=== PATIENT | male | born 1970 | race Caucasian/White ===

== ENCOUNTER 2016-06-21 03:34 | Outpatient (CLI) ==
[2012-11-07 13:18] VITALS: TEMP 97.6
[2016-05-26 11:58] VITALS: BMI 21.2
== END 2016-06-21 03:35 | disposition home or self-care (01) ==
LOC: AMBL 03:34
PROVIDERS: ATTEND Family Medicine
DX: R10.9 Unspecified abdominal pain (principal); K85.20 Alcohol induced acute pancreatitis without necrosis or infection

== ENCOUNTER 2016-09-15 05:13 | Inpatient (IN) ==
[2016-09-15 05:26] VITALS: BMI 19.6
[2016-09-15] MEDS ORDERED: DILAUDID 1 MG/ML SYRINGE IVP STA ×2 (05:36→06:50)
[2016-09-15] MEDS ORDERED: SODIUM CHLORIDE 1,000 ML IV STA (05:36)
[2016-09-15] MEDS ORDERED: ATIVAN IVP STA ×2 (05:36→06:50)
[2016-09-15] MEDS ORDERED: ZOFRAN 4 MG/2 ML IVP STA (05:36)
[2016-09-15 05:56] LABS: BASOPHILS # (AUTO) 0.1 K/uL (0-0.2); BASOPHILS % (AUTO) 0.6 % (0.0-3.0); EOSINOPHILS # (AUTO) 0.2 K/ul (0.0-0.7); EOSINOPHILS % (AUTO) 2.3 % (0.0-7.0); HEMATOCRIT 50.9 % (42.0-52.0); HEMOGLOBIN 18.2 g/dl (14.0-18.0); IMMATURE GRANULOCYTE % (AUTO) 0.3 % (0.0-5.0); LYMPHOCYTES # (AUTO) 2.8 K/uL (0.60-3.4); LYMPHOCYTES % (AUTO) 27.4 (10.0-50.0); MEAN CORPUSCULAR HEMOGLOBIN 34.2 pg (27.0-31.0); MEAN CORPUSCULAR HGB CONC 35.8 (31.8-35.4); MEAN CORPUSCULAR VOLUME 95.7 fl (80.0-94.0); MONOCYTES # (AUTO) 0.8 K/uL (0.4-2.0); MONOCYTES % (AUTO) 7.7 (0-10); NEUTROPHILS # (AUTO) 6.2 K/ul (2.0-6.9); NEUTROPHILS % (AUTO) 61.7; PLATELET COUNT 295 10^3/uL (140-440); RED BLOOD COUNT 5.32 10^6/ul (4.70-6.10); WHITE BLOOD COUNT 10.04 K/ul (4.2-10.2)
--- NOTE | 2016-09-15 06:03 | ED.PDOC ---
General <WESLY BRASHER - Last Filed: 09/15/16 09:19> Stated Complaint: i started drinking again last night--now im hurting Time Seen by Physician: 05:20 Mode of Arrival: Walk-In Information Source: Patient Exam Limitations: No limitations Nursing and Triage Documentation Reviewed and Agree: Yes <ALECSADIALICHA - Last Filed: 09/17/16 06:21> ED Provider: Dr. LICHA MIRANDA Chief Complaint: Abdominal Pain GI Complaint Exam - Abdominal Pain Complaint/Exam Onset: Gradual Duration: several hours Symptoms Are: Still present Timing: Constant Initial Severity: Mild Current Severity: Mild Location of Pain: Diffuse Radiates To: Reports: Back Character: Reports: Dull, Aching, Cramping Aggravating: Reports: None Alleviating: Reports: None Associated Signs and Symptoms: Reports: Back pain, Nausea. Denies: Diaphoresis , Fever, Cough, Chest pain, Dizziness, Constipation, Blood in stool, Dysuria, Urinary frequency, Decreased urine output, Decreased appetite, Discharge, Vomiting, Diarrhea, Decreased activity Related History: Reports: Similar episode (previous hx of pancreatitis) AAA Risk Factors: Reports: None Cardiac Risk Factors: Reports: None Testicular Torsion Risk Factors: Reports: None Surgical Obstruction Risk Factors: Reports: Colicky abdominal pain Abdominal Findings: Present: None Differential Diagnoses: Bowel Obstruction, Constipation, Pancreatitis Quality Indicator For Non-Traumatic Chest Pain/Syncope: EKG Performed <ALECAngelitoLICHA CASTRO - Last Filed: 09/17/16 06:21> Review of Systems - Review Of Systems Constitutional: Reports: No symptoms Eyes: Reports: No symptoms Ears, Nose, Mouth, Throat: Reports: No symptoms Respiratory: Reports: No symptoms Cardiac: Reports: No symptoms GI: Reports: Abdominal pain, Nausea : Reports: No symptoms Musculoskeletal: Reports: No symptoms Skin: Reports: No symptoms Neurological: Reports: No symptoms Endocrine: Reports: No symptoms Hematologic/Lymphatic: Reports: No symptoms All Other Systems: Reviewed and Negative <ALECAngelitoLICHA CASTRO - Last Filed: 09/17/16 06:21> Past Medical History - Past Medical History Previously Healthy: Yes Endocrine: Reports: None Cardiovascular: Reports: AR, Hypertension Respiratory: Reports: None Hematological: Reports: None Gastrointestinal: Reports: Pancreatitis Genitourinary: Reports: None Neuro/Psych: Reports: Anxiety, Other (ALCOHOLIC) Musculoskeletal: Reports: Unknown Cancer: Reports: None Other Pertinent Past Medical History: etoh - Surgical History General Surgical History: Reports: Cholecystectomy, Orthopedic (CARPAL TUNNEL LEFT, hand sx) - Family History Family History: Reports: Unknown - Social History Smoking Status: Current every day smoker, Heavy tobacco smoker Hx Substance Use: Yes Alcohol Screening: Occasionally Lives: With family - Immunizations Tetanus Shot up to Date: Yes (08/24/13) <LICHA MIRANDA - Last Filed: 09/17/16 06:21> Physical Exam - Physical Exam Appearance: Well-appearing, No pain distress, Well-nourished Pain Distress: Moderate Eyes: JOLANTA ENT: Ears normal Neck: Supple Respiratory: Airway patent, Breath sounds clear, Breath sounds equal, Respirations nonlabored Cardiovascular: RRR GI/: Soft, Nontender, No masses, Bowel sounds normal, No Organomegaly Musculoskeletal: Normal strength, ROM intact, No edema, No calf tenderness Skin: Warm, Dry, Normal color Neurological: Sensation intact Psychiatric: Affect appropriate, Mood appropriate <LICHA MIRANDA Last Filed: 09/17/16 06:21> Interpretation - Radiology Interpretation Radiology Interpretation By: Radiologist Radiology Results: Positive Exam Interpreted: CT Scan (Pancraetitis, Pseudocyst ) <WESLY BRASHER - Last Filed: 09/15/16 09:19> Physician Notification - Case Discussed Physician Notified: Dr Pardo Time of Notification: 09:00 <WESLY BRASHER Last Filed: 09/15/16 09:19> - Case Discussed Physician Notified: dr brasher Time of Notification: 07:00 <LICHA MIRANDA - Last Filed: 09/17/16 06:21> Critical Care Note - Critical Care Note Total Time (mins): 0 <LICHA MIRANDA - Last Filed: 09/17/16 06:21> Course - Course Hematology/Chemistry: 09/15/16 05:45 09/15/16 05:45 <WESLY BRASHER - Last Filed: 09/15/16 09:19> - Course Hematology/Chemistry: 09/17/16 05:14 09/17/16 05:14 <LICHA MIRANDA - Last Filed: 09/17/16 06:21> - Course Orders, Labs, Meds: Lab Review 09/15/16 09/15/16 05:45 07:25 WBC 10.04 RBC 5.32 Hgb 18.2 H Hct 50.9 MCV 95.7 H MCH 34.2 H MCHC 35.8 H RDW Coeff of Reginaldo 12.7 Plt Count 295 Immature Gran % (Auto) 0.3 Neut % (Auto) 61.7 Lymph % (Auto) 27.4 Calloway % (Auto) 7.7 Eos % (Auto) 2.3 Baso % (Auto) 0.6 Immature Gran # (Auto) 0.0 Neut # 6.2 Lymph # 2.8 Calloway # 0.8 Eos # 0.2 Baso # 0.1 Sodium 140 Potassium 4.3 Chloride 97 L Carbon Dioxide 28 Anion Gap 19.3 BUN 5 L Creatinine 0.69 Estimated GFR (MDRD) 123.00 BUN/Creatinine Ratio 7.24 Glucose 113 H Calcium 10.6 H Total Bilirubin 0.98 AST 22 ALT 15 Alkaline Phosphatase 96 Total Creatine Kinase 69 Troponin I 0.0100 Total Protein 8.7 H Albumin 4.7 Globulin 4.0 Albumin/Globulin Ratio 1.18 Amylase 186 H Lipase 185 H Urine Color Yellow Urine Clarity Clear Urine pH 6.0 Ur Specific [place] 1.010 Urine Protein 1+ Urine Glucose (UA) Negative Urine Ketones Negative Urine Blood Trace-intact Urine Nitrite Negative Urine Bilirubin Negative Urine Urobilinogen 0.2 Ur Leukocyte Esterase Trace Urine Microscopic RBC 2-5 Urine Microscopic WBC 2-5 Ur Squamous Epith Cells Not present Ur Renal Epithelial Cell 0-2 Urine Bacteria Trace Urine Mucus Trace Urine Opiates Screen Positive Ur Oxycodone Screen Negative Urine Methadone Screen Negative Ur Propoxyphene Screen Negative Ur Barbiturates Screen Negative U Tricyclic Antidepress Negative Ur Phencyclidine Scrn Negative Ur Amphetamine Screen Negative U Methamphetamines Scrn Negative U Benzodiazepines Scrn Negative Urine Cocaine Screen Negative U Cannabinoids Screen Positive Plasma/Serum Alcohol < 10.0 Orders Category Date Time Status EKG-(ED ONLY) Stat CARDIO 09/15/16 05:35 Completed ED IV/MEDIPORT/POWERPORT .ONCE EMERGENCY 09/15/16 05:36 Active AMYLASE Stat LAB 09/15/16 05:45 Completed CBC W/ AUTO DIFF Stat LAB 09/15/16 05:45 Completed COMPREHENSIVE METABOLIC PANEL Stat LAB 09/15/16 05:45 Completed CREATINE KINASE Stat LAB 09/15/16 05:45 Completed DRUG SCREEN, URINE, RAPID Stat LAB 09/15/16 07:25 Completed ETOH LEVEL [BLOOD ALCOHOL] Stat LAB 09/15/16 05:45 Completed LIPASE Stat LAB 09/15/16 05:45 Completed TROPONIN I Stat LAB 09/15/16 05:45 Completed URINALYSIS C & S IF INDICATED Stat LAB 09/15/16 07:25 Completed 0.9 % Sodium Chloride [Saline Flush] MEDS 09/15/16 05:36 Active 1 syr IVF PRN PRN Hydromorphone HCl [Dilaudid 1 mg/ml Syringe] MEDS 09/15/16 05:36 Discontinued 1 mg IVP ONCE STA Hydromorphone HCl [Dilaudid 1 mg/ml Syringe] MEDS 09/15/16 06:50 Discontinued 1 mg IVP ONCE STA Lorazepam Inj [Ativan] MEDS 09/15/16 05:36 Discontinued 1 mg IVP ONCE STA Lorazepam Inj [Ativan] MEDS 09/15/16 06:50 Discontinued 1 mg IVP ONCE STA Ondansetron HCl/Pf [Zofran 4 mg/2 ml] MEDS 09/15/16 05:36 Discontinued 4 mg IVP ONCE STA Sodium Chloride 0.9% [Sodium Chloride] 1,000 ml MEDS 09/15/16 05:36 Discontinued IV 100 mls/hr CT ABDOMEN/PELVIS WO CONTRAST Stat RADS 09/15/16 05:35 Completed Medications Generic Name Dose Route Start Last Admin Trade Name Freq PRN Reason Stop Dose Admin Enoxaparin Sodium 40 mg 09/16/16 09:00 09/16/16 08:19 Lovenox SUBCUT 40 mg DAILY MARA Administration Hydromorphone HCl 1 mg 09/15/16 09:08 09/17/16 03:01 Dilaudid 1 Mg/Ml Syringe IVP 1 mg Q4HR PRN Administration Severe Pain Sodium Chloride 1,000 mls @ 150 mls/hr 09/15/16 09:30 09/17/16 00:59 Sodium Chloride IV 150 mls/hr .Q6H40M MARA Administration Lorazepam 1 mg 09/15/16 13:30 09/17/16 01:41 Ativan IVP 1 mg Q6H MARA Administration Non-Formulary Medication 1 cap 09/15/16 09:15 Lipase/Protease/Amylase [Sun Joshi 16,800 Unit Cap] PO DIRECTED MARA Ondansetron HCl 4 mg 09/15/16 09:08 09/15/16 18:33 Zofran 4 Mg/2 Ml IVP 4 mg Q6H PRN Administration Nausea / Vomiting Sodium Chloride 1 syr 09/15/16 05:36 09/17/16 03:01 Saline Flush IVF 1 syr PRN PRN Administration To flush IV Discontinued Medications Generic Name Dose Route Start Last Admin Trade Name Freq PRN Reason Stop Dose Admin Hydromorphone HCl 1 mg 09/15/16 05:36 09/15/16 06:13 Dilaudid 1 Mg/Ml Syringe IVP 09/15/16 05:37 1 mg ONCE STA Administration Hydromorphone HCl 1 mg 09/15/16 06:50 09/15/16 07:22 Dilaudid 1 Mg/Ml Syringe IVP 09/15/16 06:51 1 mg ONCE STA Administration Sodium Chloride 1,000 mls @ 100 mls/hr 09/15/16 05:36 09/15/16 06:50 Sodium Chloride IV 09/15/16 15:35 100 mls/hr .Q10H STA Administration Lorazepam 1 mg 09/15/16 05:36 09/15/16 06:13 Ativan IVP 09/15/16 05:37 1 mg ONCE STA Administration Lorazepam 1 mg 09/15/16 06:50 09/15/16 07:22 Ativan IVP 09/15/16 06:51 1 mg ONCE STA Administration Ondansetron HCl 4 mg 09/15/16 05:36 09/15/16 06:14 Zofran 4 Mg/2 Ml IVP 09/15/16 05:37 4 mg ONCE STA Administration Vital Signs: Temp Pulse Resp BP Pulse Ox 09/15/16 05:16 97.6 F 102 H 24 150/96 H 98 Departure - Departure Time of Disposition: 09:20 <WESLY BRASHER - Last Filed: 09/15/16 09:19> - Departure Pt referred to PMD for follow-up: No Disposition Discussed With: Patient <LICHA MIRANDA - Last Filed: 09/17/16 06:21> - Departure Disposition: ADMITTED INPATIENT Discharge Problem: Abdominal pain Acute pancreatitis Qualifiers: Pancreatitis type: alcohol induced Acute pancreatitis complication: no infection or necrosis Qualifier Code: (K85.20) Alcohol induced acute pancreatitis without necrosis or infection Condition: Stable Allergies/Adverse Reactions: Allergies No Known Allergies Allergy (Verified 09/15/16 05:14) Home Medications: Ambulatory Orders Lipase/Protease/Amylase [Pancreazgracy Joshi 16,800 Unit Cap] 1 cap PO DIRECTED Oxycodone-Acetaminophen 10-325 [Percocet 10-325] 1 tab PO Q8H 09/15/16
[2016-09-15 06:27] LABS: ALBUMIN 4.7 g/dL (3.4-5.0); ALBUMIN/GLOBULIN RATIO 1.18; ANION GAP 19.3; BILIRUBIN,TOTAL 0.98 mg/dL (0.00-1.20); BUN/CREATININE RATIO 7.24; CALCIUM 10.6 mg/dL (8.2-10.2); CREATININE 0.69 mg/dL (0.60-1.10); POTASSIUM 4.3 mmol/L (3.5-5.1); TOTAL PROTEIN 8.7 g/dL (6.4-8.2); TROPONIN I 0.01 ng/ml (0.0000-0.4000)
--- NOTE | 2016-09-15 06:39 | CT ---
EXAM: CT scan abdomen pelvis without contrast HISTORY: Abdominal pain COMPARISON: CT scan abdomen pelvis 04/04/2016 FINDINGS: Contiguous axial images obtained through the abdomen pelvis without contrast utilizing 3- mm collimation. Sagittal and coronal reconstructions were imaged and reviewed.. The visualized bernadette g bases are clear. There has been prior cholecystectomy. Fatty infiltration is seen within the leah er.. There has been interval enlargement previously noted pancreatic pseudocyst in the body/tail re gion measuring 8.1 x 10.55 cm. Prior measurement was 8.7 x 7.2 cm. Redemonstrated is extensive calc ification within the pancreatic head uncinate process compatible with chronic pancreatitis. Minimal peripancreatic inflammatory changes are seen in the head region suggestive of superimposed acute prado creatitis. There is minimal fluid is seen in the retro mesenteric plane. There is normal appendix.. The kidneys morphologically normal. There is a tiny fat containing umbilical hernia.. There is div erticulosis without diverticulitis.. Degenerative changes are seen within the lower lumbar spine. IMPRESSION: Interval increase in size of previously noted pancreatic pseudocyst. Chronic calcific pancreatitis with superimposed acute pancreatitis in the head and uncinate region.. ASVD without aneurysm. Fatty liver. Diverticulosis without diverticulitis.
[2016-09-15 07:37] LABS: BILIRUBIN,URINE Negative (NEGATIVE); KETONES,URINE Negative (NEGATIVE); LEUKOCYTE ESTERASE ,URINE Trace (NEGATIVE); NITRITE,URINE Negative (NEGATIVE); PROTEIN,URINE 1+ (NEGATIVE); URINE, BLOOD Trace-intact (NEGATIVE)
[2016-09-15 07:52] LABS: ADD URINE MICROSCOPIC YES; COCAIN SCREEN,URINE NEGATIVE (NEGATIVE)
[2016-09-15 07:53] LABS: BACTERIA,URINE TRACE (NOT PRESENT)
[2016-09-15] MEDS ORDERED: ZOFRAN 4 MG/2 ML IVP PRN (09:08)
[2016-09-15] MEDS ORDERED: LIPASE PO SCH (09:15)
[2016-09-15] MEDS ORDERED: AMYLASE PO SCH (09:15)
[2016-09-15] MEDS ORDERED: PROTEASE PO SCH (09:15)
[2016-09-15] MEDS: SODIUM CHLORIDE 1,000 ML IV SCH ×3 (09:41→22:31)
[2016-09-15] MEDS: DILAUDID 1 MG/ML SYRINGE IVP PRN ×4 (09:43→22:23)
[2016-09-15] MEDS: ATIVAN IVP SCH ×2 (13:29→20:14)
[2016-09-16] MEDS: ATIVAN IVP SCH ×4 (01:21→20:34)
[2016-09-16] MEDS: DILAUDID 1 MG/ML SYRINGE IVP PRN ×6 (02:34→23:05)
[2016-09-16] MEDS: SODIUM CHLORIDE 1,000 ML IV SCH ×3 (05:13→19:05)
[2016-09-16 06:51] LABS: BASOPHILS % (AUTO) 0.6 % (0.0-3.0); EOSINOPHILS # (AUTO) 0.2 K/ul (0.0-0.7); EOSINOPHILS % (AUTO) 3.7 % (0.0-7.0); HEMOGLOBIN 15.6 g/dl (14.0-18.0); IMMATURE GRANULOCYTE % (AUTO) 0.2 % (0.0-5.0); LYMPHOCYTES # (AUTO) 1.9 K/uL (0.60-3.4); LYMPHOCYTES % (AUTO) 29.7 (10.0-50.0); MEAN CORPUSCULAR HGB CONC 34.7 (31.8-35.4); MONOCYTES # (AUTO) 0.8 K/uL (0.4-2.0); MONOCYTES % (AUTO) 11.7 (0-10); NEUTROPHILS # (AUTO) 3.5 K/ul (2.0-6.9); NEUTROPHILS % (AUTO) 54.1; PLATELET COUNT 196 10^3/uL (140-440); RED BLOOD COUNT 4.59 10^6/ul (4.70-6.10); WHITE BLOOD COUNT 6.43 K/ul (4.2-10.2)
[2016-09-16 07:08] LABS: ALBUMIN 3.6 g/dL (3.4-5.0); ALBUMIN/GLOBULIN RATIO 1.16; BILIRUBIN,TOTAL 1.18 mg/dL (0.00-1.20); BUN/CREATININE RATIO 8.69; CALCIUM 9.3 mg/dL (8.2-10.2); CREATININE 0.69 mg/dL (0.60-1.10); TOTAL PROTEIN 6.7 g/dL (6.4-8.2)
[2016-09-16] MEDS: LOVENOX SUBCUT SCH (08:19)
[2016-09-16 16:37] LABS: AMYLASE 193 U/L (25-115); LIPASE 240 U/L (8-78)
[2016-09-17] MEDS: SODIUM CHLORIDE 1,000 ML IV SCH ×2 (00:59→07:54)
[2016-09-17] MEDS: ATIVAN IVP SCH ×3 (01:41→13:41)
[2016-09-17] MEDS: DILAUDID 1 MG/ML SYRINGE IVP PRN ×4 (03:01→15:40)
[2016-09-17 05:16] LABS: BASOPHILS % (AUTO) 0.7 % (0.0-3.0); EOSINOPHILS # (AUTO) 0.3 K/ul (0.0-0.7); EOSINOPHILS % (AUTO) 4.9 % (0.0-7.0); HEMATOCRIT 44.3 % (42.0-52.0); HEMOGLOBIN 15.3 g/dl (14.0-18.0); IMMATURE GRANULOCYTE % (AUTO) 0.2 % (0.0-5.0); LYMPHOCYTES # (AUTO) 2.3 K/uL (0.60-3.4); MEAN CORPUSCULAR HEMOGLOBIN 33.7 pg (27.0-31.0); MEAN CORPUSCULAR HGB CONC 34.5 (31.8-35.4); MEAN CORPUSCULAR VOLUME 97.6 fl (80.0-94.0); MONOCYTES # (AUTO) 0.6 K/uL (0.4-2.0); MONOCYTES % (AUTO) 9.8 (0-10); NEUTROPHILS # (AUTO) 2.9 K/ul (2.0-6.9); NEUTROPHILS % (AUTO) 47.4; PLATELET COUNT 178 10^3/uL (140-440); RED BLOOD COUNT 4.54 10^6/ul (4.70-6.10); WHITE BLOOD COUNT 6.14 K/ul (4.2-10.2)
[2016-09-17 05:37] LABS: ALBUMIN 3.6 g/dL (3.4-5.0); ALBUMIN/GLOBULIN RATIO 1.13; ANION GAP 15.8; BILIRUBIN,TOTAL 1.19 mg/dL (0.00-1.20); BUN/CREATININE RATIO 9.37; CALCIUM 9.2 mg/dL (8.2-10.2); CREATININE 0.64 mg/dL (0.60-1.10); POTASSIUM 3.8 mmol/L (3.5-5.1); TOTAL PROTEIN 6.8 g/dL (6.4-8.2)
[2016-09-17] MEDS: LOVENOX SUBCUT SCH (08:01)
--- NOTE | 2016-09-17 13:23 | HP ---
CHIEF COMPLAINT: Abdominal pain, elevated serum amylase and lipase. SOURCE OF HISTORY: Patient, as well as nursing notes. HISTORY OF PRESENT ILLNESS: The patient claimed to have not had any alcohol for 2 months. He came out of alcohol rehab. Yesterday was his daughter's birthday and they did have some celebration in the evening and he did drink four to five cans of beer with the food that appears to be greasy. The patient claims to have not had any alcohol at all except yesterday evening. The patient , early this morning, did experience abdominal pain and the pain is quite severe so he presented to the emergency room in the visiting housekeeper hours. The patient's work up showed a normal WBC at 10,040, elevated hemoglobin and hematocrit with elevated MCV and MCH and MCHC. Chemistries showed slight abnormality, but not clinically significant. Total protein 8.7, serum amylase 186 and lipase 185. Urinalysis with 1+ protein, trace of urine blood, RBC 2 to 5, WBC 2 to 5, trace of bacteria. Urine drug screen was positive for opiates and cannabinoids. The patient admitted to smoking marijuana two days ago. CT scan of the abdomen showed findings of chronic pancreatitis with maybe a slight suggestion of mild pancreatitis. Emergency room physician did contact with regards to admission because of the abdominal pain and the findings of elevated serum amylase and lipase. The patient was then subsequently admitted after my discussion with ER physician. PAST PERSONAL HISTORY: The patient had been admitted to this facility 2015 because of pancreatitis secondary to alcohol. He had been to detox for about two months according to him and never had any alcohol for the last two months until last night. He also an episode of pancreatitis prior to that admission in March 2016. He has a large pancreatic pseudocyst and has been referred to [place] and another hospital and they would not operate on him since it was not big enough according to the patient. The patient had laparoscopic cholecystectomy 2014 at [facility]. The patient back in 2011 had an episode of suicidal attempt. He had multiple visits to the emergency room because of abdominal pain. The patient had previous cellulitis of the left hand secondary to a puncture wound. FAMILY HISTORY: Father of myocardial infarction at home. Mother was a heavy alcohol user. Mother also at home, probably from drinking or myocardial infarction. His father at age 53 and worked all of his life. Two siblings of problems secondary to alcohol complications. He is the last of the five members of the family, father, mother and two siblings. SOCIAL HISTORY: The patient is and resides with his . He smokes cigarettes heavily. He had been dry for two months until last night according to him. The patient is unemployed. MEDICATIONS: Prior to this admission; Pancreaze 16,800 unit capsule, one capsule as directed Oxycodone/Tylenol 10/325 mg one every 8 hours prn for abdominal pain. He claims that he takes it sparingly. ALLERGIES: No known drug allergies. REVIEW OF SYSTEMS: CONSTITUTIONAL: No fever or chills and no significant fatigue. ER MEDICAL TECHNICIAN: No seizures. VISUAL: No blurring, double or transient loss of vision. AUDITORY: Hearing is adequate. RESPIRATORY: The patient has no significant cough. CARDIOVASCULAR: Denies any chest pain or tightness. GASTROINTESTINAL: The patient has upper quadrant abdominal pain. GENITOURINARY: Denies any pain, frequency or urgency of urination. MUSCULOSKELETAL: The patient has chronic lumbar pain. ENDOCRINE: Negative. INTEGUMENT: No rash or pruritus. HEMATOLOGIC: Negative. PSYCHIATRIC: Affect appears to be normal. PHYSICAL EXAMINATION: GENERAL: We have a 45 year old male admitted to the floor at 09:20 a.m. with the following vital signs. VITAL SIGNS: Temperature 97.7, pulse 86, blood pressure 130/68, respiratory rate 20, oxygen saturation 94 at room air. It was 98 at the emergency room. He weighed 157 pounds on the floor. HEAD: Unremarkable. FACE: Symmetrical and equal with no facial weakness and no significant tenderness in the frontal or maxillary sinus areas to palpation under pressure. EYES: Pupils equal/reactive to light. Conjunctivae not pale. Sclerae not icteric. MOUTH: Unremarkable. THROAT: No inflammation, tumors or exudate. NECK: No masses. No bruit. No tenderness. No rigidity. CHEST: Essentially symmetrical and equal with good expansion. LUNGS: Brath sounds are heard in both sides. No rales or wheezing. HEART: Audible and regular with good tones. No murmurs. ABDOMEN: Flat with marked tenderness, more so in the upper quadrant. Bowel sounds are present and normoactive. EXTERNAL GENITALIA: Not examined. RECTAL: Not performed. LOWER EXTREMITIES: Essentially symmetrical and equal with no significant edema. Pedal pulses are present. UPPER EXTREMITIES: Symmetrical and equal. ASSESSMENT: 1. ABDOMINAL PAIN WITH ACUTE EXACERBATION SECONDARY TO ALCOHOL INTAKE. 2. HISTORY OF CHRONIC PANCREATITIS 3. HISTORY OF PANCREATIC PSEUDOCYST 4. HISTORY OF CHRONIC TOBACCO USE AND ABUSE, PERSISTENT 5. HISTORY OF CHRONIC ALCOHOL USE AND ABUSE, DRY FOR TWO MONTHS UNTIL YESTERDAY 6. PREVIOUS CHOLECYSTECTOMY AT [facility] 7. CHRONIC LUMBAR PAIN 8. HISTORY OF FRACTURE OF 11TH RIB POSTERIOR 9. HISTORY OF T9 COMPRESSION FRACTURE MTDD
[2016-09-17 17:18] VITALS: BP 149/88; TEMP 97.7
[2016-09-17] MEDS ORDERED: DILAUDID 1 MG/ML SYRINGE IVP STA (18:38)
--- NOTE | 2016-09-18 08:38 | PN ---
DATE OF VISIT: 09/16/16 SUBJECTIVE: The patient is a 45 year old male who has chronic pancreatitis with exacerbation because of alcohol intake. He is feeling better, the pain is somewhat less and the tenderness in the abdomen is slightly less. The bowel sounds are active. CBC showed normal WBC, normal hgb and hct, elevated MCV and MCH, normal plt count, electrolytes normal, CO2 normal 29, BUN 6, creatinine 0.69, EGFR 123, fasting blood sugar 101 and calcium 9.3. Liver is normal, total protein was elevated on admission however subsequent determination showed a total protein of 6.7 and 6.8. The rise maybe partly due to dehydration. The serum amylase went up slightly from 186-193 and lipase 185-240. His levels were markedly elevated on the previous admission. Vital signs at 2:00 in the afternoon 09/16/16 showed a temperature of 98, pulse 68, blood pressure 112/62, respiratory rate 16, oxygen saturation undetermined. He had one done at 9:59pm and was recorded at 98%. This patient will be given a clear liquid diet and see how he does. He is again advised not to go out and smoke but he insists on going out. NICKI
--- NOTE | 2016-09-28 13:03 | DS ---
PATIENT IDENTIFICATION: 45 year old male presented to the emergency room because of abdominal pain, mostly upper. He had been to Rehab for alcohol dependency and had not had any alcohol in the last two months. The patient, the day before presented to the emergency room, had drank four or five cans of beer during his daughters birthday. The patient did experience pain and was increasing in intensity requiring presentation to the emergency room. The CBC showed normal WBC, serum amylase and lipase slightly elevated at 186 and 185 respectively. His drug screen was positive for opiates and cannabinoids. The patient did admit to smoking marijuana. CT scan of the abdomen showed findings of chronic pancreatitis and maybe with slight suggestion of mild acute pancreatitis. This patient had previous episodes of pancreatitis requiring admission for control of pain. He was also known to have a pseudocyst of the pancreas and had been to [facility] and another hospital and was told they are not going to operate of on the pseudocyst at that time. HOSPITAL COURSE: The patient on examination was alert, oriented times four, not dyspneic, nor tachypneic. VITAL SIGNS: Blood pressure 130/68, temperature 97.7, pulse 86, oxygen saturation 98 at room air in the emergency room. ABDOMEN: The abdomen is tender and generalized, but more in the upper abdomen. Bowel sounds are present and active. LUNGS: Clear. HEART: Normal sinus rhythm. The patient was admitted for control of pain and fluid replacement. His medications prior to admission consisted of Pancreaze 16,800 units one cap as directed. I would say that it would be one capsule before meals. He also had Oxycodone/Tylenol 10/325 mg one tablet every 8 hours prn. He had no know drug allergies. The patient while in the hospital was kept NPO and placed on normal saline at 150 cc per hour. He also was given Ativan 1 mg IV every 6 hours for DT prevention and Lovenox for DVT precautions. He was given Dilaudid 1 mg IV ever 4 hours prn for pain. Zofran 4 mg IV every 6 hours for nausea. The patient's vital signs showed a normal temperature throughout his hospital stay. Blood pressure has fluctuated maybe related to pain and the lowest was 112/62 and a high of 172/96. Serum amylase had risen on 09/16/2016 193 and 240 respectively. His serum amylase on 09/17/2016 was down to 119 and 104. This patient was advised that the numbers with regards to the pancreatitis is down, but not back to normal. He was eager to go home and he told me that his pain is now tolerable. He has a prescription at home of Oxycodone/Tylenol 10/325 mg to be taken one every 8 hours. Drug screen was positive for opiates, but negative for Oxycodone. It was also positive for cannabinoids. His serum alcohol is less than 10 mg %. The patient at the time of discharge was alert, ambulatory with tolerable pain. VITAL SIGNS: Temperature 97.7, pulse rate 98, blood pressure 149/88, respiratory rate 220, oxygen saturation 98 at room air. ABDOMEN: Softer with some tenderness, but muscular guarding. Bowel sounds are active. LUNGS: Clear. HEART: Normal sinus rhythm. LOWER EXTREMITIES: No tenderness in the calf muscles. The patient is then discharged today and instructed never to resume drinking. I told him that he can drink only a half a bottle of alcohol and that the pain maybe exacerbated. FINAL DIAGNOSES: 1. CHRONIC PANCREATITIS WITH ACUTE EXACERBATION SECONDARY TO ALCOHOL INTAKE. 2. HISTORY OF PANCREATIC PSEUDOCYST 3. HISTORY OF CHRONIC TOBACCO USE AND ABUSE, PERSISTENT 4. HISTORY OF PREVIOUS CHOLECYSTECTOMY 5. HISTORY OF CHRONIC LUMBAR PAIN 6. HISTORY OF FRACTURE OF 11TH RIB POSTERIOR 7. HISTORY OF T9 COMPRESSION FRACTURE PROGNOSIS: Guarded. MTDD
== END 2016-09-17 19:13 | disposition home or self-care (01) | DRG 439 ==
LOC: ED 05:13 → MEDSURG B 08:45
PROVIDERS: ADMIT General Practice; ATTEND General Practice
DX: K86.0 Alcohol-induced chronic pancreatitis (principal); K86.3 Pseudocyst of pancreas; K85.20 Alcohol induced acute pancreatitis without necrosis or infection; F10.20 Alcohol dependence, uncomplicated; F11.90 Opioid use, unspecified, uncomplicated; F12.90 Cannabis use, unspecified, uncomplicated; I10 Essential (primary) hypertension; F17.200 Nicotine dependence, unspecified, uncomplicated; I25.2 Old myocardial infarction; Z79.899 Other long term (current) drug therapy
CPT/HCPCS: 36415; 80053; 80306; 80307; 81001; 82150; 82550; 83690; 84484; 85025; 93005; 93010; 96361; 96374; 96375; 96376; 99223; 99231; 99239; 99284

== ENCOUNTER 2016-10-10 08:58 | Emergency (ER) ==
[2016-10-10 09:25] VITALS: BP 150/118; TEMP 97.3; BMI 19.3
--- NOTE | 2016-10-10 09:30 | ED.PDOC ---
General ED Provider: Dr. DELAI MONDRAGON JR Chief Complaint: Abdominal Pain Stated Complaint: Left abd/flank pain. Onset 050. States no consumption of ETOH x 3 days. Hx alcoholism et pancreatitis. Nauseated[End]SINCE 499 97.3 102 22 98% 150/118 03/05 Time Seen by Physician: 09:28 Mode of Arrival: Walk-In Information Source: Patient Exam Limitations: No limitations [facility] Nursing and Triage Documentation Reviewed and Agree: No Review of Systems - Review Of Systems Constitutional: Reports: Malaise, Weakness Eyes: Reports: No symptoms Ears, Nose, Mouth, Throat: Reports: No symptoms Respiratory: Reports: No symptoms Cardiac: Reports: No symptoms GI: Reports: Abdominal pain, Nausea : Reports: No symptoms Musculoskeletal: Reports: No symptoms Skin: Reports: No symptoms Neurological: Reports: No symptoms Endocrine: Reports: No symptoms Hematologic/Lymphatic: Reports: No symptoms All Other Systems: Other Past Medical History - Past Medical History Previously Healthy: Yes Endocrine: Reports: None Cardiovascular: Reports: [place], Hypertension Respiratory: Reports: None Hematological: Reports: None Gastrointestinal: Reports: Pancreatitis Genitourinary: Reports: None Neuro/Psych: Reports: Anxiety, Other (ALCOHOLIC) Musculoskeletal: Reports: Unknown Cancer: Reports: None Other Pertinent Past Medical History: etoh - Surgical History General Surgical History: Reports: Cholecystectomy, Orthopedic (CARPAL TUNNEL LEFT, hand surgery on left) - Family History Family History: Reports: Unknown - Social History Smoking Status: Current every day smoker, Heavy tobacco smoker Hx Substance Use: Yes Alcohol Screening: Occasionally Physical Exam - Physical Exam Appearance: Well-appearing, Thin Pain Distress: Moderate Eyes: JOLANTA, EOMI, Conjunctiva clear ENT: Ears normal, Nose normal, Oropharynx normal Neck: Supple Respiratory: Airway patent, Breath sounds clear, Breath sounds equal, Respirations nonlabored Cardiovascular: RRR, Pulses normal, No rub, No murmur GI/: No masses, Tender, Bowel sounds hypoactive Musculoskeletal: Normal strength, ROM intact, No edema, No calf tenderness Skin: Warm, Dry, Normal color Neurological: Sensation intact, Motor intact, Reflexes intact, Cranial nerves intact, Alert, Oriented Psychiatric: Anxious Physician Notification - Case Discussed Physician Notified: Dr Pardo called Time of Notification: 10:42 (will call back) Critical Care Note - Critical Care Note Total Time (mins): 0 Course - Course Hematology/Chemistry: 10/10/16 09:50 10/10/16 09:50 Orders, Labs, Meds: Lab Review 10/10/16 09:50 WBC 7.74 RBC 4.99 Hgb 17.2 Hct 47.4 MCV 95.0 H MCH 34.5 H MCHC 36.3 H RDW Coeff of Reginaldo 12.6 Plt Count 223 Immature Gran % (Auto) 0.4 Neut % (Auto) 68.1 Lymph % (Auto) 20.4 Karnes % (Auto) 9.4 Eos % (Auto) 1.3 Baso % (Auto) 0.4 Immature Gran # (Auto) 0.0 Neut # 5.3 Lymph # 1.6 Karnes # 0.7 Eos # 0.1 Baso # 0.0 Sodium 139 Potassium 4.7 Chloride 101 Carbon Dioxide 20 L Anion Gap 22.7 BUN 6 L Creatinine 0.76 Estimated GFR (MDRD) 110.00 BUN/Creatinine Ratio 7.89 Glucose 95 Calcium 10.4 H Total Bilirubin 0.84 AST 18 ALT 10 L Alkaline Phosphatase 115 Total Protein 8.4 H Albumin 4.4 Globulin 4.0 Albumin/Globulin Ratio 1.10 Amylase 125 H Lipase 107 H H. pylori IgG Antibody Negative Orders Category Date Time Status IV [ED IV/MEDIPORT/POWERPORT] .ONCE EMERGENCY 10/10/16 09:43 Active AMYLASE Stat LAB 10/10/16 09:50 Completed CBC W/ AUTO DIFF Stat LAB 10/10/16 09:50 Completed COMPREHENSIVE METABOLIC PANEL Stat LAB 10/10/16 09:50 Completed H. PYLORI SCREEN Stat LAB 10/10/16 09:50 Completed LIPASE Stat LAB 10/10/16 09:50 Completed UA [URINALYSIS C & S IF INDICATED] Stat LAB 10/10/16 09:26 Uncollected 0.9 % Sodium Chloride [Saline Flush] MEDS 10/10/16 09:43 Active 1 syr IVF PRN PRN Ketorolac Tromethamine [Toradol] MEDS 10/10/16 09:43 Discontinued 30 mg IVP ONCE STA Meperidine HCl/Pf [Demerol 50 mg/ml Syringe] MEDS 10/10/16 11:29 Stat 50 mg IVP ONCE STA Ondansetron HCl/Pf [Zofran 4 mg/2 ml] MEDS 10/10/16 09:36 Discontinued 4 mg IVP ONCE STA Sodium Chloride 0.9% [Sodium Chloride] 1,000 ml MEDS 10/10/16 10:[address] ABDOMEN/PELVIS WO CONTRAST Stat RADS 10/10/16 09:28 Completed Medications Generic Name Dose Route Start Last Admin Trade Name Freq PRN Reason Stop Dose Admin Sodium Chloride 1 syr 10/10/16 09:43 10/10/16 10:10 Saline Flush IVF 1 syr PRN PRN Administration To flush IV Discontinued Medications Generic Name Dose Route Start Last Admin Trade Name Freq PRN Reason Stop Dose Admin Sodium Chloride 1,000 mls @ 1,000 mls/hr 10/10/16 10:09 10/10/16 10:21 Sodium Chloride IV 10/10/16 11:08 1,000 mls/hr BOLUS STA Administration Ketorolac Tromethamine 30 mg 10/10/16 09:43 10/10/16 10:13 Toradol IVP 10/10/16 09:44 30 mg ONCE STA Administration Meperidine HCl 50 mg 10/10/16 11:29 Demerol 50 Mg/Ml Syringe IVP 10/10/16 11:30 ONCE STA Ondansetron HCl 4 mg 10/10/16 09:36 10/10/16 10:08 Zofran 4 Mg/2 Ml IVP 10/10/16 09:37 4 mg ONCE STA Administration Vital Signs: Temp Pulse Resp BP Pulse Ox 10/10/16 09:02 97.3 F L 102 H 22 150/118 H 98 Departure - Departure Time of Disposition: 11:37 Disposition: HOME SELF-CARE Discharge Problem: Abdominal pain, Pancreatitis, recurrent Instructions: Abdominal Pain (ED), Pancreatitis (ED) Condition: Stable Pt referred to PMD for follow-up: Yes Additional Instructions: follow up Saturday with Clinic return if fever over 101.0 if unable to keep clear liquids down if voiding less than three times in 24 hours increase fluids clear liquids 8-10 cups daily Prescriptions: Oxycodone HCl 5 mg PO QID PRN #20 capsule PRN Reason: Severe Pain Allergies/Adverse Reactions: Allergies No Known Allergies Allergy (Verified 10/10/16 09:09) Home Medications: Ambulatory Orders Lipase/Protease/Amylase [Sun Joshi 16,800 Unit Cap] 1 cap PO DIRECTED 04/ 22/17 Oxycodone HCl 5 mg PO QID PRN #20 capsule 10/10/16
[2016-10-10] MEDS ORDERED: TORADOL IM STA (09:35)
[2016-10-10] MEDS ORDERED: ZOFRAN 4 MG/2 ML IVP STA (09:36)
[2016-10-10] MEDS ORDERED: TORADOL IVP STA (09:43)
[2016-10-10 09:58] LABS: BASOPHILS % (AUTO) 0.4 % (0.0-3.0); EOSINOPHILS # (AUTO) 0.1 K/ul (0.0-0.7); EOSINOPHILS % (AUTO) 1.3 % (0.0-7.0); HEMATOCRIT 47.4 % (42.0-52.0); HEMOGLOBIN 17.2 g/dl (14.0-18.0); IMMATURE GRANULOCYTE % (AUTO) 0.4 % (0.0-5.0); LYMPHOCYTES # (AUTO) 1.6 K/uL (0.60-3.4); LYMPHOCYTES % (AUTO) 20.4 (10.0-50.0); MEAN CORPUSCULAR HEMOGLOBIN 34.5 pg (27.0-31.0); MEAN CORPUSCULAR HGB CONC 36.3 (31.8-35.4); MONOCYTES # (AUTO) 0.7 K/uL (0.4-2.0); MONOCYTES % (AUTO) 9.4 (0-10); NEUTROPHILS # (AUTO) 5.3 K/ul (2.0-6.9); NEUTROPHILS % (AUTO) 68.1; PLATELET COUNT 223 10^3/uL (140-440); RED BLOOD COUNT 4.99 10^6/ul (4.70-6.10); WHITE BLOOD COUNT 7.74 K/ul (4.2-10.2)
--- NOTE | 2016-10-10 10:08 | CT ---
EXAM: CT Abdomen without contrast. CT Pelvis without contrast. HISTORY: Lower abdominal pain. COMPARISON: 09/15/2016. TECHNIQUE: Multiple axial images of the abdomen and pelvis were obtained without intravenous contra st. Images were reformatted in the coronal plane. FINDINGS: Please note that evaluation of the abdominal and pelvic structures is limited due to lack of intravenous contrast. Right lower lobe calcified granuloma noted. Degenerative changes present in the spine. Gallbladder is absent. The liver, spleen, and adrenal glands demonstrate normal contour. Coarse ca lcifications noted throughout the pancreatic head and body. Possible mild edema surrounding the prado creatic head although degree of inflammation has significantly decreased since the prior study. Wit hin the pancreatic tail is a circumscribed fluid collection measuring approximately 11.4 x 9.5 cm of . No adjacent inflammation or internal air identified. No calcified renal stones or hydronephrosis detected. The bowel is normal in course and caliber without evidence for obstruction or inflammatory process. Colonic diverticulosis noted. The appendix is normal. Urinary bladder is unremarkable. No free f luid or free air identified. Atherosclerotic calcifications are present. IMPRESSION: 1. Significant decrease in amount of edema surrounding the pancreatic head. Mild edema surrounding the pancreatic head currently could be due to recurrent acute pancreatitis or residual edema from p revious episode. 2. Stable large pancreatic tail pseudocyst and evidence of chronic pancreatitis.
[2016-10-10] MEDS ORDERED: SODIUM CHLORIDE 1,000 ML IV STA (10:09)
[2016-10-10 10:11] LABS: H. PYLORI ANTIBODY NEGATIVE (NEGATIVE); H.PYLORI INTERNAL QC INTERNAL QC VALID
[2016-10-10 10:19] LABS: ALBUMIN 4.4 g/dL (3.4-5.0); ALBUMIN/GLOBULIN RATIO 1.1; ANION GAP 22.7; BILIRUBIN,TOTAL 0.84 mg/dL (0.00-1.20); CALCIUM 10.4 mg/dL (8.2-10.2); POTASSIUM 4.7 mmol/L (3.5-5.1); TOTAL PROTEIN 8.4 g/dL (6.4-8.2)
[2016-10-10 10:20] LABS: BUN/CREATININE RATIO 7.89; CREATININE 0.76 mg/dL (0.60-1.10)
[2016-10-10] MEDS ORDERED: DEMEROL 50 MG/ML SYRINGE IVP STA (11:29)
== END 2016-10-10 12:00 | disposition home or self-care (01) ==
LOC: ED 08:58
DX: K86.1 Other chronic pancreatitis (principal); R10.9 Unspecified abdominal pain; F10.20 Alcohol dependence, uncomplicated; I10 Essential (primary) hypertension; I25.2 Old myocardial infarction; F17.210 Nicotine dependence, cigarettes, uncomplicated
CPT/HCPCS: 36415; 80053; 82150; 83690; 85025; 86677; 96361; 96374; 96375; 99283

== ENCOUNTER 2016-11-11 16:41 | Inpatient (IN) ==
[2016-11-11] MEDS ORDERED: MORPHINE 4 MG/ML SYRINGE IVP STA (16:47)
[2016-11-11] MEDS ORDERED: ZOFRAN 4 MG/2 ML IVP STA (16:47)
[2016-11-11] MEDS ORDERED: SODIUM CHLORIDE 1,000 ML IV STA (16:48)
[2016-11-11 17:08] LABS: BASOPHILS # (AUTO) 0.1 K/uL (0-0.2); BASOPHILS % (AUTO) 0.7 % (0.0-3.0); EOSINOPHILS # (AUTO) 0.1 K/ul (0.0-0.7); EOSINOPHILS % (AUTO) 1.6 % (0.0-7.0); HEMATOCRIT 47.9 % (42.0-52.0); HEMOGLOBIN 17.1 g/dl (14.0-18.0); IMMATURE GRANULOCYTE % (AUTO) 0.3 % (0.0-5.0); LYMPHOCYTES # (AUTO) 2.6 K/uL (0.60-3.4); LYMPHOCYTES % (AUTO) 30.4 (10.0-50.0); MEAN CORPUSCULAR HEMOGLOBIN 34.2 pg (27.0-31.0); MEAN CORPUSCULAR HGB CONC 35.7 (31.8-35.4); MEAN CORPUSCULAR VOLUME 95.8 fl (80.0-94.0); MONOCYTES # (AUTO) 0.8 K/uL (0.4-2.0); MONOCYTES % (AUTO) 9.3 (0-10); NEUTROPHILS % (AUTO) 57.7; PLATELET COUNT 267 10^3/uL (140-440); WHITE BLOOD COUNT 8.61 K/ul (4.2-10.2)
--- NOTE | 2016-11-11 17:08 | ED.PDOC ---
General ED Provider: Dr. DELIA MONDRAGON JR Chief Complaint: Abdominal Pain Stated Complaint: patient states fathers day none of his children called implies he drank to day a lot states his abdomen is as hard as a rock pain left flank and abdomen whining cries loud and continuous, drooling is alert follows commands, standing up tearful Time Seen by Physician: 17:11 Mode of Arrival: Wheelchair Information Source: Patient Exam Limitations: No limitations Primary Care Provider: [facility] Nursing and Triage Documentation Reviewed and Agree: No Review of Systems - Review Of Systems Constitutional: Reports: Other Eyes: Reports: No symptoms Ears, Nose, Mouth, Throat: Reports: No symptoms Respiratory: Reports: No symptoms Cardiac: Reports: No symptoms GI: Reports: Abdominal pain : Reports: Flank pain, Pain Musculoskeletal: Reports: Back pain Skin: Reports: No symptoms Neurological: Reports: No symptoms Endocrine: Reports: No symptoms Hematologic/Lymphatic: Reports: No symptoms All Other Systems: Other Past Medical History - Past Medical History Previously Healthy: Yes Endocrine: Reports: None Cardiovascular: Reports: [place], Hypertension Respiratory: Reports: None Hematological: Reports: None Gastrointestinal: Reports: Pancreatitis Genitourinary: Reports: None Neuro/Psych: Reports: Anxiety, Other (ALCOHOLIC) Musculoskeletal: Reports: Unknown Cancer: Reports: None Other Pertinent Past Medical History: etoh - Surgical History General Surgical History: Reports: Cholecystectomy, Orthopedic (CARPAL TUNNEL LEFT, hand surgery on left) - Family History Family History: Reports: Unknown - Social History Smoking Status: Current every day smoker, Heavy tobacco smoker Hx Substance Use: Yes Alcohol Screening: Occasionally Physical Exam - Physical Exam Appearance: Ill-appearing Ill-appearing: Mild Pain Distress: Severe Eyes: JOLANTA, EOMI, Conjunctiva clear ENT: Oropharynx normal (drooling) Neck: Supple Respiratory: Airway patent, Breath sounds clear, Breath sounds equal, Respirations nonlabored Cardiovascular: RRR, Pulses normal, No rub, No murmur GI/: Tender (firm), Bowel sounds hypoactive Musculoskeletal: Normal strength, ROM intact, No edema, No calf tenderness Skin: Warm, Dry, Normal color Neurological: Cranial nerves intact, Alert, Oriented Psychiatric: Anxious, Depressed Physician Notification - Case Discussed Physician Notified: Edvin Time of Notification: 18:53 (admit if OK with Dr Peralta) Critical Care Note - Critical Care Note Total Time (mins): 5 Course - Course Hematology/Chemistry: 11/11/16 17:05 11/11/16 17:05 Orders, Labs, Meds: Lab Review 11/11/16 11/11/16 17:05 17:50 WBC 8.61 RBC 5.00 Hgb 17.1 Hct 47.9 MCV 95.8 H MCH 34.2 H MCHC 35.7 H RDW Coeff of Reginaldo 12.7 Plt Count 267 Immature Gran % (Auto) 0.3 Neut % (Auto) 57.7 Lymph % (Auto) 30.4 [place] % (Auto) 9.3 Eos % (Auto) 1.6 Baso % (Auto) 0.7 Immature Gran # (Auto) 0.0 Neut # 5.0 Lymph # 2.6 [place] # 0.8 Eos # 0.1 Baso # 0.1 Sodium 135 L Potassium 4.4 Chloride 102 Carbon Dioxide 18 L Anion Gap 19.4 BUN 5 L Creatinine 0.73 Estimated GFR (MDRD) 115.00 BUN/Creatinine Ratio 6.84 Glucose 105 H Calcium 9.5 Total Bilirubin 0.56 AST 77 H ALT 68 Alkaline Phosphatase 130 Total Protein 8.1 Albumin 4.3 Globulin 3.8 Albumin/Globulin Ratio 1.13 Amylase 140 H Lipase 131 H Procalcitonin 0.05 Urine Color Yellow Urine Clarity Clear Urine pH 5.5 Ur Specific Lewis <=1.005 Urine Protein Negative Urine Glucose (UA) Negative Urine Ketones Negative Urine Blood Trace-intact Urine Nitrite Negative Urine Bilirubin Negative Urine Urobilinogen 0.2 Ur Leukocyte Esterase Negative Urine Microscopic RBC 0-2 Urine Microscopic WBC 0-2 Ur Squamous Epith Cells Not present Plasma/Serum Alcohol 181.1 H H. pylori IgG Antibody Negative Orders Category Date Time Status ED IV/MEDIPORT/POWERPORT .ONCE EMERGENCY 11/11/16 16:46 Active ALCOHOL LEVEL [BLOOD ALCOHOL] Stat LAB 11/11/16 17:05 Received AMYLASE Stat LAB 11/11/16 17:05 Completed CBC W/ AUTO DIFF Stat LAB 11/11/16 17:05 Completed COMPREHENSIVE METABOLIC PANEL Stat LAB 11/11/16 17:05 Completed DRUG SCREEN-INPATIENT [DRUG SCREEN, URINE, RAPID] Stat LAB 11/11/16 18:25 Uncollected H. PYLORI SCREEN Stat LAB 11/11/16 17:05 Completed LIPASE Stat LAB 11/11/16 17:05 Completed PROCALCITONIN Stat LAB 11/11/16 17:05 Completed URINALYSIS C & S IF INDICATED Stat LAB 11/11/16 17:50 Completed 0.9 % Sodium Chloride [Saline Flush] MEDS 11/11/16 16:46 Ordered 1 syr IVF PRN PRN Hydromorphone HCl [Dilaudid 1 mg/ml Syringe] MEDS 11/11/16 17:40 Discontinued 1 mg IVP ONCE STA Hydromorphone HCl [Dilaudid 1 mg/ml Syringe] MEDS 11/11/16 17:41 Discontinued 1 mg IVP ONCE STA Morphine Sulfate [Morphine 4 mg/ml Syringe] MEDS 11/11/16 16:47 Discontinued 4 mg IVP ONCE STA Ondansetron HCl/Pf [Zofran 4 mg/2 ml] MEDS 11/11/16 16:47 Discontinued 4 mg IVP ONCE STA Sodium Chloride 0.9% [Sodium Chloride] 1,000 ml MEDS 11/11/16 16:[address] ABDOMEN/PELVIS WO CONTRAST Stat RADS 11/11/16 16:46 Completed Medications Generic Name Dose Route Start Last Admin Trade Name Freq PRN Reason Stop Dose Admin Sodium Chloride 1 syr 11/11/16 16:46 11/11/16 17:00 Saline Flush IVF 1 syr PRN PRN Administration To flush IV Discontinued Medications Generic Name Dose Route Start Last Admin Trade Name Freq PRN Reason Stop Dose Admin Hydromorphone HCl 1 mg 11/11/16 17:40 Dilaudid 1 Mg/Ml Syringe IVP 11/11/16 17:41 ONCE STA Hydromorphone HCl 1 mg 11/11/16 17:41 11/11/16 17:45 Dilaudid 1 Mg/Ml Syringe IVP 11/11/16 17:42 1 mg ONCE STA Administration Sodium Chloride 1,000 mls @ 1,000 mls/hr 11/11/16 16:48 11/11/16 17:00 Sodium Chloride IV 11/11/16 17:47 1,000 mls/hr BOLUS STA Administration Morphine Sulfate 4 mg 11/11/16 16:47 11/11/16 17:04 Morphine 4 Mg/Ml Syringe IVP 11/11/16 16:48 4 mg ONCE STA Administration Ondansetron HCl 4 mg 11/11/16 16:47 11/11/16 17:02 Zofran 4 Mg/2 Ml IVP 11/11/16 16:48 4 mg ONCE STA Administration Vital Signs: Temp Pulse Resp BP Pulse Ox 11/11/16 16:41 96.9 F L 112 H 24 150/134 H 98 Departure - Departure Time of Disposition: 18:52 Disposition: ADMITTED INPATIENT Discharge Problem: Acute pancreatitis, Chronic alcoholic pancreatitis Condition: Stable Pt referred to PMD for follow-up: No (hospitalist) Allergies/Adverse Reactions: Allergies No Known Allergies Allergy (Verified 10/10/16 09:09) Home Medications: Ambulatory Orders 1 [No Reported Medications] 11/11/16
[2016-11-11 17:18] LABS: H. PYLORI ANTIBODY NEGATIVE (NEGATIVE); H.PYLORI INTERNAL QC INTERNAL QC VALID
[2016-11-11 17:29] LABS: ALBUMIN 4.3 g/dL (3.4-5.0); ALBUMIN/GLOBULIN RATIO 1.13; ANION GAP 19.4; BILIRUBIN,TOTAL 0.56 mg/dL (0.00-1.20); BUN/CREATININE RATIO 6.84; CALCIUM 9.5 mg/dL (8.2-10.2); CREATININE 0.73 mg/dL (0.60-1.10); POTASSIUM 4.4 mmol/L (3.5-5.1); TOTAL PROTEIN 8.1 g/dL (6.4-8.2)
--- NOTE | 2016-11-11 17:33 | CT ---
EXAM: CT of the abdomen pelvis without contrast History: Abdominal pain. Comparison: CT abdomen pelvis 10/10/2016 Technique: Multiplanar CT images through the abdomen pelvis were obtained without the administratio n of IV contrast Findings: Lung bases are free of consolidation. No acute osseous abnormalities. Status post cholecystectomy. Calcified granulomas within the spleen. The liver may be fatty. No ch randy in the large pancreatic pseudocyst and pancreatic calcification. There is inflammation seen ad jacent to the pancreatic head and descending duodenum. Appendix is normal. Atherosclerotic vascular calcifications. No renal stones and no hydronephrosis. No bladder wall thickening. Colonic diver ticulosis. No free air. Mildly dilated fluid-filled loops of small bowel. Bladder is low lying wi thin the pelvis. Prostate is enlarged. The upper abdominal collateral vessels again seen probably r elated to chronic splenic vein thrombosis. Impression: 1. Acute on chronic pancreatitis. 2. No change in the large pancreatic pseudocyst. 3. Mildly dilated fluid-filled loops of small bowel probably related to ileus or mild small bowel e nteritis. Partial small bowel obstruction is not excluded. Follow-up recommended. 4. Colonic diverticulosis. 5. 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 6. Enlarged prostate.
[2016-11-11] MEDS ORDERED: DILAUDID 1 MG/ML SYRINGE IVP STA ×2 (17:40→17:41)
[2016-11-11 17:58] LABS: BILIRUBIN,URINE Negative (NEGATIVE); KETONES,URINE Negative (NEGATIVE); LEUKOCYTE ESTERASE ,URINE Negative (NEGATIVE); NITRITE,URINE Negative (NEGATIVE); PH,URINE 5.5 (5-9); PROTEIN,URINE Negative (NEGATIVE); URINE, BLOOD Trace-intact (NEGATIVE)
[2016-11-11 18:00] LABS: ADD URINE MICROSCOPIC YES
[2016-11-11 18:58] LABS: COCAIN SCREEN,URINE NEGATIVE (NEGATIVE)
[2016-11-11] MEDS ORDERED: ZOFRAN 4 MG/2 ML IVP PRN (18:58)
[2016-11-11] MEDS ORDERED: DILAUDID 1 MG/ML SYRINGE IVP PRN (18:58)
[2016-11-11] MEDS ORDERED: SODIUM CHLORIDE 0.9%-KCL 20 MEQ 1,000 ML IV SCH (19:00)
[2016-11-11 20:08] VITALS: BMI 21.2
[2016-11-11] MEDS ORDERED: DILAUDID 2 MG/ML SYRINGE ONE (21:36)
[2016-11-11] MEDS: DILAUDID 2 MG/ML SYRINGE IVP STA (21:41)
[2016-11-11] MEDS: SODIUM CHLORIDE 1,000 ML IV SCH (23:29)
[2016-11-12] MEDS: DILAUDID 2 MG/ML SYRINGE IVP STA (00:02)
[2016-11-12] MEDS: DILAUDID 1 MG/ML SYRINGE IVP PRN ×10 (02:26→23:42)
[2016-11-12] MEDS: SODIUM CHLORIDE 1,000 ML IV SCH ×5 (03:59→23:23)
[2016-11-12 05:09] LABS: BASOPHILS # (AUTO) 0.1 K/uL (0-0.2); BASOPHILS % (AUTO) 0.7 % (0.0-3.0); EOSINOPHILS # (AUTO) 0.2 K/ul (0.0-0.7); EOSINOPHILS % (AUTO) 2.4 % (0.0-7.0); HEMATOCRIT 43.8 % (42.0-52.0); HEMOGLOBIN 15.1 g/dl (14.0-18.0); IMMATURE GRANULOCYTE % (AUTO) 0.3 % (0.0-5.0); LYMPHOCYTES # (AUTO) 2.8 K/uL (0.60-3.4); LYMPHOCYTES % (AUTO) 39.4 (10.0-50.0); MEAN CORPUSCULAR HEMOGLOBIN 34.2 pg (27.0-31.0); MEAN CORPUSCULAR HGB CONC 34.5 (31.8-35.4); MEAN CORPUSCULAR VOLUME 99.1 fl (80.0-94.0); MONOCYTES # (AUTO) 0.8 K/uL (0.4-2.0); MONOCYTES % (AUTO) 10.6 (0-10); NEUTROPHILS # (AUTO) 3.3 K/ul (2.0-6.9); NEUTROPHILS % (AUTO) 46.6; PLATELET COUNT 197 10^3/uL (140-440); RED BLOOD COUNT 4.42 10^6/ul (4.70-6.10); WHITE BLOOD COUNT 7.16 K/ul (4.2-10.2)
[2016-11-12 05:37] LABS: ALBUMIN 3.5 g/dL (3.4-5.0); ALBUMIN/GLOBULIN RATIO 1.21; ANION GAP 14.2; BILIRUBIN,TOTAL 1.03 mg/dL (0.00-1.20); BUN/CREATININE RATIO 9.09; CALCIUM 8.8 mg/dL (8.2-10.2); CREATININE 0.66 mg/dL (0.60-1.10); POTASSIUM 4.2 mmol/L (3.5-5.1); TOTAL PROTEIN 6.4 g/dL (6.4-8.2)
[2016-11-12] MEDS ORDERED: ATIVAN PO STA (09:25)
[2016-11-12] MEDS ORDERED: ATIVAN PO SCH (12:00)
[2016-11-12] MEDS ORDERED: ATIVAN IVP PRN (13:01)
[2016-11-12] MEDS ORDERED: ATIVAN IVP STA (13:49)
--- NOTE | 2016-11-12 14:47 | PN ---
DATE OF VISIT: 11/11/16 SUBJECTIVE: 46 year old male presented to the emergency room because of abdominal pain. This patient had experiencing abdominal pain yesterday after drinking beer. He did drink more today about 11:00 when his children didn't call him on Father's Day. The patient seemed to be restless because of the pain. The patient was evaluated in the emergency room and the patient's serum amylase and lipase slightly elevated and CT scan of the abdomen and pelvis showed acute pancreatitis over chronic pancreatitis. There are no other abnormalities except for small bowel distention probably ileus. VITAL SIGNS: On presentation to the emergency room Temperature 96.9, pulse 112, respiratory rate 24, oxygen saturation 98 at room air and blood pressure 151/34. Pain described at 10 on a scale of 0 to 10. The weight in the emergency room was 150 pounds and the weight on the floor was 170. I am not certain as to what is the reason for the discrepancy. Blood pressure upon arriving at the floor was 137/84. This patient is known to have recurrent pancreatitis secondary to alcohol. He also has a pseudocyst. His PCP is Dr. Henry. I was contacted with regards to this admission since it was after 5:00pm. He is alert and oriented with alcohol smell. The patient seems to be drinking almost everyday, smaller amounts according to him. He still smokes and he is a heavy user of cigarettes. His serum Calcium is normal 9.5, AST slightly elevated at 77.MEDICATION: The patient was given 1mg of Dilaudid which is not helping the pain and it will be increased to 2mg now and then 1mg Q 1 hour PRN. LUNGS: Breath sounds are heard in both sides, slightly diminished but no rales HEARTS: Audible and regular with good tones ABDOMEN: Tender with muscular guarding in the upper abdomen more than the lower. Bowel sounds are present. LOWER EXTREMITIES: No significant edema ASSESSMENT: 1. Acute pancreatitis superimposed then the chronic 2. Hypertension 3. History of myocardial infarction 4. History of carpal tunnel, left 5. History of Cholecystectomy 6. Surgery to left hand probably from carpal tunnel PROGNOSIS: Guarded MTDD
[2016-11-12] MEDS: ATIVAN IVP SCH (18:17)
[2016-11-13] MEDS: ATIVAN IVP SCH ×5 (00:44→23:50)
[2016-11-13] MEDS: DILAUDID 1 MG/ML SYRINGE IVP PRN ×10 (02:53→23:51)
[2016-11-13] MEDS: SODIUM CHLORIDE 1,000 ML IV SCH ×6 (03:58→23:53)
[2016-11-13 04:42] LABS: ALBUMIN 3.4 g/dL (3.4-5.0); BILIRUBIN,DIRECT 0.58 mg/dL (0.00-0.30); BILIRUBIN,TOTAL 1.37 mg/dL (0.00-1.20); TOTAL PROTEIN 6.5 g/dL (6.4-8.2)
--- NOTE | 2016-11-13 10:09 | HP ---
CHIEF COMPLAINT: Abdominal pain. SOURCE OF HISTORY: Patient, plus the emergency room triage notes and ER. HISTORY OF PRESENT ILLNESS: 46 year old male is known to have recurrent pancreatitis alcohol induced and he presented to the emergency room because of abdominal pain, which is severe. The patient had been drinking, although not as much and did experience pain since the day before. The patient drank more at about 11 o'clock 11/11/16, since his children did not call him on Father's Day. He presented to the emergency room and showed marked tenderness in the upper abdomen with severe pain and elevated serum Amylase and Lipase. CT scan showed acute pancreatitis superimposed and a chronic one. The patient was given Morphine at the emergency room and Zofran. The patient was then admitted with a diagnosis of chronic pancreatitis with acute exacerbation, alcohol induced. The patient was admitted 09/15/2016 at [facility] because of abdominal pain and again pancreatitis secondary to alcohol. He claimed then at that time that he was dry for two months. He drank the day before because of his daughter's birthday. This patient had several admissions to this facility because of pancreatitis, again alcohol induced. PAST PERSONAL HISTORY: Chronic pancreatitis, alcohol induced Cellulitis of the left hand secondary to puncture wound. He had attempted suicide in 2011. FAMILY HISTORY: Father of myocardial infarction at home. Mother was a heavy alcoholic user, as well as father and brothers. Mother also at home and probably from myocardial infarction. His father 53 when he . Two siblings did from alcohol complications. He is the last of the five members of the family. SOCIAL HISTORY: The patient is and resides with his . He smokes cigarettes heavily and continued to drink alcoholic beverages although a lessened amount according to him. MEDICATIONS: Prior to this admission. Oxycodone/Tylenol 10/325 mg one tablet three times a day. ALLERGIES: No known drug allergies. REVIEW OF SYSTEMS: CONSTITUTIONAL: The patient had no fever, no chills. He is somewhat fatigued from the pain. BACK GRINDER: No headaches, no seizure activities or seizure disorders in the past or recent. VISUAL: Denies any double vision, blurred vision or transient loss of vision. AUDITORY: Hearing is adequate. He denies any tinnitus, pain or drainage. RESPIRATORY: The patient does have cough, but nonproductive. The patient is a heavy smoker. CARDIOVASCULAR: The patient denies any chest pain or chest tightness. GASTROINTESTINAL: The patient is complaining of severe pain, mostly in the upper abdomen with marked tenderness. The patient is restless because of the severity of the pain. He has some nausea, but no vomiting. GENITOURINARY: Denies any pain or frequency of urination. MUSCULOSKELETAL: Negative, except for the guarding in the abdomen. INTEGUMENT: No rash, pruritus or petechia. ENDOCRINE: Negative. HEMATOLOGIC: Negative. PSYCHIATRIC: Affect is okay. PHYSICAL EXAMINATION: GENERAL: We have a 46 year old male admitted to the hospital via the emergency room because of abdominal pain secondary to acute pancreatitis superimposed and a chronic one. VITAL SIGNS: On admission at the emergency room, temperature 96.9, pulse 112, blood pressure 151/34, the blood pressure at the floor is now 137/84. Respiratory rate 24, probably because of the pain and oxygen saturation 98 at room air. HEAD: Unremarkable. FACE: Symmetrical and equal with no facial weakness and no cyanosis. No remarkable tenderness in the frontal or maxillary sinus areas to palpation under pressure. EYES: Pupils equal/reactive to light. Conjunctivae not pale. Sclerae not icteric. MOUTH: Unremarkable. THROAT: No inflammation, tumors or exudate. NECK: No masses. No bruit. No tenderness. No rigidity. CHEST: Symmetrical and equal with good expansion. LUNGS: Breath sounds are heard in both sides, diminished. No rales or wheezing. HEART: Audible and regular with good tones. Slightly tachycardic. No murmurs. ABDOMEN: Markedly tender with voluntary muscular guarding. The bowel sounds are present. EXTERNAL GENITALIA: Not examined. RECTAL: Not performed. LOWER EXTREMITIES: Essentially symmetrical and equal with no significant edema. Pedal pulses are present. UPPER EXTREMITIES: Symmetrical and equal. ASSESSMENT: 1. ABDOMINAL PAIN, SECONDARY TO ACUTE PANCREATITIS SUPERIMPOSED ON CHRONIC 2. PSEUDOCYST OF THE PANCREASE 3. CHRONIC ALCOHOL USE AND ABUSE, PERSISTENT 4. CHRONIC TOBACCO USE AND ABUSE, PERSISTENT 5. HISTORY OF PREVIOUS CHOLECYSTECTOMY 6. HISTORY OF CHRONIC LUMBAR PAIN 7. HISTORY OF FRACTURE OF THE 11TH RIB, POSTERIOR 8. HISTORY OF T9 COMPRESSION FRACTURE PROGNOSIS: Guarded. If this patient does not stop his habit that it eventually would probably cause his demise. He told me that he had signed for an application for [facility] in [place], [place]. I do believe it is a rehabilitation facility. [facility]
[2016-11-14] MEDS: DILAUDID 1 MG/ML SYRINGE IVP PRN ×7 (02:28→22:03)
[2016-11-14] MEDS: SODIUM CHLORIDE 1,000 ML IV SCH ×4 (04:46→20:56)
[2016-11-14] MEDS: ATIVAN IVP SCH (05:03)
[2016-11-14 05:10] LABS: AMYLASE 100 U/L (25-115); LIPASE 35 U/L (8-78)
[2016-11-14] MEDS ORDERED: ATIVAN PO PRN (09:57)
[2016-11-14 10:11] LABS: BASOPHILS % (AUTO) 0.6 % (0.0-3.0); EOSINOPHILS # (AUTO) 0.4 K/ul (0.0-0.7); EOSINOPHILS % (AUTO) 5.9 % (0.0-7.0); HEMATOCRIT 41.5 % (42.0-52.0); HEMOGLOBIN 14.5 g/dl (14.0-18.0); IMMATURE GRANULOCYTE % (AUTO) 0.2 % (0.0-5.0); LYMPHOCYTES # (AUTO) 1.7 K/uL (0.60-3.4); LYMPHOCYTES % (AUTO) 26.5 (10.0-50.0); MEAN CORPUSCULAR HEMOGLOBIN 34.2 pg (27.0-31.0); MEAN CORPUSCULAR HGB CONC 34.9 (31.8-35.4); MEAN CORPUSCULAR VOLUME 97.9 fl (80.0-94.0); MONOCYTES # (AUTO) 0.7 K/uL (0.4-2.0); MONOCYTES % (AUTO) 11.8 (0-10); NEUTROPHILS # (AUTO) 3.5 K/ul (2.0-6.9); PLATELET COUNT 185 10^3/uL (140-440); RED BLOOD COUNT 4.24 10^6/ul (4.70-6.10); WHITE BLOOD COUNT 6.27 K/ul (4.2-10.2)
[2016-11-14 10:29] LABS: ALBUMIN 3.7 g/dL (3.4-5.0); ALBUMIN/GLOBULIN RATIO 1.12; ANION GAP 17.9; BILIRUBIN,TOTAL 1.2 mg/dL (0.00-1.20); BUN/CREATININE RATIO 8.19; CREATININE 0.61 mg/dL (0.60-1.10); POTASSIUM 3.9 mmol/L (3.5-5.1)
--- NOTE | 2016-11-14 10:29 | CT ---
Exam: CT brain without contrast Clinical indication: Confusion and hallucinations. Comparison: 11/01/2015. TECHNIQUE: Axial unenhanced CT images from the skull base through the brain were obtained. Coronal and sagital reformats were performed. Findings: There is no evidence of intra or extra-axial hemorrhage. There is no evidence of mass, infarct or midline shift. The ventricles and basilar cisterns are within normal limits. Within the visualized portion of the left maxillary sinus there is some soft tissue mucosal thickeni ng suggesting chronic sinusitis. Otherwise, the visualized paranasal sinuses and mastoid air cells are clear. The visualized bony structures are unremarkable. Impression: 1. No interval change, with no acute intracranial abnormality. 2. Findings suggest chronic left maxillary sinusitis.
[2016-11-14 10:41] LABS: PROTHROMBIN TIME 11.3 SEC (9.3-11.0)
[2016-11-14] MEDS: ATIVAN PO SCH ×2 (15:37→20:14)
[2016-11-14] MEDS: COZAAR PO SCH (20:18)
[2016-11-15] MEDS: DILAUDID 1 MG/ML SYRINGE IVP PRN ×3 (02:06→10:59)
[2016-11-15] MEDS: ATIVAN PO SCH (08:14)
[2016-11-15] MEDS: COZAAR PO SCH (08:15)
--- NOTE | 2016-11-15 09:24 | PN ---
DATE OF VISIT: 11/14/16 The patient, this afternoon at 8 o'clock, is feeling better. He did have some hallucination early this morning. We had CT scan of the head showing no remarkable abnormalities and no difference from the previous one. The patient was given a full liquid and the patient today this evening told me that as soon as he had eaten that the problem had resolved. This patient had been NPO for the last three days. His IV also did not have any Dextrose. His blood sugar was 87. He again mentioned that after he had eaten that the problem had resolved. The patient does not have as much tremors now as he had yesterday. His pain medication is decreased since he does not have as much pain as he did and also the Ativan was decreased since he had been without any alcohol for the last several days now. The tenderness in the abdomen is less. The serum Amylase and Lipase has now returned to normal. This patient will be given a regular diet tomorrow. I told him that he most likely will be discharged tomorrow and I again advised him and admonished about alcohol ingestion. I told him that from my standpoint he should never drink a drop of alcohol. NICKI
[2016-11-15 10:25] VITALS: BP 116/71; TEMP 98
--- NOTE | 2016-11-19 14:05 | DS ---
PATIENT IDENTIFICATION: 46 year old male is known to have had pancreatitis in the past secondary to alcohol was admitted to the hospital because of pain that was severe. This patient had returned to drinking. He had drank more at 11 0'clock on the day of admission because he felt ignored during Father's Day since his children did not call him and wish him a Happy Father's Day. HOSPITAL COURSE: The patient had a marked tenderness in the upper abdomen mostly on the epigastric area. Bowel sounds were active. LUNGS: Breath sounds were diminished on both sides, but no rales or wheezing. HEART: Audible and regular with good tones and slightly tachycardic initially, but no murmurs. LOWER EXTREMITIES: He had no tenderness in the calf muscles. The patient was given IV fluids consisting of sodium chloride 0.9%. The serum amylase and lipase were slightly elevated. A CT scan of the abdomen does indicate acute pancreatitis superimposed on a chronic. The patient was given Morphine initially and this was changed to Dilaudid. The Dilaudid was given at 2 mg initially and then 1 mg every two hours prn. Ativan 1 mg IV was given scheduled every six hours. The patient's temperature remained normal throughout his hospital stay and his blood pressure was fluctuating, but not significant. Most of the blood pressures were normal. The pulse initially was slightly elevated at 112, but had returned towards normal. The patient's pain had gradually reduced and the serum amylase has returned to normal and lipase. I had discussion and repeated discussion with the patient with regards to his pancreatitis and drinking. I did tell him that anytime you drink that you would have a recurrence of the problem and the patient does know that, since it had happened several times in the past. He promised that he will not drink. I did tell him that the alcohol does not only give him pancreatitis, but it could have other effects, such as to the brain, killing brain cells and maybe early psychosis or dementia. Alcohol sometimes can give you neuropathy of the nerves because of the B complex vitamins, as well as heart problems. The patient at the time of discharge was alert, responsive oriented times four, not dyspneic, nor tachypneic. When I walk into the room, the patient was looking at his computer and had no tremors at all. After talking to him and he now has some tremors in his hands. LUNGS: Clear. HEART: Normal sinus rhythm. PLAN: This patient is then discharged and instructed to see Dr. Henry either Saturday or Saturday of next week and before if there are any concerns. He is to resume his medications and should go to Pain Management to get the Lortab. He had consumed the medication sooner than it was prescribed. I told him that I would give him five days of medication for Lorazepam, but this needs to be either filled by Dr. Henry or by the Pain Management. FINAL DIAGNOSES: 1. ACUTE PANCREATITIS SUPERIMPOSED ON CHRONIC 2. CHRONIC ALCOHOL USE AND ABUSE PERSISTENT 3. CHRONIC TOBACCO USE AND ABUSE PERSISTENT 4. HISTORY OF PREVIOUS CHOLECYSTECTOMY 5. HISTORY OF CHRONIC LUMBAR PAIN 6. HISTORY OF FRACTURED 11TH RIB, POSTERIOR 7. HISTORY OF T9 COMPRESSION 8. HISTORY OF PSEUDOCYST OF THE PANCREAS, PERSISTENT PROGNOSIS: Guarded. MTDD
== END 2016-11-15 12:45 | disposition home or self-care (01) | DRG 439 ==
LOC: ED 16:41 → MEDSURG B 19:04
PROVIDERS: ADMIT General Practice; ATTEND General Practice
DX: K85.20 Alcohol induced acute pancreatitis without necrosis or infection (principal); K86.3 Pseudocyst of pancreas; R44.3 Hallucinations, unspecified; K86.0 Alcohol-induced chronic pancreatitis; K11.7 Disturbances of salivary secretion; F10.20 Alcohol dependence, uncomplicated; G89.29 Other chronic pain; M54.5 Low back pain; K63.89 Other specified diseases of intestine; I10 Essential (primary) hypertension; R25.1 Tremor, unspecified; I25.2 Old myocardial infarction; F17.200 Nicotine dependence, unspecified, uncomplicated; Z81.1 Family history of alcohol abuse and dependence; Z87.311 Personal history of (healed) other pathological fracture
CPT/HCPCS: 36415; 80053; 80076; 80306; 80307; 81001; 82140; 82150; 82962; 83690; 84145; 85025; 85610; 86677; 93005; 93010; 96361; 96374; 96375; 99284

== ENCOUNTER 2016-11-21 12:28 | Outpatient (CLI) ==
[2012-11-07 13:18] VITALS: TEMP 97.6
== END 2016-11-21 12:29 | disposition home or self-care (01) ==
LOC: AMBL 12:28
PROVIDERS: ATTEND Emergency Medicine
DX: R56.9 Unspecified convulsions (principal)

== ENCOUNTER 2016-12-08 04:17 | Emergency (ER) ==
[2016-12-08 04:46] VITALS: BP 151/100; TEMP 97.5; BMI 19.6
[2016-12-08] MEDS ORDERED: SODIUM CHLORIDE 1,000 ML IV STA (04:50)
[2016-12-08] MEDS ORDERED: DILAUDID 1 MG/ML SYRINGE IVP PRN (04:51)
[2016-12-08] MEDS ORDERED: ZOFRAN 4 MG/2 ML IVP STA (04:52)
[2016-12-08 05:24] LABS: BASOPHILS # (AUTO) 0.1 K/uL (0-0.2); BASOPHILS % (AUTO) 0.5 % (0.0-3.0); EOSINOPHILS # (AUTO) 0.2 K/ul (0.0-0.7); EOSINOPHILS % (AUTO) 2.1 % (0.0-7.0); HEMATOCRIT 49.8 % (42.0-52.0); HEMOGLOBIN 17.5 g/dl (14.0-18.0); IMMATURE GRANULOCYTE % (AUTO) 0.4 % (0.0-5.0); LYMPHOCYTES # (AUTO) 2.2 K/uL (0.60-3.4); LYMPHOCYTES % (AUTO) 19.6 (10.0-50.0); MEAN CORPUSCULAR HEMOGLOBIN 33.5 pg (27.0-31.0); MEAN CORPUSCULAR HGB CONC 35.1 (31.8-35.4); MEAN CORPUSCULAR VOLUME 95.2 fl (80.0-94.0); MONOCYTES # (AUTO) 0.9 K/uL (0.4-2.0); MONOCYTES % (AUTO) 7.8 (0-10); NEUTROPHILS # (AUTO) 7.7 K/ul (2.0-6.9); NEUTROPHILS % (AUTO) 69.6; PLATELET COUNT 283 10^3/uL (140-440); RED BLOOD COUNT 5.23 10^6/ul (4.70-6.10); WHITE BLOOD COUNT 11.08 K/ul (4.2-10.2)
--- NOTE | 2016-12-08 05:37 | CT ---
EXAM: CT of the abdomen and pelvis without contrast. HISTORY: Abdominal pain. History of pancreatitis. PROCEDURE: Contiguous axial CT images of the abdomen and pelvis without contrast with coronal and s agittal reformats. FINDINGS: Comparison made with CT abdomen/pelvis of 11/11/2016. The liver is normal in appearance. The gallbladder is surgically absent. There are calcifications in the head and body of the pancreas consistent with chronic pancreatitis. There is minimal inflammatory stranding of the peripancreatic fat around the head and body of the pancreas consistent with acute pancreatitis. Redemonstrated is a pancreatic pseudocyst which is increased in size measuring 9.1 x 12.4 cm. There are calcified gr anulomas in the spleen. Redemonstrated are upper abdominal collateral vessels. The adrenal glands an d kidneys are normal in appearance. The abdominal aorta is within normal limits in diameter. The ap pendix is normal in appearance. There is diverticulosis of the colon with no evidence of diverticul itis. No free fluid or free air in the abdomen or pelvis. The bladder is minimally filled which gould its the evaluation. There are degenerative changes in the spine. Impression: Acute on chronic pancreatitis as described. Interval increase in size of pancreatic pseudocyst as described. Diverticulosis of the colon with no evidence of diverticulitis. 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 Cholecystectomy.
[2016-12-08 05:44] LABS: ALBUMIN 4.5 g/dL (3.4-5.0); ALBUMIN/GLOBULIN RATIO 1.1; ANION GAP 20.4; BILIRUBIN,TOTAL 0.6 mg/dL (0.00-1.20); BUN/CREATININE RATIO 6.32; CALCIUM 9.6 mg/dL (8.2-10.2); CREATININE 0.79 mg/dL (0.60-1.10); POTASSIUM 4.4 mmol/L (3.5-5.1); TOTAL PROTEIN 8.6 g/dL (6.4-8.2)
[2016-12-08 05:50] LABS: CREATINE KINASE 56 U/L
[2016-12-08 05:57] LABS: ERYTHROCYTE SEDIMENTATION RATE 8 mm/hr (0-15); ESR INTERNAL QC INTERNAL QC VALID
--- NOTE | 2016-12-08 06:26 | ED.PDOC ---
General ED Provider: Dr. LICHA MICHAEL-ER Chief Complaint: Abdominal Pain Stated Complaint: im hurting Time Seen by Physician: 04:45 Mode of Arrival: Walk-In Information Source: Patient Exam Limitations: No limitations Primary Care Provider: [facility] Nursing and Triage Documentation Reviewed and Agree: Yes GI Complaint Exam - Abdominal Pain Complaint/Exam Onset: Gradual Duration: several hours Symptoms Are: Still present Timing: Constant Initial Severity: Mild Current Severity: Moderate Location of Pain: Diffuse Character: Reports: Dull, Aching, Cramping Aggravating: Reports: None Alleviating: Reports: None Associated Signs and Symptoms: Denies: Diaphoresis, Fever, Cough, Chest pain, Dizziness, Back pain, Constipation, Blood in stool, Dysuria, Urinary frequency, Decreased urine output, Decreased appetite, Discharge, Nausea, Vomiting, Diarrhea, Decreased activity Related History: Reports: Similar episode Differential Diagnoses: Pancreatitis Quality Indicator For Non-Traumatic Chest Pain/Syncope: EKG Performed Review of Systems - Review Of Systems Constitutional: Reports: No symptoms Eyes: Reports: No symptoms Ears, Nose, Mouth, Throat: Reports: No symptoms Respiratory: Reports: No symptoms Cardiac: Reports: No symptoms GI: Reports: Abdominal pain, Nausea : Reports: No symptoms Musculoskeletal: Reports: No symptoms Skin: Reports: No symptoms Neurological: Reports: No symptoms Endocrine: Reports: No symptoms Hematologic/Lymphatic: Reports: No symptoms All Other Systems: Reviewed and Negative Past Medical History - Past Medical History Previously Healthy: Yes Endocrine: Reports: None Cardiovascular: Reports: [place], Hypertension Respiratory: Reports: None Hematological: Reports: None Gastrointestinal: Reports: Pancreatitis Genitourinary: Reports: None Neuro/Psych: Reports: Anxiety, Other (ALCOHOLIC) Musculoskeletal: Reports: Unknown Cancer: Reports: None Other Pertinent Past Medical History: etoh - Surgical History General Surgical History: Reports: Cholecystectomy, Orthopedic (CARPAL TUNNEL LEFT, hand surgery on left) - Family History Family History: Reports: Unknown - Social History Smoking Status: Current every day smoker, Heavy tobacco smoker Hx Substance Use: Yes Alcohol Screening: Occasionally Lives: With family - Immunizations Tetanus Shot up to Date: No (unsure) Physical Exam - Physical Exam Appearance: Well-appearing, No pain distress, Well-nourished Pain Distress: Moderate Eyes: JOLANTA, EOMI, Conjunctiva clear ENT: Ears normal, Nose normal, Oropharynx normal Neck: Supple Respiratory: Airway patent Cardiovascular: RRR GI/: Soft, Bowel sounds normal, Tender, Mass Musculoskeletal: Normal strength Skin: Warm Neurological: Sensation intact, Motor intact, Reflexes intact, Cranial nerves intact, Alert, Oriented Psychiatric: Affect appropriate Interpretation - Radiology Interpretation Radiology Interpretation By: Radiologist Radiology Results: Positive Exam Interpreted: CT Scan ("pancreatitic pseudocyst--increasing in size") Re-Evaluation - Re-Evaluation Time of Re-Evaluation: 06:27 Status: Improved Vital Signs Stable: Yes Pain Level: 2 Appearance: NAD Lungs: Clear Skin: Warm and Dry Neuro: Alert and Oriented X3 CV: RRR Critical Care Note - Critical Care Note Total Time (mins): 0 Course - Course Hematology/Chemistry: 12/08/16 05:20 12/08/16 05:20 Orders, Labs, Meds: Lab Review 12/08/16 05:20 WBC 11.08 H RBC 5.23 Hgb 17.5 Hct 49.8 MCV 95.2 H MCH 33.5 H MCHC 35.1 RDW Coeff of Reginaldo 12.5 Plt Count 283 Immature Gran % (Auto) 0.4 Neut % (Auto) 69.6 Lymph % (Auto) 19.6 [place] % (Auto) 7.8 Eos % (Auto) 2.1 Baso % (Auto) 0.5 Immature Gran # (Auto) 0.0 Neut # 7.7 H Lymph # 2.2 [place] # 0.9 Eos # 0.2 Baso # 0.1 ESR 8 Sodium 141 Potassium 4.4 Chloride 104 Carbon Dioxide 21 Anion Gap 20.4 BUN 5 L Creatinine 0.79 Estimated GFR (MDRD) 105.00 BUN/Creatinine Ratio 6.32 Glucose 125 H Calcium 9.6 Total Bilirubin 0.60 AST 22 ALT 14 Alkaline Phosphatase 111 Total Creatine Kinase 56 Troponin I < 0.0100 Total Protein 8.6 H Albumin 4.5 Globulin 4.1 Albumin/Globulin Ratio 1.10 Amylase 215 H Lipase 236 H Plasma/Serum Alcohol 23.2 Orders Category Date Time Status EKG-(ED ONLY) Stat CARDIO 12/08/16 04:50 Completed ED IV/MEDIPORT/POWERPORT .ONCE EMERGENCY 12/08/16 04:50 Active AMYLASE Stat LAB 12/08/16 05:20 Completed CBC W/ AUTO DIFF Stat LAB 12/08/16 05:20 Completed CK [CREATINE KINASE] Stat LAB 12/08/16 05:20 Completed COMPREHENSIVE METABOLIC PANEL Stat LAB 12/08/16 05:20 Completed ESR Stat LAB 12/08/16 05:20 Completed ETOH LEVEL [BLOOD ALCOHOL] Stat LAB 12/08/16 05:20 Completed LIPASE Stat LAB 12/08/16 05:20 Completed TROPONIN I Stat LAB 12/08/16 05:20 Completed URINALYSIS C & S IF INDICATED Stat LAB 12/08/16 04:49 Uncollected 0.9 % Sodium Chloride [Saline Flush] MEDS 12/08/16 04:50 Ordered 1 syr IVF PRN PRN Hydromorphone HCl [Dilaudid 1 mg/ml Syringe] MEDS 12/08/16 04:51 Ordered 1 mg IVP Q1HR PRN Ondansetron HCl/Pf [Zofran 4 mg/2 ml] MEDS 12/08/16 04:52 Discontinued 4 mg IVP ONCE STA Sodium Chloride 0.9% [Sodium Chloride] 1,000 ml MEDS 12/08/16 04:50 Active IV 100 mls/hr CT ABDOMEN/PELVIS WO CONTRAST Stat RADS 12/08/16 04:52 Completed Medications Generic Name Dose Route Start Last Admin Trade Name Freq PRN Reason Stop Dose Admin Hydromorphone HCl 1 mg 12/08/16 04:51 12/08/16 05:27 Dilaudid 1 Mg/Ml Syringe IVP 1 mg Q1HR PRN Administration Abdominal Pain Sodium Chloride 1,000 mls @ 100 mls/hr 12/08/16 04:50 12/08/16 05:27 Sodium Chloride IV 12/08/16 14:49 100 mls/hr .Q10H STA Administration Sodium Chloride 1 syr 12/08/16 04:50 12/08/16 05:27 Saline Flush IVF 1 syr PRN PRN Administration To flush IV Discontinued Medications Generic Name Dose Route Start Last Admin Trade Name Freq PRN Reason Stop Dose Admin Ondansetron HCl 4 mg 12/08/16 04:52 12/08/16 05:27 Zofran 4 Mg/2 Ml IVP 12/08/16 04:53 4 mg ONCE STA Administration Vital Signs: Temp Pulse Resp BP Pulse Ox 12/08/16 04:39 97.5 F L 96 H 24 151/100 H 99 Departure - Departure Time of Disposition: 06:27 Disposition: TSF SHORT-TRM HOSP Discharge Problem: Pancreatic pseudocyst Acute pancreatitis Qualifiers: Pancreatitis type: alcohol induced Acute pancreatitis complication: unspecified Qualifier Code: (K85.20) Alcohol induced acute pancreatitis without necrosis or infection Instructions: Pancreatitis (ED) Condition: Stable Pt referred to PMD for follow-up: No Allergies/Adverse Reactions: Allergies No Known Allergies Allergy (Verified 12/08/16 04:45) Home Medications: Ambulatory Orders Oxycodone HCl/Acetaminophen [Percocet 10-325 mg Tablet] 1 tab PO TID PRN Lorazepam 0.5 mg PO TID #15 tablet 11/15/16 Transfer Form Completed: Yes Disposition Discussed With: Patient
== END 2016-12-08 07:20 | disposition left against medical advice (07) ==
LOC: ED 04:17
DX: K85.20 Alcohol induced acute pancreatitis without necrosis or infection (principal); K86.3 Pseudocyst of pancreas; F17.210 Nicotine dependence, cigarettes, uncomplicated
CPT/HCPCS: 36415; 80053; 80307; 82150; 82550; 83690; 84484; 85025; 85651; 93005; 93010; 96361; 96374; 96375; 99284

== ENCOUNTER 2017-05-23 23:53 | Emergency (ER) ==
[2017-05-24 00:07] VITALS: BMI 18.3
[2017-05-24] MEDS ORDERED: SODIUM CHLORIDE 1,000 ML IV STA (00:14)
[2017-05-24] MEDS ORDERED: DILAUDID 1 MG/ML SYRINGE ONE ×4 (00:33→03:52)
[2017-05-24] MEDS ORDERED: ATIVAN ONE ×2 (00:34→04:06)
[2017-05-24] MEDS ORDERED: ZOFRAN 4 MG/2 ML IVP STA (00:42)
[2017-05-24] MEDS ORDERED: ZOFRAN 4 MG/2 ML ONE (00:43)
[2017-05-24] MEDS: ATIVAN IVP PRN ×2 (00:43→04:10)
[2017-05-24] MEDS: DILAUDID 1 MG/ML SYRINGE IVP PRN ×4 (00:43→04:01)
--- NOTE | 2017-05-24 01:30 | CT ---
EXAM: CT scan abdomen pelvis without contrast HISTORY: Abdominal pain, pseudocyst COMPARISON: CT scan abdomen pelvis 12/08/2016 FINDINGS: Contiguous axial images obtained from lung bases to the symphysis pubis without contrast u tilizing 3-mm collimation. Sagittal and coronal reconstructions were imaged and reviewed. Benign gr anulomatous changes of the right lung base. There has been prior cholecystectomy. They are benign gr anulomatous changes in the spleen.. The liver and adrenal glands are unremarkable.. There is a sign ificant interval increase and pseudocyst previously noted both in the pancreatic body which currently measures 4.0 x 5.0 cm.. Redemonstrated extensive pancreatic calcification within the body and neck region compatible with chronic calcific by with hours. There is minimal inflammatory change adjacent to the pancreatic head compatible with acute on chronic pancreatitis.. Minimal fluid is seen in the right retro mesenteric space Minimal developing hypodensity is seen in the pancreatic head region w hich may be related to developing pseudocyst The kidneys are morphologically normal. Prostate gland and bladder are unremarkable. There is no CT evidence of appendicitis. There is diverticulosis without diverticulitis. IMPRESSION: Chronic calcific pancreatitis with likely mild acute pancreatitis. Significant interval decrease in pseudocyst seen within the body of the pancreas.. Developing density in the pancreatic head which may be related to pseudocyst formation. Status post cholecystectomy.
[2017-05-24 04:11] VITALS: BP 145/95; TEMP 98.3
--- NOTE | 2017-05-24 05:10 | ED.PDOC ---
General ED Provider: Dr. LICHA MICHAEL-ER Chief Complaint: Abdominal Pain Stated Complaint: i drank some wine with dinner tonight--i think my pancreatitis is flaring up Time Seen by Physician: 05:08 Mode of Arrival: Walk-In Information Source: Patient Exam Limitations: No limitations Primary Care Provider: JINA [facility] Nursing and Triage Documentation Reviewed and Agree: Yes Reviewed sepsis parameters & appropriate labs ordered?: Yes System Inflammatory Response Syndrome: Not Applicable Sepsis Protocol: For patient's 13 years and over: Temp is 96.8 and below OR 101 and greater Pulse >90 BPM Resp >20/minute Acutely Altered Mental Status Are patient's symptoms suggestive of a new infection, such as: -Pneumonia -Skin, Soft Tissue -Endocarditis -UTI -Bone, Joint Infection -Implantable Device -Acute Abdominal Infection -Wound Infection -Meningitis -Blood Stream Catheter Infection -Unknown GI Complaint Exam - Abdominal Pain Complaint/Exam Onset: Sudden Duration: 3 hours Symptoms Are: Still present Timing: Constant Initial Severity: Mild Current Severity: Moderate Location of Pain: Discrete Radiates To: Reports: Back Character: Reports: Dull, Cramping, Colicky Aggravating: Reports: Eating Alleviating: Reports: None Associated Signs and Symptoms: Reports: Nausea Related History: Reports: Similar episode Abdominal Findings: Present: None Differential Diagnoses: Pancreatitis Quality Indicator For Non-Traumatic Chest Pain/Syncope: EKG Performed Review of Systems - Review Of Systems Constitutional: Reports: No symptoms Eyes: Reports: No symptoms Ears, Nose, Mouth, Throat: Reports: No symptoms Respiratory: Reports: No symptoms Cardiac: Reports: No symptoms GI: Reports: Abdominal pain, Nausea : Reports: No symptoms Musculoskeletal: Reports: No symptoms Skin: Reports: No symptoms Neurological: Reports: No symptoms Endocrine: Reports: No symptoms Hematologic/Lymphatic: Reports: No symptoms All Other Systems: Reviewed and Negative Past Medical History - Past Medical History Previously Healthy: Yes Endocrine: Reports: None Cardiovascular: Reports: [place], Hypertension Respiratory: Reports: None Hematological: Reports: None Gastrointestinal: Reports: Pancreatitis Genitourinary: Reports: None Neuro/Psych: Reports: Anxiety, Other (ALCOHOLIC) Musculoskeletal: Reports: Unknown Cancer: Reports: None Other Pertinent Past Medical History: etoh - Surgical History General Surgical History: Reports: Cholecystectomy, Orthopedic (CARPAL TUNNEL LEFT, hand surgery on left) - Family History Family History: Reports: Unknown - Social History Smoking Status: Current every day smoker, Heavy tobacco smoker Hx Substance Use: Yes (alcohol) Alcohol Screening: Heavy Lives: With family - Immunizations Tetanus Shot up to Date: Yes Physical Exam - Physical Exam Appearance: Well-appearing, No pain distress, Well-nourished Pain Distress: Moderate Eyes: JOLANTA, EOMI, Conjunctiva clear ENT: Ears normal, Nose normal, Oropharynx normal Respiratory: Airway patent, Breath sounds clear, Breath sounds equal, Respirations nonlabored Cardiovascular: RRR, Pulses normal, No rub, No murmur GI/: Soft, Nontender, No masses, Bowel sounds normal, No Organomegaly Musculoskeletal: Normal strength, ROM intact, No edema, No calf tenderness Skin: Warm, Dry, Normal color Neurological: Sensation intact, Motor intact, Reflexes intact, Cranial nerves intact, Alert, Oriented Psychiatric: Affect appropriate, Mood appropriate Interpretation - Radiology Interpretation Radiology Interpretation By: Radiologist Radiology Results: Positive Exam Interpreted: CT Scan Re-Evaluation - Re-Evaluation Time of Re-Evaluation: 05:10 Status: Improved Vital Signs Stable: Yes Pain Level: 2 Appearance: NAD Lungs: Clear Skin: Warm and Dry Neuro: Alert and Oriented X3 CV: RRR Critical Care Note - Critical Care Note Total Time (mins): 0 Course - Course Hematology/Chemistry: 05/24/17 00:22 05/24/17 00:22 Orders, Labs, Meds: Lab Review 05/24/17 05/24/17 05/24/17 00:22 00:22 02:25 WBC 11.66 H RBC 4.97 Hgb 16.8 Hct 47.2 MCV 95.0 H MCH 33.8 H MCHC 35.6 H RDW Coeff of Reginaldo 12.1 Plt Count 328 Immature Gran % (Auto) 0.3 Neut % (Auto) 59.2 Lymph % (Auto) 28.1 [place] % (Auto) 10.6 H Eos % (Auto) 1.5 Baso % (Auto) 0.3 Immature Gran # (Auto) 0.0 Neut # 6.9 Lymph # 3.3 [place] # 1.2 Eos # 0.2 Baso # 0.0 Sodium 138 Potassium 3.9 Chloride 103 Carbon Dioxide 28 Anion Gap 10.9 BUN 5 L Creatinine 0.57 L Estimated GFR (MDRD) 153.00 BUN/Creatinine Ratio 8.77 Glucose 136 H Calcium 9.7 Total Bilirubin 0.8 AST 19 ALT 16 Alkaline Phosphatase 91 Total Creatine Kinase 36 Troponin I < 0.0100 Total Protein 7.0 Albumin 3.4 Globulin 3.6 Albumin/Globulin Ratio 0.94 Amylase 94 Lipase 88 H Urine Color Dark Urine Clarity Clear Urine pH 6.0 Ur Specific [place] 1.015 Urine Protein Negative Urine Glucose (UA) Negative Urine Ketones Negative Urine Blood Trace-intact Urine Nitrite Negative Urine Bilirubin Negative Urine Urobilinogen 0.2 Ur Leukocyte Esterase Negative Urine Microscopic RBC 0-2 Urine Microscopic WBC 2-5 Ur Squamous Epith Cells 2-5 Urine Mucus 2+ Plasma/Serum Alcohol < 10.0 Orders Category Date Time Status EKG-(ED ONLY) Stat CARDIO 05/24/17 00:13 Completed Country Sales Manager [ED POWER SCREWDRIVER OPERATOR APPLIED] .ONCE EMERGENCY 05/24/17 00:16 Active ED IV/MEDIPORT/POWERPORT .ONCE EMERGENCY 05/24/17 00:14 Active AMYLASE Stat LAB 05/24/17 00:22 Completed BLOOD ALCOHOL Stat LAB 05/24/17 00:22 Completed CBC W/ AUTO DIFF Stat LAB 05/24/17 00:22 Completed COMPREHENSIVE METABOLIC PANEL Stat LAB 05/24/17 00:22 Completed CREATINE KINASE Stat LAB 05/24/17 00:22 Completed LIPASE Stat LAB 05/24/17 00:22 Completed TROPONIN I Stat LAB 05/24/17 00:22 Completed URINALYSIS C & S IF INDICATED Stat LAB 05/24/17 02:25 Completed 0.9 % Sodium Chloride [Saline Flush] MEDS 05/24/17 00:14 Ordered 1 syr IVF PRN PRN Hydromorphone HCl [Dilaudid 1 mg/ml Syringe] MEDS 05/24/17 00:14 Ordered 1 mg IVP Q1HR PRN Lorazepam Inj [Ativan] MEDS 05/24/17 00:15 Ordered 1 mg IVP Q2HR PRN Ondansetron HCl/Pf [Zofran 4 mg/2 ml] MEDS 05/24/17 00:43 Discontinued 4 mg .ROUTE .STK-MED ONE Ondansetron HCl/Pf [Zofran 4 mg/2 ml] MEDS 05/24/17 00:42 Discontinued 4 mg IVP ONCE STA Sodium Chloride 0.9% [Sodium Chloride] 1,000 ml MEDS 05/24/17 00:[address] ABDOMEN/PELVIS WO CONTRAST Stat RADS 05/24/17 00:16 Completed Medications Generic Name Dose Route Start Last Admin Trade Name Freq PRN Reason Stop Dose Admin Hydromorphone HCl 1 mg 05/24/17 00:14 05/24/17 04:01 Dilaudid 1 Mg/Ml Syringe IVP 1 mg Q1HR PRN Administration Abdominal Pain Lorazepam 1 mg 05/24/17 00:15 05/24/17 04:10 Ativan IVP 1 mg Q2HR PRN Administration Spasms Sodium Chloride 1 syr 05/24/17 00:14 05/24/17 04:05 Saline Flush IVF 1 syr PRN PRN Administration To flush IV Discontinued Medications Generic Name Dose Route Start Last Admin Trade Name Freq PRN Reason Stop Dose Admin Sodium Chloride 1,000 mls @ 250 mls/hr 05/24/17 00:14 05/24/17 00:43 Sodium Chloride IV 05/24/17 04:13 250 mls/hr BOLUS STA Administration Ondansetron HCl 4 mg 05/24/17 00:42 05/24/17 00:43 Zofran 4 Mg/2 Ml IVP 05/24/17 00:43 4 mg ONCE STA Administration Vital Signs: Temp Pulse Resp BP Pulse Ox 05/24/17 04:10 98.3 F 85 20 145/95 H 96 05/24/17 02:47 84 20 124/83 97 05/24/17 02:20 98.7 F 94 H 23 153/93 H 96 05/24/17 01:05 87 26 H 160/94 H 96 05/23/17 23:59 98.5 F 105 H 20 146/76 H 96 Departure - Departure Time of Disposition: 05:10 Disposition: HOME SELF-CARE Discharge Problem: Chronic pancreatitis Qualifiers: Pancreatitis type: unspecified pancreatitis type Qualified Code(s): K86.1 - Other chronic pancreatitis Instructions: Pancreatitis (ED) Condition: Good Pt referred to PMD for follow-up: Yes Additional Instructions: percocet 10mg q 4hrs prn pancreatitis#10==clear liquids for 24hrs and advance--f /u with pcp about the ct scan findings--ie pancreas Allergies/Adverse Reactions: Allergies No Known Allergies Allergy (Verified 05/24/17 02:06) Home Medications: Ambulatory Orders Oxycodone HCl/Acetaminophen [Percocet 10-325 mg Tablet] 1 tab PO TID PRN Disposition Discussed With: Patient
== END 2017-05-24 05:20 | disposition home or self-care (01) ==
LOC: ED 23:53
DX: K86.1 Other chronic pancreatitis (principal); F17.210 Nicotine dependence, cigarettes, uncomplicated
CPT/HCPCS: 36415; 80053; 80307; 81001; 82150; 82550; 83690; 84484; 85025; 93005; 93010; 96361; 96374; 96375; 96376; 99284

== ENCOUNTER 2017-06-06 09:56 | Emergency (ER) ==
[2017-06-06 10:06] VITALS: BP 118/86; TEMP 96.4; BMI 18.0
--- NOTE | 2017-06-06 10:17 | ED.PDOC ---
General ED Provider: Dr. TAMMI TIRADO Chief Complaint: Abdominal Pain Stated Complaint: Abdominal pain "the usual" per patient. Out of pain medications Time Seen by Physician: 10:16 Mode of Arrival: Walk-In Information Source: Patient Exam Limitations: No limitations Primary Care Provider: JINA PERALTA-[facility] Nursing and Triage Documentation Reviewed and Agree: Yes Reviewed sepsis parameters & appropriate labs ordered?: Yes System Inflammatory Response Syndrome: Not Applicable Sepsis Protocol: For patient's 13 years and over: Temp is 96.8 and below OR 101 and greater Pulse >90 BPM Resp >20/minute Acutely Altered Mental Status Are patient's symptoms suggestive of a new infection, such as: -Pneumonia -Skin, Soft Tissue -Endocarditis -UTI -Bone, Joint Infection -Implantable Device -Acute Abdominal Infection -Wound Infection -Meningitis -Blood Stream Catheter Infection -Unknown Review of Systems - Review Of Systems Constitutional: Reports: No symptoms GI: Reports: Abdominal pain Skin: Reports: No symptoms All Other Systems: Reviewed and Negative Past Medical History - Past Medical History Previously Healthy: Yes Endocrine: Reports: None Cardiovascular: Reports: [place], Hypertension Respiratory: Reports: None Hematological: Reports: None Gastrointestinal: Reports: Pancreatitis Genitourinary: Reports: None Neuro/Psych: Reports: Anxiety, Other (ALCOHOLIC) Musculoskeletal: Reports: Unknown Cancer: Reports: None Other Pertinent Past Medical History: etoh - Surgical History General Surgical History: Reports: Cholecystectomy, Orthopedic (CARPAL TUNNEL LEFT, hand surgery on left) - Family History Family History: Reports: Unknown - Social History Smoking Status: Current every day smoker, Heavy tobacco smoker Hx Substance Use: Yes (alcohol) Alcohol Screening: Heavy Physical Exam - Physical Exam Appearance: Well-appearing (Noted 2 X walking comfortably to bathroom) Pain Distress: Severe (per patient on intake) ENT: Oropharynx normal Neck: Supple Respiratory: Airway patent, Breath sounds clear, Breath sounds equal Cardiovascular: RRR, Pulses normal GI/: Soft (recoils from touch; however with distraction allows palpation - no rebound) Musculoskeletal: Normal strength, ROM intact Skin: Warm, Dry, Normal color Neurological: Sensation intact, Motor intact, Alert, Oriented Psychiatric: Affect appropriate (Dramatic presentation; no apparent discomfort when told CT ordered - says wants to sign out ) Critical Care Note - Critical Care Note Total Time (mins): 10 Course - Course Hematology/Chemistry: 06/06/17 10:25 06/06/17 10:25 Orders, Labs, Meds: Lab Review 06/06/17 06/06/17 10:25 10:25 WBC 8.83 RBC 4.98 Hgb 16.9 Hct 48.5 MCV 97.4 H MCH 33.9 H MCHC 34.8 RDW Coeff of Reginaldo 12.9 Plt Count 392 Immature Gran % (Auto) 0.3 Neut % (Auto) 69.5 Lymph % (Auto) 19.7 [place] % (Auto) 8.4 Eos % (Auto) 1.4 Baso % (Auto) 0.7 Immature Gran # (Auto) 0.0 Neut # 6.1 Lymph # 1.7 [place] # 0.7 Eos # 0.1 Baso # 0.1 Sodium 140 Potassium 4.4 Chloride 99 Carbon Dioxide 30 Anion Gap 15.4 BUN 4 L Creatinine 0.67 Estimated GFR (MDRD) 127.00 BUN/Creatinine Ratio 5.97 Glucose 119 H Calcium 10.5 H Total Bilirubin 0.8 AST 26 ALT 10 L Alkaline Phosphatase 101 Total Protein 8.4 H Albumin 3.7 Globulin 4.7 Albumin/Globulin Ratio 0.79 Lipase 59 Orders Category Date Time Status CBC W/ AUTO DIFF Stat LAB 06/06/17 10:25 Completed COMPREHENSIVE METABOLIC PANEL Stat LAB 06/06/17 10:25 Completed LIPASE Stat LAB 06/06/17 10:25 Completed Vital Signs: Temp Pulse Resp BP Pulse Ox 06/06/17 09:57 96.4 F L 92 H 20 118/86 98 Departure - Departure Time of Disposition: 11:17 Disposition: AMA Discharge Problem: Abdominal pain Qualifiers: Abdominal location: generalized Qualified Code(s): R10.84 - Generalized abdominal pain Instructions: Acute Abdominal Pain (ED) Condition: Stable Pt referred to PMD for follow-up: Yes (Call for appointment) IPMP verified?: No (No narcotic prescribed) Allergies/Adverse Reactions: Allergies No Known Allergies Allergy (Verified 06/06/17 10:07) Home Medications: Ambulatory Orders Oxycodone HCl/Acetaminophen [Percocet 10-325 mg Tablet] 1 tab PO TID PRN Disposition Discussed With: Patient (Advised patient all blood work normal; CT scan planned - pt advised he is always admitted - usually for 5 days)
== END 2017-06-06 11:15 | disposition left against medical advice (07) ==
LOC: ED 09:56
DX: R10.84 Generalized abdominal pain (principal); I10 Essential (primary) hypertension; F17.210 Nicotine dependence, cigarettes, uncomplicated; I25.2 Old myocardial infarction; Z87.19 Personal history of other diseases of the digestive system
CPT/HCPCS: 36415; 80053; 83690; 85025; 99284

== ENCOUNTER 2017-07-26 20:03 | Outpatient (CLI) ==
[2012-11-07 13:18] VITALS: TEMP 97.6
== END 2017-07-26 20:04 | disposition short-term general hospital (02) ==
LOC: AMBL 20:03
PROVIDERS: ATTEND Family Medicine
DX: R10.9 Unspecified abdominal pain (principal); K85.90 Acute pancreatitis without necrosis or infection, unspecified; R11.2 Nausea with vomiting, unspecified; R00.0 Tachycardia, unspecified

== ENCOUNTER 2017-07-26 20:16 | Emergency (ER) ==
[2017-07-26] MEDS ORDERED: PHENERGAN 25 MG/ML VIAL 25 MG in SODIUM CHLORIDE 50 ML IV STA (20:18)
[2017-07-26] MEDS ORDERED: ATIVAN IVP STA (20:18)
[2017-07-26] MEDS ORDERED: SODIUM CHLORIDE 1,000 ML IV STA (20:18)
[2017-07-26] MEDS ORDERED: DILAUDID 2 MG/ML SYRINGE IVP STA (20:19)
[2017-07-26 20:25] VITALS: BP 146/112; TEMP 98
[2017-07-26] MEDS ORDERED: PHENERGAN 25 MG/ML VIAL ONE (20:35)
--- NOTE | 2017-07-26 21:37 | CT ---
EXAM: CT abdomen pelvis without contrast HISTORY: Abdominal pain COMPARISON: 05/24/2017 TECHNIQUE: CT abdomen pelvis performed without intravenous contrast. Coronal and sagittal reformatt ed images obtained. FINDINGS: Lung bases clear. No free air. No acute abnormalities of the bones. Degenerative change in the spine. Heart normal in size. Evaluation organ parenchyma limited without contrast. Liver ap pears normal. Patient status post cholecystectomy. There are calcifications in the pancreatic paren chyma. There is redemonstration of a cystic lesion in the pancreatic tail measuring 2.4 x 2.2 cm, de creased. Questionable mild peripancreatic stranding. The spleen with granulomatous calcification ot herwise unremarkable. Adrenals unremarkable. Kidneys unremarkable. Bladder unremarkable. Prostate top normal in size. Aorta normal in caliber. Moderate atherosclerosis. Stomach appears normal. N o dilated loops small bowel. Scattered fluid-filled loops small bowel. Appendix appears normal. Co scout unremarkable. Upper abdominal varices. IMPRESSION: 1. Changes of chronic pancreatitis. Possible peripancreatic stranding may represent acute on chroni c pancreatitis. Recommend correlation with pancreatic enzymes. Redemonstration of pancreatic tail p seudocyst that is decreased in size, measuring up to 2.4 cm. 2. Scattered fluid-filled loops small bowel may represent mild enteritis. 3. Atherosclerosis. 4. Upper abdominal varices, could relate to a chronically thrombosed splenic vein, though this is no t evaluated on noncontrast CT.
--- NOTE | 2017-07-26 21:55 | ED.PDOC ---
General ED Provider: Dr. LICHA MICHAEL-ER Chief Complaint: Abdominal Pain Stated Complaint: im hurting--im drinking Time Seen by Physician: 20:20 Mode of Arrival: Stretcher Information Source: Patient, EMT Exam Limitations: No limitations [facility] Nursing and Triage Documentation Reviewed and Agree: Yes Reviewed sepsis parameters & appropriate labs ordered?: Yes System Inflammatory Response Syndrome: Not Applicable Sepsis Protocol: For patient's 13 years and over: Temp is 96.8 and below OR 101 and greater Pulse >90 BPM Resp >20/minute Acutely Altered Mental Status Are patient's symptoms suggestive of a new infection, such as: -Pneumonia -Skin, Soft Tissue -Endocarditis -UTI -Bone, Joint Infection -Implantable Device -Acute Abdominal Infection -Wound Infection -Meningitis -Blood Stream Catheter Infection -Unknown GI Complaint Exam - Abdominal Pain Complaint/Exam Onset: Gradual Duration: several hours Symptoms Are: Still present Timing: Constant Initial Severity: Mild Current Severity: Moderate Location of Pain: Diffuse Character: Reports: Dull Aggravating: Reports: None Alleviating: Reports: None Associated Signs and Symptoms: Reports: Decreased appetite, Nausea. Denies: Diaphoresis, Fever, Cough, Chest pain, Dizziness, Back pain, Constipation, Blood in stool, Dysuria, Urinary frequency, Decreased urine output, Discharge AAA Risk Factors: Reports: None Cardiac Risk Factors: Reports: None Surgical Obstruction Risk Factors: Reports: Colicky abdominal pain Differential Diagnoses: Constipation, Pancreatitis Quality Indicators for AMI: EKG in 10min. Quality Indicator For Non-Traumatic Chest Pain/Syncope: EKG Performed Review of Systems - Review Of Systems Constitutional: Reports: No symptoms Eyes: Reports: No symptoms Ears, Nose, Mouth, Throat: Reports: No symptoms Respiratory: Reports: No symptoms Cardiac: Reports: No symptoms GI: Reports: Abdominal pain, Nausea : Reports: No symptoms Musculoskeletal: Reports: No symptoms Skin: Reports: No symptoms Neurological: Reports: No symptoms Endocrine: Reports: No symptoms Hematologic/Lymphatic: Reports: No symptoms All Other Systems: Reviewed and Negative Past Medical History - Past Medical History Previously Healthy: Yes Endocrine: Reports: None Cardiovascular: Reports: [place], Hypertension Respiratory: Reports: None Hematological: Reports: None Gastrointestinal: Reports: Pancreatitis Genitourinary: Reports: None Neuro/Psych: Reports: Anxiety, Other (ALCOHOLIC) Musculoskeletal: Reports: Unknown Cancer: Reports: None Other Pertinent Past Medical History: etoh - Surgical History General Surgical History: Reports: Cholecystectomy, Orthopedic (CARPAL TUNNEL LEFT, hand surgery on left) - Family History Family History: Reports: Unknown - Social History Smoking Status: Current every day smoker, Heavy tobacco smoker Hx Substance Use: Yes (alcohol) Alcohol Screening: Heavy Lives: With family Physical Exam - Physical Exam Appearance: Well-appearing, No pain distress, Well-nourished Pain Distress: Moderate Eyes: JOLANTA, EOMI, Conjunctiva clear ENT: Ears normal, Nose normal, Oropharynx normal Neck: Supple Respiratory: Airway patent Cardiovascular: RRR, Pulses normal, No rub, No murmur GI/: Soft, Nontender, No masses, Bowel sounds normal, No Organomegaly Musculoskeletal: Normal strength, ROM intact, No edema, No calf tenderness Skin: Warm, Dry, Normal color Neurological: Sensation intact, Motor intact, Reflexes intact, Cranial nerves intact, Alert, Oriented Psychiatric: Affect appropriate, Mood appropriate, Anxious Interpretation - Radiology Interpretation Radiology Interpretation By: Radiologist Radiology Results: Positive Exam Interpreted: CT Scan - EKG Interpretation Time of EKG #1: 21:58 Rate: Normal Rhythm: Sinus Ectopy: None [place]: NL ST Segment: Normal Interpretation: nsr Re-Evaluation - Re-Evaluation Time of Re-Evaluation: 21:55 Status: Improved Vital Signs Stable: Yes Pain Level: 3 Appearance: NAD Lungs: Clear Skin: Warm and Dry Neuro: Alert and Oriented X3 CV: RRR Critical Care Note - Critical Care Note Total Time (mins): 0 Course - Course Hematology/Chemistry: 07/26/17 20:30 07/26/17 20:30 Orders, Labs, Meds: Lab Review 07/26/17 07/26/17 07/26/17 20:30 20:30 20:30 WBC 10.92 H RBC 4.59 L Hgb 16.1 Hct 46.1 MCV 100.4 H MCH 35.1 H MCHC 34.9 RDW Coeff of Reginaldo 12.9 Plt Count 177 Immature Gran % (Auto) 0.4 Neut % (Auto) 63.1 Lymph % (Auto) 26.6 [place] % (Auto) 7.7 Eos % (Auto) 1.8 Baso % (Auto) 0.4 Immature Gran # (Auto) 0.0 Neut # (Auto) 6.9 Lymph # (Auto) 2.9 [place] # (Auto) 0.8 Eos # (Auto) 0.2 Baso # (Auto) 0.0 Sodium 136 Potassium 4.3 Chloride 98 Carbon Dioxide 23 Anion Gap 19.3 BUN 3 L Creatinine 0.71 Estimated GFR (MDRD) 119.00 BUN/Creatinine Ratio 4.22 Glucose 168 H Calcium 9.7 Total Bilirubin 0.6 AST 28 ALT 18 Alkaline Phosphatase 103 Total Creatine Kinase 63 Troponin I 0.0180 Total Protein 8.6 H Albumin 3.9 Globulin 4.7 Albumin/Globulin Ratio 0.83 Amylase 92 Lipase 93 H Plasma/Serum Alcohol 07/26/17 20:30 WBC RBC Hgb Hct MCV MCH MCHC RDW Coeff of Reginaldo Plt Count Immature Gran % (Auto) Neut % (Auto) Lymph % (Auto) [place] % (Auto) Eos % (Auto) Baso % (Auto) Immature Gran # (Auto) Neut # (Auto) Lymph # (Auto) [place] # (Auto) Eos # (Auto) Baso # (Auto) Sodium Potassium Chloride Carbon Dioxide Anion Gap BUN Creatinine Estimated GFR (MDRD) BUN/Creatinine Ratio Glucose Calcium Total Bilirubin AST ALT Alkaline Phosphatase Total Creatine Kinase Troponin I Total Protein Albumin Globulin Albumin/Globulin Ratio Amylase Lipase Plasma/Serum Alcohol 123.5 H Orders Category Date Time Status EKG-(ED ONLY) Stat CARDIO 07/26/17 20:17 Ordered ED IV/MEDIPORT/POWERPORT .ONCE EMERGENCY 07/26/17 20:18 Active AMYLASE Stat LAB 07/26/17 20:30 Completed CBC W/ AUTO DIFF Stat LAB 07/26/17 20:30 Completed COMPREHENSIVE METABOLIC PANEL Stat LAB 07/26/17 20:30 Completed CREATINE KINASE Stat LAB 07/26/17 20:30 Completed ETOH LEVEL [BLOOD ALCOHOL] Stat LAB 07/26/17 20:30 Completed LIPASE Stat LAB 07/26/17 20:30 Completed TROPONIN I Stat LAB 07/26/17 20:30 Completed URINALYSIS C & S IF INDICATED Stat LAB 07/26/17 20:17 Uncollected 0.9 % Sodium Chloride [Saline Flush] MEDS 07/26/17 20:18 Ordered 1 syr IVF PRN PRN Hydromorphone HCl [Dilaudid 1 mg/ml Syringe] MEDS 07/26/17 21:57 Stat 1 mg IVP ONCE STA Hydromorphone HCl/Pf [Dilaudid 2 mg/ml Syringe] MEDS 07/26/17 20:19 Discontinued 2 mg IVP ONCE STA Lorazepam Inj [Ativan] MEDS 07/26/17 20:18 Discontinued 1 mg IVP ONCE STA Oxycodone-Acetaminophen 10-325 [Percocet 10-325] MEDS 07/26/17 21:57 Stat 1 tab PO ONCE STA Oxycodone-Acetaminophen 10-325 [Percocet 10-325] MEDS 07/26/17 21:57 Stat 1 tab PO ONCE STA Promethazine HCl [Phenergan 25 mg/ml Vial] MEDS 07/26/17 20:35 Discontinued 25 mg .ROUTE .STK-MED ONE Promethazine HCl [Phenergan 25 mg/ml Vial] 25 mg MEDS 07/26/17 20:18 Discontinued 0.9 % Sodium Chloride [Sodium Chloride] 50 ml IV ONCE Sodium Chloride 0.9% [Sodium Chloride] 1,000 ml MEDS 07/26/17 20:[address] ABDOMEN/PELVIS WO CONTRAST Stat RADS 07/26/17 20:20 Completed Medications Generic Name Dose Route Start Last Admin Trade Name Freq PRN Reason Stop Dose Admin Sodium Chloride 1 syr 07/26/17 20:18 Saline Flush IVF PRN PRN To flush IV Discontinued Medications Generic Name Dose Route Start Last Admin Trade Name Freq PRN Reason Stop Dose Admin Hydromorphone HCl 2 mg 07/26/17 20:19 07/26/17 20:46 Dilaudid 2 Mg/Ml Syringe IVP 07/26/17 20:20 2 mg ONCE STA Administration Promethazine HCl 25 mg/ Sodium 51 mls @ 75 mls/hr 07/26/17 20:18 07/26/17 20: 56 Chloride IV 07/26/17 20:58 75 mls/hr ONCE STA Administration Sodium Chloride 1,000 mls @ 1,000 mls/hr 07/26/17 20:18 07/26/17 20:44 Sodium Chloride IV 07/26/17 21:17 1,000 mls/hr BOLUS STA Administration Lorazepam 1 mg 07/26/17 20:18 07/26/17 20:51 Ativan IVP 07/26/17 20:19 1 mg ONCE STA Administration Vital Signs: Temp Pulse Resp BP Pulse Ox 07/26/17 20:17 98 F 96 H 22 146/112 H 99 Departure - Departure Time of Disposition: 21:56 Disposition: HOME SELF-CARE Discharge Problem: Chronic pancreatitis due to acute alcohol intoxication Instructions: Pancreatitis (ED) Condition: Good Pt referred to PMD for follow-up: Yes IPMP verified?: No Additional Instructions: you must stop etoh--talk to your pain management doctor Allergies/Adverse Reactions: Allergies No Known Allergies Allergy (Verified 06/06/17 10:07) Home Medications: Ambulatory Orders Oxycodone HCl/Acetaminophen [Percocet 10-325 mg Tablet] 1 tab PO TID PRN Disposition Discussed With: Patient
[2017-07-26] MEDS ORDERED: PERCOCET 10-325 PO STA ×2 (21:57)
[2017-07-26] MEDS ORDERED: DILAUDID 1 MG/ML SYRINGE IVP STA (21:57)
== END 2017-07-26 22:31 | disposition home or self-care (01) ==
LOC: ED 20:16
DX: K86.0 Alcohol-induced chronic pancreatitis (principal); F10.129 Alcohol abuse with intoxication, unspecified; I25.2 Old myocardial infarction; I10 Essential (primary) hypertension; F17.210 Nicotine dependence, cigarettes, uncomplicated
CPT/HCPCS: 36415; 80053; 80307; 82150; 82550; 83690; 84484; 85025; 93005; 93010; 96361; 96365; 96375; 96376; 99283

== ENCOUNTER 2017-07-31 03:48 | Emergency (ER) ==
[2017-07-31 04:13] VITALS: BP 0/0; TEMP 97.4; BMI 17.4
[2017-07-31] MEDS ORDERED: ATIVAN IM STA (04:16)
[2017-07-31] MEDS ORDERED: DEMEROL 25 MG/ML VIAL IM STA (04:17)
[2017-07-31] MEDS ORDERED: ZOFRAN 4 MG/2 ML IM STA (04:17)
--- NOTE | 2017-07-31 04:23 | ED.PDOC ---
General ED Provider: Dr. JINA PERALTA Chief Complaint: Shortness of Air Stated Complaint: Came for the shortness of breath, started eary in the morning , shaking all over, last drink 2 days ago. hurting all over Time Seen by Physician: 04:20 Mode of Arrival: Walk-In Information Source: Patient Primary Care Provider: JINA PERALTA-[facility] Nursing and Triage Documentation Reviewed and Agree: Yes Reviewed sepsis parameters & appropriate labs ordered?: No System Inflammatory Response Syndrome: Not Applicable Sepsis Protocol: For patient's 13 years and over: Temp is 96.8 and below OR 101 and greater Pulse >90 BPM Resp >20/minute Acutely Altered Mental Status Are patient's symptoms suggestive of a new infection, such as: -Pneumonia -Skin, Soft Tissue -Endocarditis -UTI -Bone, Joint Infection -Implantable Device -Acute Abdominal Infection -Wound Infection -Meningitis -Blood Stream Catheter Infection -Unknown Respiratory Complaint Exam - Shortness of Air Complaint/Exam Symptoms Are: Still present Timing: Constant Initial Severity: Mild Current Severity: Mild Character: Reports: Dyspnea at rest Aggravating: Reports: None Alleviating: Reports: None Associated Signs and Symptoms: Reports: Rapid breathing. Denies: Cough, Wheezing, Chest pain with cough, Chest pain, Fever, Chills, Diaphoresis, Nasal congestion, Dizziness, Calf pain, Calf swelling, Edema, Labored breathing, Decreased intake History of Healthcare-Acquired Pneumonia: No Pulmonary Embolism Risk Factors: Reports: None Cardiac Risk Factors: Reports: None Pseudomonas Risk Factors: Reports: None Tuberculosis Risk Factors: Reports: None Home Oxygen Use: No Recent Stress Test: No Recent Echo/LV Function: No Respiratory Distress: None Stridor Present: No Tracheal Deviation: No Subcutaneous Emphysema: No Accessory Muscle Use: No Diminished Breath Sounds: No Prolonged Expiratory Phase: No Unable to Speak Full Sentences: No Fatigue: No Leg Swelling: No Yarelis's Sign Present: No Grunting Respirations: No Kussmaul Respirations: No Differential Diagnoses: Pneumonia, Other (with drawals) Review of Systems - Review Of Systems Constitutional: Reports: Malaise, Weakness Eyes: Reports: No symptoms Ears, Nose, Mouth, Throat: Reports: No symptoms Respiratory: Reports: No symptoms Cardiac: Reports: No symptoms GI: Reports: No symptoms : Reports: No symptoms Musculoskeletal: Reports: Muscle pain, Muscle stiffness Skin: Reports: No symptoms Neurological: Reports: No symptoms Endocrine: Reports: No symptoms Hematologic/Lymphatic: Reports: No symptoms All Other Systems: Reviewed and Negative Past Medical History - Past Medical History Previously Healthy: Yes Endocrine: Reports: None Cardiovascular: Reports: [place], Hypertension Respiratory: Reports: None Hematological: Reports: None Gastrointestinal: Reports: Pancreatitis Genitourinary: Reports: None Neuro/Psych: Reports: Anxiety, Other (ALCOHOLIC) Musculoskeletal: Reports: Unknown Cancer: Reports: None Other Pertinent Past Medical History: etoh - Surgical History General Surgical History: Reports: Cholecystectomy, Orthopedic (CARPAL TUNNEL LEFT, hand surgery on left) - Family History Family History: Reports: Unknown - Social History Smoking Status: Current every day smoker, Heavy tobacco smoker Smoking Cessation Counseling Time: > 3 min - 10 min Hx Substance Use: Yes (alcohol) Alcohol Screening: Heavy - Immunizations Tetanus Shot up to Date: Yes Physical Exam - Physical Exam Appearance: Ill-appearing, Thin Eyes: JOLANTA, EOMI, Conjunctiva clear ENT: Ears normal, Nose normal, Oropharynx normal Respiratory: Airway patent, Breath sounds clear, Breath sounds equal, Respirations nonlabored Cardiovascular: RRR, Pulses normal, No rub, No murmur GI/: Soft, Nontender, No masses, Bowel sounds normal, No Organomegaly Musculoskeletal: Normal strength, ROM intact, No edema, No calf tenderness Skin: Warm, Dry, Normal color Neurological: Sensation intact, Motor intact, Reflexes intact, Cranial nerves intact, Alert, Oriented Psychiatric: Affect appropriate, Mood appropriate Re-Evaluation - Re-Evaluation Time of Re-Evaluation: 06:25 Status: Improved Critical Care Note - Critical Care Note Total Time (mins): 30 Course - Course Hematology/Chemistry: 07/31/17 04:25 07/31/17 04:25 Orders, Labs, Meds: Lab Review 07/31/17 07/31/17 07/31/17 04:25 04:25 04:40 WBC 8.11 RBC 4.92 Hgb 17.1 Hct 50.7 MCV 103.0 H MCH 34.8 H MCHC 33.7 RDW Coeff of Reginaldo 12.8 Plt Count 236 Immature Gran % (Auto) 0.2 Neut % (Auto) 44.3 Lymph % (Auto) 37.1 [place] % (Auto) 12.0 H Eos % (Auto) 5.8 Baso % (Auto) 0.6 Immature Gran # (Auto) 0.0 Neut # (Auto) 3.6 Lymph # (Auto) 3.0 [place] # (Auto) 1.0 Eos # (Auto) 0.5 Baso # (Auto) 0.1 Sodium 139 Potassium 4.7 Chloride 102 Carbon Dioxide 19 L Anion Gap 22.7 BUN 3 L Creatinine 0.64 Estimated GFR (MDRD) 134.00 BUN/Creatinine Ratio 4.68 Glucose 107 H Calcium 10.1 Total Bilirubin 0.6 AST 23 ALT 17 Alkaline Phosphatase 111 Total Creatine Kinase 85 Troponin I 0.0160 Total Protein 8.1 Albumin 3.9 Globulin 4.2 Albumin/Globulin Ratio 0.93 Urine Color Urine Clarity Urine pH Ur Specific [place] Urine Protein Urine Glucose (UA) Urine Ketones Urine Blood Urine Nitrite Urine Bilirubin Urine Urobilinogen Ur Leukocyte Esterase Urine Microscopic RBC Urine Microscopic WBC Ur Squamous Epith Cells Urine Mucus Urine Opiates Screen Positive Ur Oxycodone Screen Negative Urine Methadone Screen Negative Ur Propoxyphene Screen Negative Ur Barbiturates Screen Negative U Tricyclic Antidepress Negative Ur Phencyclidine Scrn Negative Ur Amphetamine Screen Negative U Methamphetamines Scrn Negative U Benzodiazepines Scrn Positive Urine Cocaine Screen Negative U Cannabinoids Screen Negative Plasma/Serum Alcohol < 10.0 07/31/17 04:40 WBC RBC Hgb Hct MCV MCH MCHC RDW Coeff of Reginaldo Plt Count Immature Gran % (Auto) Neut % (Auto) Lymph % (Auto) [place] % (Auto) Eos % (Auto) Baso % (Auto) Immature Gran # (Auto) Neut # (Auto) Lymph # (Auto) [place] # (Auto) Eos # (Auto) Baso # (Auto) Sodium Potassium Chloride Carbon Dioxide Anion Gap BUN Creatinine Estimated GFR (MDRD) BUN/Creatinine Ratio Glucose Calcium Total Bilirubin AST ALT Alkaline Phosphatase Total Creatine Kinase Troponin I Total Protein Albumin Globulin Albumin/Globulin Ratio Urine Color Yellow Urine Clarity Clear Urine pH 6.0 Ur Specific [place] 1.015 Urine Protein Negative Urine Glucose (UA) Negative Urine Ketones Negative Urine Blood Trace-intact Urine Nitrite Negative Urine Bilirubin Negative Urine Urobilinogen 0.2 Ur Leukocyte Esterase Trace Urine Microscopic RBC 0-2 Urine Microscopic WBC 0-2 Ur Squamous Epith Cells 0-2 Urine Mucus Trace Urine Opiates Screen Ur Oxycodone Screen Urine Methadone Screen Ur Propoxyphene Screen Ur Barbiturates Screen U Tricyclic Antidepress Ur Phencyclidine Scrn Ur Amphetamine Screen U Methamphetamines Scrn U Benzodiazepines Scrn Urine Cocaine Screen U Cannabinoids Screen Plasma/Serum Alcohol Orders Category Date Time Status ED IV/MEDIPORT/POWERPORT .ONCE EMERGENCY 07/31/17 04:16 Active BLOOD ALCOHOL Stat LAB 07/31/17 04:25 Completed CBC W/ AUTO DIFF Stat LAB 07/31/17 04:25 Completed COMPREHENSIVE METABOLIC PANEL Stat LAB 07/31/17 04:25 Completed CREATINE KINASE Stat LAB 07/31/17 04:25 Completed TROPONIN I Stat LAB 07/31/17 04:25 Completed URINALYSIS C & S IF INDICATED Stat LAB 07/31/17 04:40 Completed URINE DRUG SCREEN (RAPID FOR ED) [DRUG SCREEN, URINE, LAB 07/31/17 04:40 Completed RAPID] Stat 0.9 % Sodium Chloride [Saline Flush] MEDS 07/31/17 04:16 Ordered 1 syr IVF PRN PRN Lorazepam Inj [Ativan] MEDS 07/31/17 04:16 Discontinued 2 mg IM ONCE STA Meperidine HCl/Pf [Demerol 25 mg/ml Vial] MEDS 07/31/17 04:17 Discontinued 25 mg IM ONCE STA Ondansetron HCl/Pf [Zofran 4 mg/2 ml] MEDS 07/31/17 04:17 Discontinued 4 mg IM ONCE STA Sodium Chloride 0.9% [Sodium Chloride] 1,000 ml MEDS 07/31/17 04:30 Ordered IV 50 mls/hr CHEST, 2 VIEWS PA & LAT Stat RADS 07/31/17 04:16 Completed Medications Generic Name Dose Route Start Last Admin Trade Name Freq PRN Reason Stop Dose Admin Sodium Chloride 1,000 mls @ 50 mls/hr 07/31/17 04:30 Sodium Chloride IV .Q20H MARA Sodium Chloride 1 syr 07/31/17 04:16 Saline Flush IVF PRN PRN To flush IV Discontinued Medications Generic Name Dose Route Start Last Admin Trade Name Freq PRN Reason Stop Dose Admin Lorazepam 2 mg 07/31/17 04:16 07/31/17 04:27 Ativan IM 07/31/17 04:17 2 mg ONCE STA Administration Meperidine HCl 25 mg 07/31/17 04:17 07/31/17 04:29 Demerol 25 Mg/Ml Vial IM 07/31/17 04:18 25 mg ONCE STA Administration Ondansetron HCl 4 mg 07/31/17 04:17 07/31/17 04:29 Zofran 4 Mg/2 Ml IM 07/31/17 04:18 4 mg ONCE STA Administration Vital Signs: Temp Pulse Resp BP Pulse Ox 07/31/17 03:49 97.4 F L 93 H 28 H 0/0 L 95 Departure - Departure Time of Disposition: 06:25 Disposition: HOME SELF-CARE Discharge Problem: Panic attack Instructions: Panic Attack (ED) Condition: Stable Pt referred to PMD for follow-up: Yes IPMP verified?: No Additional Instructions: f/u RHC Increase hydration Allergies/Adverse Reactions: Allergies No Known Allergies Allergy (Verified 07/31/17 04:13) Home Medications: Ambulatory Orders Oxycodone HCl/Acetaminophen [Percocet 10-325 mg Tablet] 1 tab PO TID PRN Disposition Discussed With: Patient
[2017-07-31] MEDS ORDERED: SODIUM CHLORIDE 1,000 ML IV SCH (04:30)
--- NOTE | 2017-07-31 05:02 | DI ---
Exam: Chest two-view History: Shortness of breath FINDINGS: The cardiomediastinal contours are normal. The pulmonary vasculature is normal. The lung s are hyperexpanded. No infiltrative opacities. Right upper lung scarring. No acute chest wall abn ormality. Impression: 1. Chronic obstructive pulmonary disease. No acute abnormalities are seen.
== END 2017-07-31 06:40 | disposition home or self-care (01) ==
LOC: ED 03:48
DX: F41.0 Panic disorder [episodic paroxysmal anxiety] (principal); F17.210 Nicotine dependence, cigarettes, uncomplicated
CPT/HCPCS: 36415; 80053; 80306; 80307; 81001; 82550; 84484; 85025; 96374; 96375; 99283

== ENCOUNTER 2017-08-12 17:29 | Outpatient (CLI) ==
[2012-11-07 13:18] VITALS: TEMP 97.6
== END 2017-08-12 17:30 | disposition short-term general hospital (02) ==
LOC: AMBL 17:29
PROVIDERS: ATTEND Family Medicine
DX: S61.512A Laceration without foreign body of left wrist, initial encounter (principal); S61.511A Laceration without foreign body of right wrist, initial encounter; X78.1XXA Intentional self-harm by knife, initial encounter; S00.01XA Abrasion of scalp, initial encounter; W19.XXXA Unspecified fall, initial encounter; Y35.893A Legal intervention involving other specified means, suspect injured, initial encounter; M54.2 Cervicalgia; M54.9 Dorsalgia, unspecified

== ENCOUNTER 2017-09-02 10:41 | Outpatient (CLI) ==
[2012-11-07 13:18] VITALS: TEMP 97.6
[2017-09-02 18:00] VITALS: BMI 19.3
== END 2017-09-02 10:42 | disposition critical access hospital (66) ==
LOC: AMBL 10:41
PROVIDERS: ATTEND Internal Medicine
DX: F41.0 Panic disorder [episodic paroxysmal anxiety] (principal); M54.2 Cervicalgia; M54.9 Dorsalgia, unspecified; Z98.890 Other specified postprocedural states

== ENCOUNTER 2017-09-02 10:49 | Emergency (ER) | payer OTHER ==
[2017-09-02 11:00] VITALS: BP 130/90; TEMP 97.3; BMI 19.3
[2017-09-02] MEDS ORDERED: DILAUDID 1 MG/ML SYRINGE IM STA (11:23)
[2017-09-02] MEDS ORDERED: DILAUDID 1 MG/ML SYRINGE IVP STA (11:53)
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
== END 2017-09-02 12:26 | disposition home or self-care (01) ==
LOC: ED 10:49
DX: F41.9 Anxiety disorder, unspecified (principal); F17.210 Nicotine dependence, cigarettes, uncomplicated; M54.2 Cervicalgia
CPT/HCPCS: 36415; 80053; 80306; 82550; 82553; 84484; 85025; 85379; 93005; 93010; 96372; 96374; 96375; 96376; 99283; 99284

== ENCOUNTER 2017-09-02 18:00 | Emergency (ER) ==
[2017-09-02 18:00] VITALS: BMI 19.3
[2017-09-02] MEDS ORDERED: VALIUM SYRINGE IM STA (18:03)
[2017-09-02 18:04] VITALS: TEMP 96.1
[2017-09-02 18:07] VITALS: BP 146/100
--- NOTE | 2017-09-02 18:22 | ED.PDOC ---
General Stated Complaint: anxiety Time Seen by Physician: 18:00 Mode of Arrival: Ambulance Information Source: Patient Exam Limitations: No limitations Seen Within Last 72 Hours for Same Complaint By: ED Nursing and Triage Documentation Reviewed and Agree: Yes (seen in am by myself post pain meds all of his anxiety resolved ) Reviewed sepsis parameters & appropriate labs ordered?: Yes System Inflammatory Response Syndrome: Not Applicable System Inflammatory Response Syndrome: Not Applicable <ALONDRA KRAFT - Last Filed: 09/02/17 18:19> <LICHA MIRANDA - Last Filed: 09/02/17 21:00> ED Provider: Dr. LICHA MIRANDA Chief Complaint: Behavioral Complaint Primary Care [facility] Sepsis Protocol: For patient's 13 years and over: Temp is 96.8 and below OR 101 and greater Pulse >90 BPM Resp >20/minute Acutely Altered Mental Status Are patient's symptoms suggestive of a new infection, such as: -Pneumonia -Skin, Soft Tissue -Endocarditis -UTI -Bone, Joint Infection -Implantable Device -Acute Abdominal Infection -Wound Infection -Meningitis -Blood Stream Catheter Infection -Unknown Psychological Complaint Exam - Psychiatric Complaint/Exam Patient Complains Of: Present: Other (anxiety sudden onset this problem has been off and on x 3 days was in the emergency room a few hours ago) Onset/Duration: today Symptoms Are: Still present Timing: Intermittent Episodes Lasting: Hours Initial Severity: Moderate Current Severity: Moderate Character: Present: Depressed, Fearful, Anxious, Angry, Frustrated Aggravating: Reports: Recent stress Associated Signs And Symptoms: Reports: Sleep disturbance, Appetite change. Denies: Hostile, Confused, Hallucinating, Paranoid behavior Related History: Denies: Suicidal thoughts, Suicidal plan, Suicidal gestures, Homicidal thoughts, Homicidal plan, Homicidal gestures, Prior attempts, Recent stressors, Drug ingestion Completed Suicide Risk Factors: Male, Patient In Custody Of Police: No Social Withdrawal Present: No Social Isolation Present: No Prior Suicide Attempt: No Injury From Prior Suicide Attempt: No Related Surgical History: Reports: None (c spine fusion post c spine fracture ) Patient Uncooperative For Exam: No Mood: Present: Anxious Appearance: Present: Clean Thought Process: Present: Logical Insight: Present: Good Memory: Intact Judgement: Normal Danger To Others: No Differential Diagnoses: Anxiety <ALONDRA KRAFT - Last Filed: 09/02/17 18:19> Review of Systems - Review Of Systems Constitutional: Reports: No symptoms Eyes: Reports: No symptoms Ears, Nose, Mouth, Throat: Reports: No symptoms Respiratory: Reports: No symptoms Cardiac: Reports: No symptoms GI: Reports: No symptoms : Reports: No symptoms Musculoskeletal: Reports: No symptoms Skin: Reports: No symptoms Neurological: Reports: Anxiety Endocrine: Reports: No symptoms Hematologic/Lymphatic: Reports: No symptoms All Other Systems: Reviewed and Negative <ALONDRA KRAFT - Last Filed: 09/02/17 18:19> Past Medical History - Past Medical History Previously Healthy: Yes Endocrine: Reports: None Cardiovascular: Reports: MA, Hypertension Respiratory: Reports: None Hematological: Reports: None Gastrointestinal: Reports: Pancreatitis Genitourinary: Reports: None Neuro/Psych: Reports: Anxiety, Other (ALCOHOLIC) Musculoskeletal: Reports: Unknown Cancer: Reports: None Other Pertinent Past Medical History: etoh - Surgical History General Surgical History: Reports: Cholecystectomy, Orthopedic (CARPAL TUNNEL LEFT, hand surgery on left) - Family History Family History: Reports: Unknown - Social History Smoking Status: Former smoker Hx Substance Use: Yes (alcohol) Alcohol Screening: None <ALONDRA KRAFT - Last Filed: 09/02/17 18:19> Physical Exam - Physical Exam Appearance: Ill-appearing Ill-appearing: Moderate Pain Distress: Moderate Eyes: JOLANTA, EOMI, Conjunctiva clear ENT: Ears normal, Nose normal, Oropharynx normal Respiratory: Airway patent, Breath sounds clear, Breath sounds equal, Respirations nonlabored Cardiovascular: RRR, Pulses normal, No rub, No murmur GI/: Soft, Nontender, No masses, Bowel sounds normal, No Organomegaly Musculoskeletal: Normal strength, ROM intact, No edema, No calf tenderness Skin: Warm, Dry, Normal color Neurological: Sensation intact, Motor intact, Reflexes intact, Cranial nerves intact, Alert, Oriented Psychiatric: Affect appropriate, Mood appropriate <ALONDRA KRAFT - Last Filed: 09/02/17 18:19> Interpretation - Radiology Interpretation Radiology Interpretation By: Radiologist Radiology Results: Negative Exam Interpreted: CT Scan <LICHA MIRANDA - Last Filed: 09/02/17 21:00> Re-Evaluation - Re-Evaluation Time of Re-Evaluation: 20:59 Status: Improved Vital Signs Stable: Yes Pain Level: 2 Appearance: NAD Lungs: Clear Skin: Warm and Dry Neuro: Alert and Oriented X3 CV: RRR <LICHA MIRANDA - Last Filed: 09/02/17 21:00> Critical Care Note - Critical Care Note Total Time (mins): 0 <ALONDRA KRAFT - Last Filed: 09/02/17 18:19> Course - Course Hematology/Chemistry: 09/02/17 18:10 <ALONDRA KRAFT - Last Filed: 09/02/17 18:19> - Course Hematology/Chemistry: 09/02/17 18:10 09/02/17 18:10 <LICHA MIRANDA - Last Filed: 09/02/17 21:00> - Course Orders, Labs, Meds: Lab Review 09/02/17 09/02/17 09/02/17 18:10 18:10 18:10 WBC 13.95 H RBC 4.79 Hgb 16.3 Hct 46.4 MCV 96.9 H MCH 34.0 H MCHC 35.1 RDW Coeff of Reginaldo 12.3 Plt Count 549 H Immature Gran % (Auto) 0.4 Neut % (Auto) 63.8 Lymph % (Auto) 23.1 [place] % (Auto) 12.3 H Eos % (Auto) 0.1 Baso % (Auto) 0.3 Immature Gran # (Auto) 0.1 Neut # (Auto) 8.9 H Lymph # (Auto) 3.2 [place] # (Auto) 1.7 Eos # (Auto) 0.0 Baso # (Auto) 0.0 D-Dimer (Manual) Sodium 138 Potassium 4.3 Chloride 98 Carbon Dioxide 23 Anion Gap 21.3 BUN 11 Creatinine 0.81 Estimated GFR (MDRD) 102.00 BUN/Creatinine Ratio 13.58 Glucose 119 H Calcium 10.3 H Total Bilirubin 0.8 AST 19 ALT 10 L Alkaline Phosphatase 170 H Total Creatine Kinase 155 CK-MB (CK-2) 1.4 CK-MB (CK-2) % 0.62252 Troponin I < 0.0100 Total Protein 8.6 H Albumin 3.8 Globulin 4.8 Albumin/Globulin Ratio 0.79 Urine Opiates Screen Ur Oxycodone Screen Urine Methadone Screen Ur Propoxyphene Screen Ur Barbiturates Screen U Tricyclic Antidepress Ur Phencyclidine Scrn Ur Amphetamine Screen U Methamphetamines Scrn U Benzodiazepines Scrn Urine Cocaine Screen U Cannabinoids Screen 09/02/17 09/02/17 18:10 18:13 WBC RBC Hgb Hct MCV MCH MCHC RDW Coeff of Reginaldo Plt Count Immature Gran % (Auto) Neut % (Auto) Lymph % (Auto) [place] % (Auto) Eos % (Auto) Baso % (Auto) Immature Gran # (Auto) Neut # (Auto) Lymph # (Auto) [place] # (Auto) Eos # (Auto) Baso # (Auto) D-Dimer (Manual) 2444.68 Sodium Potassium Chloride Carbon Dioxide Anion Gap BUN Creatinine Estimated GFR (MDRD) BUN/Creatinine Ratio Glucose Calcium Total Bilirubin AST ALT Alkaline Phosphatase Total Creatine Kinase CK-MB (CK-2) CK-MB (CK-2) % Troponin I Total Protein Albumin Globulin Albumin/Globulin Ratio Urine Opiates Screen Positive Ur Oxycodone Screen Positive Urine Methadone Screen Negative Ur Propoxyphene Screen Negative Ur Barbiturates Screen Negative U Tricyclic Antidepress Negative Ur Phencyclidine Scrn Negative Ur Amphetamine Screen Negative U Methamphetamines Scrn Negative U Benzodiazepines Scrn Positive Urine Cocaine Screen Negative U Cannabinoids Screen Negative Orders Category Date Time Status EKG-(ED ONLY) Stat CARDIO 09/02/17 18:19 Completed NPO REMINDER: IMAGING ONCE CARE 09/02/17 19:39 Completed ED IV/MEDIPORT/POWERPORT .ONCE EMERGENCY 09/02/17 19:38 Active CBC W/ AUTO DIFF Stat LAB 09/02/17 18:10 Completed COMPREHENSIVE METABOLIC PANEL Stat LAB 09/02/17 18:10 Completed CREATINE KINASE Stat LAB 09/02/17 18:10 Completed D-DIMER Stat LAB 09/02/17 18:10 Completed TROPONIN I Stat LAB 09/02/17 18:10 Completed URINE DRUG SCREEN (RAPID FOR ED) [DRUG SCREEN, URINE, LAB 09/02/17 18:13 Completed RAPID] Stat 0.9 % Sodium Chloride [Saline Flush] MEDS 09/02/17 19:38 Ordered 1 syr IVF PRN PRN Diazepam Syringe [Valium Syringe] MEDS 09/02/17 18:03 Discontinued 5 mg IM ONCE STA Hydromorphone HCl [Dilaudid 1 mg/ml Syringe] MEDS 09/02/17 18:58 Discontinued 1 mg IVP ONCE STA Hydromorphone HCl [Dilaudid 1 mg/ml Syringe] MEDS 09/02/17 20:38 Stat 1 mg IVP ONCE STA Orphenadrine Citrate [Norflex] MEDS 09/02/17 20:39 Stat 60 mg IM ONCE STA CHEST, 2 VIEWS PA & LAT Stat RADS 09/02/17 18:[address] CHEST PE PROTOCOL Stat RADS 09/02/17 19:38 Completed Medications Generic Name Dose Route Start Last Admin Trade Name Freq PRN Reason Stop Dose Admin Sodium Chloride 1 syr 09/02/17 19:38 Saline Flush IVF PRN PRN To flush IV Discontinued Medications Generic Name Dose Route Start Last Admin Trade Name Freq PRN Reason Stop Dose Admin Diazepam 5 mg 09/02/17 18:03 09/02/17 18:11 Valium Syringe IM 09/02/17 18:04 5 mg ONCE STA Administration Hydromorphone HCl 1 mg 09/02/17 18:58 09/02/17 19:07 Dilaudid 1 Mg/Ml Syringe IVP 09/02/17 18:59 1 mg ONCE STA Administration Hydromorphone HCl 1 mg 09/02/17 20:38 09/02/17 20:50 Dilaudid 1 Mg/Ml Syringe IVP 09/02/17 20:39 1 mg ONCE STA Administration Orphenadrine Citrate 60 mg 09/02/17 20:39 09/02/17 20:51 Norflex IM 09/02/17 20:40 60 mg ONCE STA Administration Vital Signs: Temp Pulse Resp BP Pulse Ox 09/02/17 18:00 96.1 F L 81 32 H 146/100 H 100 Departure - Departure Pt referred to PMD for follow-up: Yes Disposition Discussed With: Patient <ALONDRA KRAFT - Last Filed: 09/02/17 18:19> - Departure Time of Disposition: 20:59 Pt referred to PMD for follow-up: Yes IPMP verified?: No Disposition Discussed With: Patient <ALECLICHA MCCULLOUGH - Last Filed: 09/02/17 21:00> - Departure Disposition: HOME SELF-CARE Discharge Problem: Anxiety, Neck pain Instructions: Neck Pain (ED) Condition: Good Additional Instructions: f/u with pcp Allergies/Adverse Reactions: Allergies No Known Allergies Allergy (Verified 09/02/17 18:11)
[2017-09-02] MEDS ORDERED: DILAUDID 1 MG/ML SYRINGE IVP STA ×2 (18:58→20:38)
--- NOTE | 2017-09-02 20:29 | CT ---
EXAM: CT pulmonary angiogram. HISTORY: Dyspnea. Elevated D-dimer. PROCEDURE: After the intravenous injection of contrast contiguous axial CT images of the chest were obtained with multiplanar reformats. No MIP or 3-D images included. FINDINGS: Comparison made with CT chest of 07/28/2015. There is normal enhancement of the pulmonary a rteries with no evidence of pulmonary embolism. The heart is within normal limits in size. There are calcified mediastinal and hilar lymph nodes. There is no significant interval change in the cavitary lesion in the right upper lobe measuring up to 2.8 x 1.7 cm on a single axial image. There is stable scarring in the right lung. No new infiltrate or consolidation. There is a calcified granuloma in t he right lower lobe. There are degenerative and operative changes in the spine. Redemonstrated are mu ltilevel compression fractures in the thoracic spine compared with Chest x-ray of 07/31/2017. There i s an interval decrease in size of the fluid density cyst in the tail of the pancreas measuring 5.9 x 4.6 cm. There are calcifications in the pancreas consistent with chronic pancreatitis. There is a sta ble left adrenal nodule. The right adrenal gland and visualized portion of the liver are normal in a ppearance. Impression: No evidence of pulmonary embolism. Stable cavitary lesion in the right upper lobe as described. Stable right lung scarring. Chronic multilevel compression fractures in the thoracic spine. Interval decrease in size of pancreatic cyst as described. Chronic pancreatitis as described.
[2017-09-02] MEDS ORDERED: NORFLEX IM STA (20:39)
--- NOTE | 2017-09-03 07:37 | DI ---
EXAM: CHEST FRONTAL AND LATERAL VIEWS HISTORY: Cough. COMPARISON: 07/31/2017 FINDINGS: Heart size and mediastinal contour remain within normal limits. Lungs are hyperinflated. There are scattered calcifications suggesting old granulomatous disease. No acute infiltrates are s een. No vascular congestion. There is no consolidation, visible pleural fluid or pneumothorax. Stab le vertebral body compression fracture mid thoracic spine. IMPRESSION: Cannot exclude a component chronic obstructive pulmonary disease. Correlate clinically. No acute in filtrates. Stable mid thoracic spine vertebral body compression fracture.
== END 2017-09-02 21:24 | disposition home or self-care (01) ==
LOC: ED 18:00
DX: F41.9 Anxiety disorder, unspecified (principal); M54.2 Cervicalgia
CPT/HCPCS: 36415; 80053; 80306; 82550; 82553; 84484; 85025; 85379; 93005; 93010; 96372; 96375; 96376; 99284

== ENCOUNTER 2017-10-06 09:59 | Outpatient (CLI) ==
[2012-11-07 13:18] VITALS: TEMP 97.6
[2017-10-06 10:14] VITALS: BMI 17.9
== END 2017-10-06 10:00 | disposition short-term general hospital (02) ==
LOC: AMBL 09:59
PROVIDERS: ATTEND Family Medicine
DX: R10.9 Unspecified abdominal pain (principal); R11.2 Nausea with vomiting, unspecified; R19.7 Diarrhea, unspecified; M54.2 Cervicalgia; R00.0 Tachycardia, unspecified; R53.1 Weakness; K86.1 Other chronic pancreatitis; F10.10 Alcohol abuse, uncomplicated

== ENCOUNTER 2017-10-06 10:08 | Emergency (ER) | payer MEDICAID, OTHER ==
[2017-10-06] MEDS ORDERED: ZOFRAN 4 MG/2 ML IVP STA (10:11)
[2017-10-06] MEDS ORDERED: MORPHINE 4 MG/ML SYRINGE IVP STA ×2 (10:11→12:24)
[2017-10-06] MEDS ORDERED: SODIUM CHLORIDE 1,000 ML IV STA (10:11)
[2017-10-06 10:14] VITALS: BP 132/100; TEMP 96.9; BMI 17.9
--- NOTE | 2017-10-06 10:39 | CT ---
EXAM: CT scan of the abdomen and pelvis without contrast HISTORY: Abdominal pain, previous history of pancreatitis TECHNIQUE: Helical imaging of the abdomen pelvis was performed without contrast. 3 mm thin axial im ages and coronal and sagittal reconstructions were provided for interpretation. Comparison CT scan of the abdomen and pelvis dated 07/26/2017. FINDINGS: The liver, adrenal glands and kidneys appear normal. The proximal ureters are normal size . Calcifications are seen within the spleen. There is diffuse calcification again seen throughout th e body and head of the pancreas. The previously noted small collection of fluid seen along the tail of the pancreas has increased in size and now measures 3.5 cm AP, 4.6 cm transverse, 3.1 cm in height . This is compared to previous measurements of 2.4 cm transverse, 2.2 cm AP. No acute abnormalities are seen within the anterior abdominal wall. The small and large bowel loops are normal caliber. The appendix appears normal. The helical images obtained through the pelvis demonstrate a normal appearance of the rectum, urinary bladder. No retr operitoneal abnormalities are seen. There is no free air. Scattered diverticula are seen within the sigmoid colon without acute inflammation. Lung bases are clear. No lytic or blastic lesions are seen within the osseous structures. IMPRESSION: Interval increase in size of the pseudocyst seen within the tail of the pancreas. The l esion now measures up to 4.6 cm transverse compared to previous measurements of 2.4 cm transverse. Changes of chronic pancreatitis are again seen. Previous cholecystectomy. There is no bowel obstruction.
--- NOTE | 2017-10-06 11:38 | ED.PDOC ---
General ED Provider: Dr. LICHA MICHAEL-ER Chief Complaint: Abdominal Pain Stated Complaint: taina had abd pain and vomiting--i also fell and hurt my neck again Time Seen by Physician: 10:15 Mode of Arrival: Ambulance Information Source: Patient Exam Limitations: No limitations Primary Care Provider: JINA PERALTA[facility] Nursing and Triage Documentation Reviewed and Agree: Yes Reviewed sepsis parameters & appropriate labs ordered?: Yes System Inflammatory Response Syndrome: Not Applicable Sepsis Protocol: For patient's 13 years and over: Temp is 96.8 and below OR 101 and greater Pulse >90 BPM Resp >20/minute Acutely Altered Mental Status Are patient's symptoms suggestive of a new infection, such as: -Pneumonia -Skin, Soft Tissue -Endocarditis -UTI -Bone, Joint Infection -Implantable Device -Acute Abdominal Infection -Wound Infection -Meningitis -Blood Stream Catheter Infection -Unknown GI Complaint Exam - Vomiting/Diarrhea Complaint/Exam Onset/Duration: this am Symptoms Are: Still present Initial Severity: Mild Current Severity: Mild Character of Vomiting: Reports: Non-bilious Character of Diarrhea: Reports: Watery Aggravating: Reports: None Alleviating: Reports: None Associated Signs and Symptoms: Reports: Abdominal pain, Cramping Kussmaul Respirations Present: No Differential Diagnoses: Dehydration, Viral Gastroenteritis, Bacterial Gastroenteritis, Pancreatitis Review of Systems - Review Of Systems Constitutional: Reports: No symptoms Eyes: Reports: No symptoms Ears, Nose, Mouth, Throat: Reports: No symptoms Respiratory: Reports: No symptoms Cardiac: Reports: No symptoms GI: Reports: Abdominal pain, Nausea, Vomiting : Reports: No symptoms Musculoskeletal: Reports: No symptoms Skin: Reports: No symptoms Neurological: Reports: No symptoms Endocrine: Reports: No symptoms Hematologic/Lymphatic: Reports: No symptoms All Other Systems: Reviewed and Negative Past Medical History - Past Medical History Previously Healthy: Yes Endocrine: Reports: None Cardiovascular: Reports: [place], Hypertension Respiratory: Reports: None Hematological: Reports: None Gastrointestinal: Reports: Pancreatitis Genitourinary: Reports: None Neuro/Psych: Reports: Anxiety, Other (ALCOHOLIC) Musculoskeletal: Reports: Unknown Cancer: Reports: None Other Pertinent Past Medical History: etoh - Surgical History General Surgical History: Reports: Cholecystectomy, Orthopedic (CARPAL TUNNEL LEFT, hand surgery on left) - Family History Family History: Reports: Unknown - Social History Smoking Status: Former smoker Hx Substance Use: Yes (alcohol) Alcohol Screening: None Physical Exam - Physical Exam Appearance: Well-appearing, No pain distress, Well-nourished Eyes: JOLANTA, EOMI, Conjunctiva clear ENT: Ears normal, Nose normal, Oropharynx normal Neck: Supple Respiratory: Airway patent, Breath sounds clear, Breath sounds equal, Respirations nonlabored Cardiovascular: RRR, Pulses normal, No rub, No murmur GI/: Soft Musculoskeletal: Normal strength Skin: Warm Neurological: Sensation intact, Motor intact, Reflexes intact, Cranial nerves intact, Alert, Oriented Psychiatric: Affect appropriate, Mood appropriate Interpretation - Radiology Interpretation Radiology Interpretation By: Radiologist Radiology Results: Positive Exam Interpreted: CT Scan - EKG Interpretation Time of EKG #1: 11:38 Rate: Normal Rhythm: Sinus Ectopy: None Lee: NL ST Segment: Normal Interpretation: nsr Critical Care Note - Critical Care Note Total Time (mins): 0 Course - Course Hematology/Chemistry: 10/06/17 10:28 10/06/17 10:28 Orders, Labs, Meds: Lab Review 10/06/17 10/06/17 10:28 10:28 WBC 10.74 H RBC 5.18 Hgb 17.6 Hct 50.2 MCV 96.9 H MCH 34.0 H MCHC 35.1 RDW Coeff of Reginaldo 13.2 Plt Count 324 Immature Gran % (Auto) 0.3 Neut % (Auto) 71.4 Lymph % (Auto) 18.1 [place] % (Auto) 8.5 Eos % (Auto) 1.1 Baso % (Auto) 0.6 Immature Gran # (Auto) 0.0 Neut # (Auto) 7.7 H Lymph # (Auto) 1.9 [place] # (Auto) 0.9 Eos # (Auto) 0.1 Baso # (Auto) 0.1 Sodium 139 Potassium 4.1 Chloride 100 Carbon Dioxide 25 Anion Gap 18.1 BUN 6 L Creatinine 0.62 Estimated GFR (MDRD) 139.00 BUN/Creatinine Ratio 9.67 Glucose 110 H Calcium 10.2 Total Bilirubin 1.2 AST 21 ALT 14 Alkaline Phosphatase 130 Total Creatine Kinase 86 Troponin I < 0.0100 Total Protein 8.4 H Albumin 3.9 Globulin 4.5 Albumin/Globulin Ratio 0.87 Amylase 83 Lipase 44 Plasma/Serum Alcohol < 10.0 Orders Category Date Time Status EKG-(ED ONLY) Stat CARDIO 10/06/17 10:11 Completed ED IV/MEDIPORT/POWERPORT .ONCE EMERGENCY 10/06/17 10:11 Active AMYLASE Stat LAB 10/06/17 10:28 Completed BLOOD ALCOHOL Stat LAB 10/06/17 10:28 Completed CBC W/ AUTO DIFF Stat LAB 10/06/17 10:28 Completed COMPREHENSIVE METABOLIC PANEL Stat LAB 10/06/17 10:28 Completed CREATINE KINASE Stat LAB 10/06/17 10:28 Completed LIPASE Stat LAB 10/06/17 10:28 Completed TROPONIN I Stat LAB 10/06/17 10:28 Completed URINALYSIS C & S IF INDICATED Stat LAB 10/06/17 10:10 Uncollected 0.9 % Sodium Chloride [Saline Flush] MEDS 10/06/17 10:11 Active 1 syr IVF PRN PRN Morphine Sulfate [Morphine 4 mg/ml Syringe] MEDS 10/06/17 10:11 Discontinued 2 mg IVP ONCE STA Ondansetron HCl/Pf [Zofran 4 mg/2 ml] MEDS 10/06/17 10:11 Discontinued 4 mg IVP ONCE STA Sodium Chloride 0.9% [Sodium Chloride] 1,000 ml MEDS 10/06/17 10:[address] ABDOMEN/PELVIS WO CONTRAST Stat RADS 10/06/17 10:[address] CERVICAL SPINE W/O CONTRAST Stat RADS 10/06/17 11:[address] HEAD W/O CONTRAST Stat RADS 10/06/17 11:39 Completed Medications Generic Name Dose Route Start Last Admin Trade Name Freq PRN Reason Stop Dose Admin Sodium Chloride 1 syr 10/06/17 10:11 10/06/17 10:44 Saline Flush IVF 1 syr PRN PRN Administration To flush IV Discontinued Medications Generic Name Dose Route Start Last Admin Trade Name Freq PRN Reason Stop Dose Admin Sodium Chloride 1,000 mls @ 1,000 mls/hr 10/06/17 10:11 10/06/17 10:42 Sodium Chloride IV 10/06/17 11:10 1,000 mls/hr BOLUS STA Administration Morphine Sulfate 2 mg 10/06/17 10:11 10/06/17 10:43 Morphine 4 Mg/Ml Syringe IVP 10/06/17 10:12 2 mg ONCE STA Administration Ondansetron HCl 4 mg 10/06/17 10:11 10/06/17 10:42 Zofran 4 Mg/2 Ml IVP 10/06/17 10:12 4 mg ONCE STA Administration Vital Signs: Temp Pulse Resp BP Pulse Ox 10/06/17 10:09 96.9 F L 110 H 20 132/100 H 100 Departure - Departure Time of Disposition: 12:25 Disposition: HOME SELF-CARE Discharge Problem: Abdominal pain Cervical strain, acute Qualifiers: Encounter type: sequela Qualified Code(s): S16.1XXS - Strain of muscle, fascia and tendon at neck level, sequela Instructions: Pancreatitis (ED) Condition: Good Pt referred to PMD for follow-up: Yes IPMP verified?: No Additional Instructions: norco 7.5mg q 4hrs prn pain #10--clear liquids and advance--f/u with pcp Allergies/Adverse Reactions: Allergies No Known Allergies Allergy (Verified 10/06/17 10:14) Home Medications: Ambulatory Orders 1 [No Reported Medications] 10/06/17 Disposition Discussed With: Patient
--- NOTE | 2017-10-06 12:04 | CT ---
EXAM: CT scan of the head without contrast HISTORY: fall, TECHNIQUE: Helical imaging of the head was performed without contrast. 5 mm thin axial images and c oronal and sagittal images were provided for interpretation. FINDINGS: The wise-white interface appears normal. No acute hemorrhages are seen. There is no mass effect. The wise-white interface appears normal. Opacities are seen within the ethmoid air cells a nd frontal sinus. The remainder of the paranasal sinuses are clear. The mastoid air cells are clear . The calvarium and extracranial soft tissues are normal. IMPRESSION: No acute traumatic abnormalities are seen. Chronic sinusitis.
--- NOTE | 2017-10-06 12:23 | CT ---
Exam: CT scan of the cervical spine. Date: 10/06/2017. Comparison: 11/01/2015. HISTORY: Fell. TECHNIQUE: Helical scan of the cervical spine was performed. FINDINGS: No previous tubal soft tissue swelling is seen. There is a recent compression fracture thr ough the superior body of T7 resulting in mild anterior kyphotic angulation with 0.3 cm of retropulsi on of the posterior-superior corner into the neural canal. Pedicle screws and fixation rods are seen extending from C5-T2 for stabilization of the fracture. The remainder of the cervical vertebral melissa s are intact. The odontoid process is intact. Segmental analysis: C1-2: No abnormalities are seen. C2-3: No abnormalities are seen. C3-4: There is no significant impression upon the thecal sac. The left neural foramen is patent. T here is mild right neural foraminal narrowing from facet arthropathy. C4-5: There is no significant impression upon the thecal sac. The foramen are patent. There is mod erate right neural foraminal narrowing from facet arthropathy. Both pedicle screws abut the posterior margins of the pedicles and do not extend into the body. C5-6: There is no significant impression upon the thecal sac. The foramen are patent. The pedicle screws extend into the pedicles. C6-7: The pedicle screws extend into the vertebral bodies. There is mild impression upon the thecal sac as result of the slight retropulsion of the posterior vertebral body. The foramen are patent. C7-T1: The pedicle screws extend into the vertebral body. There is no significant impression upon t he thecal sac and the foramen are patent. Impression: No acute findings. A C5-T2 posterior interbody fusion is present for a recent anterior wedge compression fracture of the superior endplate of C7. As noted, the pedicle screws at C5 do not penetrate the cortex and instead abut the posterior margins of the pedicles, but the remainder of the pedicle screws appea r anchored within the pedicles. Please see the above description for the findings at all levels.
== END 2017-10-06 12:47 | disposition home or self-care (01) ==
LOC: ED 10:08
DX: R10.9 Unspecified abdominal pain (principal); R11.2 Nausea with vomiting, unspecified; S16.1XXA Strain of muscle, fascia and tendon at neck level, initial encounter; K85.90 Acute pancreatitis without necrosis or infection, unspecified; F10.20 Alcohol dependence, uncomplicated; W19.XXXA Unspecified fall, initial encounter; I10 Essential (primary) hypertension; I25.2 Old myocardial infarction
CPT/HCPCS: 36415; 80053; 80307; 82150; 82550; 83690; 84484; 85025; 93005; 93010; 96361; 96374; 96375; 96376; 99283

== ENCOUNTER 2017-10-13 03:38 | Emergency (ER) ==
[2017-10-13] MEDS ORDERED: ZOFRAN 4 MG/2 ML IVP STA (03:41)
[2017-10-13] MEDS ORDERED: LACTATED RINGERS 1,000 ML IV STA (03:41)
[2017-10-13 03:47] VITALS: BP 163/91; TEMP 97.9; BMI 19.1
[2017-10-13] MEDS ORDERED: TORADOL IVP STA (03:54)
[2017-10-13] MEDS ORDERED: STADOL IVP STA (04:46)
--- NOTE | 2017-10-13 04:46 | ED.PDOC ---
General ED Provider: Dr. WESLY SOL Chief Complaint: Abdominal Pain Stated Complaint: Patient is a 46 year old male who has a history of chronic pancreatitis who comes to [facility] ambulance with abdominal pain . He refused to go to [place] due to transportation difficulties upon discharged. Has been to multiple tertiary hospitals for possible pseudocyst drainage but each time they have not opted to do it. States he failed to make his Apt for his pain managment doctor and was fired. Time Seen by Physician: 03:40 Mode of Arrival: Ambulance Information Source: Patient Exam Limitations: No limitations [facility] and T[facility] Documentation Reviewed and Agree: Yes Reviewed sepsis parameters & appropriate labs ordered?: No System Inflammatory Response Syndrome: Not Applicable Sepsis Protocol: For patient's 13 years and over: Temp is 96.8 and below OR 101 and greater Pulse >90 BPM Resp >20/minute Acutely Altered Mental Status Are patient's symptoms suggestive of a new infection, such as: -Pneumonia -Skin, Soft Tissue -Endocarditis -UTI -Bone, Joint Infection -Implantable Device -Acute Abdominal Infection -Wound Infection -Meningitis -Blood Stream Catheter Infection -Unknown System Inflammatory Response Syndrome: Not Applicable GI Complaint Exam - Abdominal Pain Complaint/Exam Onset: Gradual Duration: yesterday Symptoms Are: Still present Timing: Constant Initial Severity: Severe Current Severity: Severe Location of Pain: Diffuse Radiates To: Reports: Back Character: Reports: Aching, Throbbing Aggravating: Reports: Food Alleviating: Reports: None Associated Signs and Symptoms: Reports: Nausea, Vomiting AAA Risk Factors: Reports: None Cardiac Risk Factors: Reports: None Testicular Torsion Risk Factors: Reports: None Surgical Obstruction Risk Factors: Reports: None Abdominal Findings: Present: Peritoneal signs Differential Diagnoses: Pancreatitis Review of Systems - Review Of Systems Constitutional: Reports: No symptoms Eyes: Reports: No symptoms Ears, Nose, Mouth, Throat: Reports: No symptoms Respiratory: Reports: No symptoms Cardiac: Reports: No symptoms GI: Reports: Abdominal pain, Nausea, Vomiting : Reports: No symptoms Musculoskeletal: Reports: No symptoms Skin: Reports: No symptoms Neurological: Reports: No symptoms Endocrine: Reports: No symptoms Hematologic/Lymphatic: Reports: No symptoms All Other Systems: Reviewed and Negative Past Medical History - Past Medical History Previously Healthy: Yes Endocrine: Reports: None Cardiovascular: Reports: [place], Hypertension Respiratory: Reports: None Hematological: Reports: None Gastrointestinal: Reports: Pancreatitis Genitourinary: Reports: None Neuro/Psych: Reports: Anxiety, Other (ALCOHOLIC) Musculoskeletal: Reports: Unknown Cancer: Reports: None Other Pertinent Past Medical History: etoh - Surgical History General Surgical History: Reports: Cholecystectomy, Orthopedic (CARPAL TUNNEL LEFT, hand surgery on left) - Family History Family History: Reports: Unknown - Social History Smoking Status: Current every day smoker, Heavy tobacco smoker Hx Substance Use: Yes (alcohol) Alcohol Screening: Occasionally - Immunizations Tetanus Shot up to Date: Yes Physical Exam - Physical Exam Appearance: Ill-appearing Ill-appearing: Mild Pain Distress: Severe Eyes: JOLANTA, EOMI, Conjunctiva clear Neck: Supple Respiratory: Airway patent, Breath sounds clear, Breath sounds equal, Respirations nonlabored Cardiovascular: RRR, Pulses normal, No rub, No murmur GI/: Soft, Tender Musculoskeletal: Normal strength, ROM intact, No edema, No calf tenderness Skin: Warm, Dry, Normal color Neurological: Alert, Oriented Psychiatric: Anxious Critical Care Note - Critical Care Note Total Time (mins): 0 Course - Course Hematology/Chemistry: 10/13/17 03:50 10/13/17 03:50 Orders, Labs, Meds: Lab Review 10/13/17 10/13/17 10/13/17 03:50 03:50 03:50 WBC 9.51 RBC 4.83 Hgb 16.4 Hct 46.4 MCV 96.1 H MCH 34.0 H MCHC 35.3 RDW Coeff of Reginaldo 13.2 Plt Count 288 Immature Gran % (Auto) 0.4 Neut % (Auto) 54.4 Lymph % (Auto) 29.2 [place] % (Auto) 12.9 H Eos % (Auto) 2.4 Baso % (Auto) 0.7 Immature Gran # (Auto) 0.0 Neut # (Auto) 5.2 Lymph # (Auto) 2.8 [place] # (Auto) 1.2 Eos # (Auto) 0.2 Baso # (Auto) 0.1 Sodium 135 L Potassium 3.9 Chloride 98 Carbon Dioxide 24 Anion Gap 16.9 BUN 4 L Creatinine 0.60 Estimated GFR (MDRD) 144.00 BUN/Creatinine Ratio 6.66 Glucose 108 H Calcium 10.0 Total Bilirubin 0.8 AST 21 ALT 15 Alkaline Phosphatase 118 Total Protein 8.0 Albumin 3.9 Globulin 4.1 Albumin/Globulin Ratio 0.95 Amylase 118 H Lipase 92 H Urine Color Urine Clarity Urine pH Ur Specific [place] Urine Protein Urine Glucose (UA) Urine Ketones Urine Blood Urine Nitrite Urine Bilirubin Urine Urobilinogen Ur Leukocyte Esterase Ur Squamous Epith Cells Urine Mucus Plasma/Serum Alcohol < 10.0 10/13/17 04:10 WBC RBC Hgb Hct MCV MCH MCHC RDW Coeff of Reginaldo Plt Count Immature Gran % (Auto) Neut % (Auto) Lymph % (Auto) [place] % (Auto) Eos % (Auto) Baso % (Auto) Immature Gran # (Auto) Neut # (Auto) Lymph # (Auto) [place] # (Auto) Eos # (Auto) Baso # (Auto) Sodium Potassium Chloride Carbon Dioxide Anion Gap BUN Creatinine Estimated GFR (MDRD) BUN/Creatinine Ratio Glucose Calcium Total Bilirubin AST ALT Alkaline Phosphatase Total Protein Albumin Globulin Albumin/Globulin Ratio Amylase Lipase Urine Color Yellow Urine Clarity Clear Urine pH 6.0 Ur Specific [place] 1.020 Urine Protein Trace Urine Glucose (UA) Negative Urine Ketones Trace Urine Blood Negative Urine Nitrite Negative Urine Bilirubin 1+ Urine Urobilinogen 0.2 Ur Leukocyte Esterase Negative Ur Squamous Epith Cells Not present Urine Mucus 2+ Plasma/Serum Alcohol Orders Category Date Time Status ED IV/MEDIPORT/POWERPORT .ONCE EMERGENCY 10/13/17 03:41 Active AMYLASE Stat LAB 10/13/17 03:50 Completed CBC W/ AUTO DIFF Stat LAB 10/13/17 03:50 Completed COMPREHENSIVE METABOLIC PANEL Stat LAB 10/13/17 03:50 Completed ETOH LEVEL [BLOOD ALCOHOL] Stat LAB 10/13/17 03:50 Completed LIPASE Stat LAB 10/13/17 03:50 Completed URINALYSIS C & S IF INDICATED Stat LAB 10/13/17 04:10 Completed 0.9 % Sodium Chloride [Saline Flush] MEDS 10/13/17 03:41 Discontinued 1 syr IVF PRN PRN Butorphanol Tartrate [Stadol] MEDS 10/13/17 04:46 Discontinued 1 mg IVP ONCE STA Ketorolac Tromethamine [Toradol] MEDS 10/13/17 03:54 Discontinued 30 mg IVP ONCE STA Ondansetron HCl/Pf [Zofran 4 mg/2 ml] MEDS 10/13/17 03:41 Discontinued 4 mg IVP ONCE STA Ringers Lactated Solution [Lactated Ringers] 1,000 ml MEDS 10/13/17 03:41 Discontinued IV BOLUS Medications Discontinued Medications Generic Name Dose Route Start Last Admin Trade Name Freq PRN Reason Stop Dose Admin Butorphanol Tartrate 1 mg 10/13/17 04:46 10/13/17 04:51 Stadol IVP 10/13/17 04:47 1 mg ONCE STA Administration Lactated Ringer's 1,000 mls @ 1,000 mls/hr 10/13/17 03:41 10/13/17 04:01 Lactated Ringers IV 10/13/17 04:40 1,000 mls/hr BOLUS STA Administration Ketorolac Tromethamine 30 mg 10/13/17 03:54 10/13/17 04:06 Toradol IVP 10/13/17 03:55 30 mg ONCE STA Administration Ondansetron HCl 4 mg 10/13/17 03:41 10/13/17 04:03 Zofran 4 Mg/2 Ml IVP 10/13/17 03:42 4 mg ONCE STA Administration Sodium Chloride 1 syr 10/13/17 03:41 10/13/17 04:01 Saline Flush IVF 1 syr PRN PRN Administration To flush IV Vital Signs: Temp Pulse Resp BP Pulse Ox 10/13/17 03:39 97.9 F 96 H 28 H 163/91 H 98 Departure - Departure Time of Disposition: 04:46 Disposition: HOME SELF-CARE Discharge Problem: Chronic abdominal pain Chronic pancreatitis Qualifiers: Pancreatitis type: unspecified pancreatitis type Qualified Code(s): K86.1 - Other chronic pancreatitis Instructions: Pancreatitis (ED) Condition: Stable Pt referred to PMD for follow-up: Yes IPMP verified?: No Additional Instructions: Follow up with Pain management in 1-2 days Take nausea medications as prescribed. Prescriptions: Ondansetron HCl [Zofran Tab] 4 mg PO Q8H PRN #14 tablet PRN Reason: Nausea / Vomiting Allergies/Adverse Reactions: Allergies No Known Allergies Allergy (Verified 10/13/17 03:45) Home Medications: Ambulatory Orders Ondansetron HCl [Zofran Tab] 4 mg PO Q8H PRN #14 tablet 10/13/17 Disposition Discussed With: Patient
== END 2017-10-13 05:31 | disposition home or self-care (01) ==
LOC: ED 03:38
DX: K86.1 Other chronic pancreatitis (principal); R10.9 Unspecified abdominal pain; G89.29 Other chronic pain; F17.210 Nicotine dependence, cigarettes, uncomplicated
CPT/HCPCS: 36415; 80053; 80307; 81001; 82150; 83690; 85025; 96374; 96375; 99283

== ENCOUNTER 2017-10-30 14:03 | Emergency (ER) ==
[2017-10-30 14:12] VITALS: BP 126/81; TEMP 98.8; BMI 19.8
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
--- NOTE | 2017-10-30 15:11 | CT ---
EXAM: CT head without contrast. HISTORY: Initial presentation for head trauma. COMPARISON: 10/06/2017. TECHNIQUE: Multiple axial images of the brain were obtained from the skull base through the vertex w ithout intravenous contrast. Multiplanar reformats were provided. FINDINGS: There is no intracranial hemorrhage or extraaxial collection. The wise-white differentiat ion is maintained without evidence for acute large vascular territory infarction. The cortical sulci and basal cisterns are well visualized. There is no hydrocephalus, mass effect, or midline shift. Moderate ethmoid and right maxillary sinus mucosal disease noted with more mild changes elsewhere. T he mastoid air cells are clear. The calvarium is intact. Since the prior study, there has been no s ignificant interval change. IMPRESSION: No acute intracranial abnormality.
--- NOTE | 2017-10-30 15:23 | CT ---
EXAM: CT cervical spine without contrast HISTORY: Injury COMPARISON: 10/06/2017 TECHNIQUE: CT cervical spine performed without contrast. Coronal and sagittal reformatted images ob tained. FINDINGS: Patient status post posterior spinal fusion from C5 through T2 with redemonstration of a c ompression fracture of C7 that appears unchanged with 3 mm retropulsion The C5 screws are noted to e xtend about the posterior margins of the pedicles and do not extend into the body, unchanged, Remaind er of vertebral bodies normal height. No new fracture. No subluxation. Chronic degenerative change s appear unchanged, with areas of mild central canal narrowing and mild moderate neural foraminal alec rowing. Prevertebral soft tissues appear normal. Atherosclerosis carotid arteries. Sinus mucosal c hanges are incompletely imaged IMPRESSION: No acute fracture or subluxation. Redemonstration of C5-T2 posterior spinal fusion with a recent compression fracture C7. As previously described, the C5 screws do not penetrate cortex. C hronic degenerative changes.
== END 2017-10-30 15:50 | disposition left against medical advice (07) ==
LOC: ED 14:03
DX: M54.2 Cervicalgia (principal); S09.90XA Unspecified injury of head, initial encounter; R41.82 Altered mental status, unspecified; Y09 Assault by unspecified means; F17.210 Nicotine dependence, cigarettes, uncomplicated; F91.9 Conduct disorder, unspecified
CPT/HCPCS: 36415; 80053; 80306; 80307; 82140; 82150; 82550; 82553; 83690; 84484; 85025; 93005; 93010; 99283; 99284

== ENCOUNTER 2017-10-30 19:12 | Emergency (ER) ==
[2017-10-30 19:21] VITALS: BP 128/96; TEMP 97.8; BMI 18.3
--- NOTE | 2017-10-30 20:14 | CT ---
Exam: CT of the brain without intravenous contrast. Comparison: CT of the brain performed on the same day. Reason for exam: Hallucinations FINDINGS: No acute intracranial hemorrhage, mass effect, ventricular dilatation, or territorial infa rction. No depressed calvarial fracture is seen. There is near-complete opacification of the right maxillary sinus with mucosal thickening in the ethmoid sinuses. The quadrigeminal and ambient cistern s are patent. There is no extraaxial fluid collection. Impression: 1. No acute intracranial findings. 2. Near-complete opacification of the right maxillary sinus with mucosal thickening in the ethmoid s inuses consistent with sinus disease
--- NOTE | 2017-10-30 21:13 | ED.PDOC ---
General ED Provider: Dr. LICHA MICHAEL-ER Chief Complaint: Behavioral Complaint Stated Complaint: brought in police--had some knives but he denies this Time Seen by Physician: 19:15 Mode of Arrival: Police Information Source: Patient, Police Exam Limitations: No limitations Primary Care Provider: [facility] Nursing and Triage Documentation Reviewed and Agree: Yes Reviewed sepsis parameters & appropriate labs ordered?: Yes System Inflammatory Response Syndrome: Not Applicable Sepsis Protocol: For patient's 13 years and over: Temp is 96.8 and below OR 101 and greater Pulse >90 BPM Resp >20/minute Acutely Altered Mental Status Are patient's symptoms suggestive of a new infection, such as: -Pneumonia -Skin, Soft Tissue -Endocarditis -UTI -Bone, Joint Infection -Implantable Device -Acute Abdominal Infection -Wound Infection -Meningitis -Blood Stream Catheter Infection -Unknown Psychological Complaint Exam - Psychiatric Complaint/Exam Patient Complains Of: Present: Other Onset/Duration: uknown Symptoms Are: Still present Timing: Constant Initial Severity: Mild Current Severity: Mild Character: Present: Anxious Aggravating: Reports: Medication noncompliance Associated Signs And Symptoms: Reports: Paranoid behavior, Sleep disturbance Related History: Denies: Suicidal thoughts, Suicidal plan, Homicidal gestures Completed Suicide Risk Factors: None Patient Accompanied By: Police Social Withdrawal Present: No Social Isolation Present: No Prior Suicide Attempt: No Injury From Prior Suicide Attempt: No Related Surgical History: Reports: None Patient Uncooperative For Exam: Yes Mood: Present: Agitated, Anxious Appearance: Present: Unkempt Insight: Present: Poor Memory: Intact Judgement: Normal Danger To Others: No Patient Medically Stable For: Psych evaluation Differential Diagnoses: Anxiety Review of Systems - Review Of Systems Constitutional: Reports: No symptoms Eyes: Reports: No symptoms Ears, Nose, Mouth, Throat: Reports: No symptoms Respiratory: Reports: No symptoms Cardiac: Reports: No symptoms GI: Reports: No symptoms : Reports: No symptoms Musculoskeletal: Reports: No symptoms Skin: Reports: No symptoms Neurological: Reports: Anxiety Endocrine: Reports: No symptoms Hematologic/Lymphatic: Reports: No symptoms All Other Systems: Reviewed and Negative Past Medical History - Past Medical History Previously Healthy: Yes Endocrine: Reports: None Cardiovascular: Reports: MD, Hypertension Respiratory: Reports: None Hematological: Reports: None Gastrointestinal: Reports: Pancreatitis Genitourinary: Reports: None Neuro/Psych: Reports: Anxiety, Other (ALCOHOLIC) Musculoskeletal: Reports: Unknown Cancer: Reports: None Other Pertinent Past Medical History: etoh - Surgical History General Surgical History: Reports: Cholecystectomy, Orthopedic (CARPAL TUNNEL LEFT, hand surgery on left) - Family History Family History: Reports: Unknown - Social History Smoking Status: Current every day smoker, Heavy tobacco smoker Hx Substance Use: Yes Alcohol Screening: Occasionally - Immunizations Tetanus Shot up to Date: Yes Physical Exam - Physical Exam Appearance: Well-appearing Eyes: JOLANTA, EOMI, Conjunctiva clear ENT: Ears normal, Nose normal, Oropharynx normal Respiratory: Airway patent Cardiovascular: RRR GI/: Soft, Nontender, No masses, Bowel sounds normal, No Organomegaly Musculoskeletal: Normal strength, ROM intact, No edema, No calf tenderness Skin: Warm, Dry, Normal color Neurological: Sensation intact Psychiatric: Affect appropriate, Mood appropriate, Anxious Interpretation - Radiology Interpretation Radiology Interpretation By: Radiologist Radiology Results: Negative Exam Interpreted: CT Scan Re-Evaluation - Re-Evaluation Time of Re-Evaluation: 21:15 Status: Improved Vital Signs Stable: Yes Pain Level: 0 Appearance: NAD Lungs: Clear Skin: Warm and Dry Neuro: Alert and Oriented X3 CV: RRR Critical Care Note - Critical Care Note Total Time (mins): 0 Course - Course Hematology/Chemistry: 10/30/17 19:26 10/30/17 19:26 Orders, Labs, Meds: Lab Review 10/30/17 10/30/17 10/30/17 18:26 19:26 19:26 WBC 7.23 RBC 3.69 L Hgb 12.6 L Hct 36.7 L MCV 99.5 H MCH 34.1 H MCHC 34.3 RDW Coeff of Reginaldo 14.6 Plt Count 252 Immature Gran % (Auto) 0.3 Neut % (Auto) 63.6 Lymph % (Auto) 23.8 [place] % (Auto) 10.8 H Eos % (Auto) 1.1 Baso % (Auto) 0.4 Immature Gran # (Auto) 0.0 Neut # (Auto) 4.6 Lymph # (Auto) 1.7 [place] # (Auto) 0.8 Eos # (Auto) 0.1 Baso # (Auto) 0.0 Sodium 139 Potassium 3.7 Chloride 103 Carbon Dioxide 18 L Anion Gap 21.7 BUN 14 Creatinine 0.71 Estimated GFR (MDRD) 119.00 BUN/Creatinine Ratio 19.71 Glucose 65 L Calcium 9.0 Total Bilirubin 1.0 AST 57 H ALT 23 Alkaline Phosphatase 98 Ammonia Total Protein 6.8 Albumin 3.3 L Globulin 3.5 Albumin/Globulin Ratio 0.94 Amylase 28 Lipase 15 Salicylate Level mg/dL < 5.0 Acetaminophen < 3 L Plasma/Serum Alcohol 10/30/17 10/30/17 19:26 19:26 WBC RBC Hgb Hct MCV MCH MCHC RDW Coeff of Reginaldo Plt Count Immature Gran % (Auto) Neut % (Auto) Lymph % (Auto) [place] % (Auto) Eos % (Auto) Baso % (Auto) Immature Gran # (Auto) Neut # (Auto) Lymph # (Auto) [place] # (Auto) Eos # (Auto) Baso # (Auto) Sodium Potassium Chloride Carbon Dioxide Anion Gap BUN Creatinine Estimated GFR (MDRD) BUN/Creatinine Ratio Glucose Calcium Total Bilirubin AST ALT Alkaline Phosphatase Ammonia 37 H Total Protein Albumin Globulin Albumin/Globulin Ratio Amylase Lipase Salicylate Level mg/dL Acetaminophen Plasma/Serum Alcohol < 10.0 Orders Category Date Time Status EKG-(ED ONLY) Stat CARDIO 10/30/17 19:15 Completed AMMONIA Stat LAB 10/30/17 19:26 Completed AMYLASE Stat LAB 10/30/17 18:26 Completed CBC W/ AUTO DIFF Stat LAB 10/30/17 19:26 Completed COMPREHENSIVE METABOLIC PANEL Stat LAB 10/30/17 19:26 Completed ETOH LEVEL [BLOOD ALCOHOL] Stat LAB 10/30/17 19:26 Completed LIPASE Stat LAB 10/30/17 18:26 Completed SALICYLATE Stat LAB 10/30/17 19:26 Completed TYLENOL LEVEL [ACETAMINOPHEN] Stat LAB 10/30/17 19:26 Completed URINALYSIS C & S IF INDICATED Stat LAB 10/30/17 19:15 Uncollected URINE DRUG SCREEN (RAPID FOR ED) [DRUG SCREEN, URINE, LAB 10/30/17 19:15 Uncollected RAPID] Stat CT HEAD W/O CONTRAST Stat RADS 10/30/17 19:15 Completed Vital Signs: Temp Pulse Resp BP Pulse Ox 10/30/17 19:13 97.8 F 106 H 17 128/96 H 97 Departure - Departure Time of Disposition: 21:15 Disposition: AMA Discharge Problem: Problem behavior Instructions: Conduct Disorder (ED) Condition: Fair Pt referred to PMD for follow-up: Yes IPMP verified?: No Additional Instructions: f/u with pcp Allergies/Adverse Reactions: Allergies No Known Allergies Allergy (Verified 10/30/17 19:22) Home Medications: Ambulatory Orders Oxycodone HCl/Acetaminophen [Percocet 7.5-325 mg Tablet] 7.5 mg PO TID PRN 10/30 Disposition Discussed With: Patient
== END 2017-10-30 21:18 | disposition left against medical advice (07) ==
LOC: ED 19:12
DX: F91.9 Conduct disorder, unspecified (principal); F17.210 Nicotine dependence, cigarettes, uncomplicated
CPT/HCPCS: 36415; 80053; 80307; 82140; 82150; 83690; 85025; 93005; 93010; 99283

== ENCOUNTER 2017-12-01 11:12 | Outpatient (CLI) ==
[2012-11-07 13:18] VITALS: TEMP 97.6
== END 2017-12-01 11:28 | disposition short-term general hospital (02) ==
LOC: AMBL 11:12
PROVIDERS: ATTEND Family Medicine
DX: R25.8 Other abnormal involuntary movements (principal); F10.20 Alcohol dependence, uncomplicated

== ENCOUNTER 2017-12-14 15:29 | Inpatient (IN) ==
[2017-12-14 15:33] VITALS: BMI 18.7
[2017-12-14] MEDS ORDERED: PERCOCET 10-325 PO STA (15:35)
--- NOTE | 2017-12-14 15:59 | CT ---
EXAM: CT of the abdomen pelvis without contrast History: Abdominal pain. Comparison: CT abdomen pelvis 10/06/2017 Technique: Multiplanar CT images through the abdomen pelvis were obtained without the administration of IV contrast. Findings: Coronary calcifications. Lung bases are free of consolidation. No acute osseous abnormal ities. No significant interval change in the pseudocyst in the pancreatic tail. Pancreatic calcifications a re again identified. Pancreatic duct is not dilated. There is peripancreatic edema. There is also edema seen along the course of the duodenum. Atherosclerotic vascular calcifications. Status post c holecystectomy. Calcified granulomas within the liver and spleen. No renal stones and no hydronephr osis. The appendix is not dilated or inflamed. No bowel obstruction. Bladder is not well distended . Scattered colonic stool. Colonic diverticulosis. No free air. Impression: 1. Acute on chronic pancreatitis. Pancreatic duct is dilated. 2. The inflammation along the duodenum is probably related to the pancreatitis but cannot exclude albright perimposed duodenitis. 3. Colonic diverticulosis. 4. No change in the pancreatic pseudocyst. 5. Colonic diverticulosis. 6. Atherosclerotic vascular disease.
[2017-12-14] MEDS ORDERED: DILAUDID 2 MG/ML SYRINGE IVP STA ×2 (16:30→18:03)
[2017-12-14] MEDS ORDERED: SODIUM CHLORIDE 1,000 ML IV STA (16:30)
--- NOTE | 2017-12-14 16:30 | ED.PDOC ---
General ED Provider: Dr. LICHA MICHAEL-ER Chief Complaint: Abdominal Pain Stated Complaint: i ate a sandwich and i am hurting Time Seen by Physician: 15:40 Mode of Arrival: Walk-In Information Source: Patient Exam Limitations: No limitations Primary Care Provider: [facility] Nursing and Triage Documentation Reviewed and Agree: Yes Does patient meet sepsis criteria?: No System Inflammatory Response Syndrome: Not Applicable Sepsis Protocol: For patient's 13 years and over: Temp is 96.8 and below OR 101 and greater Pulse >90 BPM Resp >20/minute Acutely Altered Mental Status Are patient's symptoms suggestive of a new infection, such as: -Pneumonia -Skin, Soft Tissue -Endocarditis -UTI -Bone, Joint Infection -Implantable Device -Acute Abdominal Infection -Wound Infection -Meningitis -Blood Stream Catheter Infection -Unknown GI Complaint Exam - Abdominal Pain Complaint/Exam Onset: Gradual Duration: several hours Symptoms Are: Still present Timing: Constant Initial Severity: Mild Current Severity: Moderate Location of Pain: Diffuse Radiates To: Reports: Back Character: Reports: Dull, Aching, Unable to describe Alleviating: Reports: None Associated Signs and Symptoms: Reports: Decreased appetite, Nausea Related History: Reports: Similar episode Related Surgical History: Reports: Cholecystectomy Abdominal Findings: Present: None Differential Diagnoses: Bowel Obstruction, Constipation, Pancreatitis Quality Indicator For Non-Traumatic Chest Pain/Syncope: EKG Performed Review of Systems - Review Of Systems Constitutional: Reports: No symptoms Eyes: Reports: No symptoms Ears, Nose, Mouth, Throat: Reports: No symptoms Respiratory: Reports: No symptoms Cardiac: Reports: No symptoms GI: Reports: Abdominal pain, Nausea : Reports: No symptoms Musculoskeletal: Reports: No symptoms Skin: Reports: No symptoms Neurological: Reports: No symptoms Endocrine: Reports: No symptoms Hematologic/Lymphatic: Reports: No symptoms All Other Systems: Reviewed and Negative Past Medical History - Past Medical History Previously Healthy: Yes Endocrine: Reports: None Cardiovascular: Reports: MA, Hypertension Respiratory: Reports: None Hematological: Reports: None Gastrointestinal: Reports: Pancreatitis Genitourinary: Reports: None Neuro/Psych: Reports: Anxiety, Other (ALCOHOLIC) Musculoskeletal: Reports: Unknown Cancer: Reports: None Other Pertinent Past Medical History: etoh - Surgical History General Surgical History: Reports: Cholecystectomy, Orthopedic (CARPAL TUNNEL LEFT, hand surgery on left) - Family History Family History: Reports: Unknown - Social History Smoking Status: Current every day smoker, Heavy tobacco smoker Hx Substance Use: Yes Alcohol Screening: Occasionally Lives: With family - Immunizations Tetanus Shot up to Date: No Physical Exam - Physical Exam Appearance: Well-appearing, Well-nourished Pain Distress: Moderate Eyes: JOLANTA, EOMI, Conjunctiva clear ENT: Ears normal, Nose normal, Oropharynx normal Neck: Supple Respiratory: Airway patent Cardiovascular: RRR GI/: Soft, Nontender, No masses, Bowel sounds normal, No Organomegaly Musculoskeletal: Normal strength Skin: Warm, Dry, Normal color Neurological: Sensation intact, Motor intact, Reflexes intact, Cranial nerves intact, Alert, Oriented Psychiatric: Affect appropriate, Mood appropriate, Anxious Interpretation - Radiology Interpretation Radiology Interpretation By: Radiologist Radiology Results: Positive Exam Interpreted: CT Scan ("acute on chronic pancreatitis") - EKG Interpretation Time of EKG #1: 16:33 Rate: Normal Rhythm: Sinus Ectopy: None [place]: NL ST Segment: Normal Interpretation: nsr Physician Notification - Case Discussed Physician Notified: dr sullivan Time of Notification: 16:51 Critical Care Note - Critical Care Note Total Time (mins): 0 Course - Course Hematology/Chemistry: 12/14/17 16:00 12/14/17 16:00 Orders, Labs, Meds: Lab Review 12/14/17 12/14/17 12/14/17 16:00 16:00 16:00 WBC 15.92 H RBC 4.89 Hgb 16.1 Hct 46.5 MCV 95.1 H MCH 32.9 H MCHC 34.6 RDW Coeff of Reginaldo 12.3 Plt Count 354 Immature Gran % (Auto) 0.4 Neut % (Auto) 70.3 Lymph % (Auto) 19.4 [place] % (Auto) 6.3 Eos % (Auto) 3.0 Baso % (Auto) 0.6 Immature Gran # (Auto) 0.1 Neut # (Auto) 11.2 H Lymph # (Auto) 3.1 [place] # (Auto) 1.0 Eos # (Auto) 0.5 Baso # (Auto) 0.1 ESR 7 Sodium 141 Potassium 3.8 Chloride 103 Carbon Dioxide 26 Anion Gap 15.8 BUN 7 Creatinine 0.77 Estimated GFR (MDRD) 108.00 BUN/Creatinine Ratio 9.09 Glucose 128 H Calcium 9.5 Total Bilirubin 0.5 AST 16 ALT 11 L Alkaline Phosphatase 125 Total Creatine Kinase 78 Troponin I < 0.0100 Total Protein 7.9 Albumin 4.0 Globulin 3.9 Albumin/Globulin Ratio 1.03 Amylase 134 H Lipase 90 H Urine Color Urine Clarity Urine pH Ur Specific [place] Urine Protein Urine Glucose (UA) Urine Ketones Urine Blood Urine Nitrite Urine Bilirubin Urine Urobilinogen Ur Leukocyte Esterase Urine Microscopic RBC Urine Microscopic WBC Ur Squamous Epith Cells Amorphous Sediment Urine Bacteria Hyaline Casts Granular Casts Urine Mucus Plasma/Serum Alcohol < 10.0 12/14/17 16:14 WBC RBC Hgb Hct MCV MCH MCHC RDW Coeff of Reginaldo Plt Count Immature Gran % (Auto) Neut % (Auto) Lymph % (Auto) [place] % (Auto) Eos % (Auto) Baso % (Auto) Immature Gran # (Auto) Neut # (Auto) Lymph # (Auto) [place] # (Auto) Eos # (Auto) Baso # (Auto) ESR Sodium Potassium Chloride Carbon Dioxide Anion Gap BUN Creatinine Estimated GFR (MDRD) BUN/Creatinine Ratio Glucose Calcium Total Bilirubin AST ALT Alkaline Phosphatase Total Creatine Kinase Troponin I Total Protein Albumin Globulin Albumin/Globulin Ratio Amylase Lipase Urine Color Yellow Urine Clarity Clear Urine pH 5.5 Ur Specific [place] >=1.030 Urine Protein 1+ Urine Glucose (UA) Negative Urine Ketones 1+ Urine Blood Trace-intact Urine Nitrite Negative Urine Bilirubin 1+ Urine Urobilinogen 0.2 Ur Leukocyte Esterase Negative Urine Microscopic RBC 0-2 Urine Microscopic WBC 0-2 Ur Squamous Epith Cells 0-2 Amorphous Sediment Trace Urine Bacteria Trace Hyaline Casts 20-30 Granular Casts 0-2 Urine Mucus Trace Plasma/Serum Alcohol Orders Category Date Time Status EKG-(ED ONLY) Stat CARDIO 12/14/17 15:35 Completed ED IV/MEDIPORT/POWERPORT .ONCE EMERGENCY 12/14/17 16:30 Active AMYLASE Stat LAB 12/14/17 16:00 Completed BLOOD ALCOHOL Stat LAB 12/14/17 16:00 Completed CBC W/ AUTO DIFF Stat LAB 12/14/17 16:00 Completed COMPREHENSIVE METABOLIC PANEL Stat LAB 12/14/17 16:00 Completed CREATINE KINASE Stat LAB 12/14/17 16:00 Completed ESR Stat LAB 12/14/17 16:00 Completed LIPASE Stat LAB 12/14/17 16:00 Completed TROPONIN I Stat LAB 12/14/17 16:00 Completed URINALYSIS C & S IF INDICATED Stat LAB 12/14/17 16:14 Completed 0.9 % Sodium Chloride [Saline Flush] MEDS 12/14/17 16:30 Ordered 1 syr IVF PRN PRN Hydromorphone HCl/Pf [Dilaudid 2 mg/ml Syringe] MEDS 12/14/17 16:30 Discontinued 1 mg IVP ONCE STA Ondansetron HCl/Pf [Zofran 4 mg/2 ml] MEDS 12/14/17 16:31 Discontinued 4 mg IVP ONCE STA Oxycodone-Acetaminophen 10-325 [Percocet 10-325] MEDS 12/14/17 15:35 Discontinued 1 tab PO ONCE STA Sodium Chloride 0.9% [Sodium Chloride] 1,000 ml MEDS 12/14/17 16:30 Active IV 100 mls/hr CT ABDOMEN/PELVIS WO CONTRAST Stat RADS 12/14/17 15:35 Completed Medications Generic Name Dose Route Start Last Admin Trade Name Freq PRN Reason Stop Dose Admin Sodium Chloride 1,000 mls @ 100 mls/hr 12/14/17 16:30 Sodium Chloride IV 12/15/17 02:29 .Q10H STA Sodium Chloride 1 syr 12/14/17 16:30 Saline Flush IVF PRN PRN To flush IV Discontinued Medications Generic Name Dose Route Start Last Admin Trade Name Freq PRN Reason Stop Dose Admin Hydromorphone HCl 1 mg 12/14/17 16:30 Dilaudid 2 Mg/Ml Syringe IVP 12/14/17 16:31 ONCE STA Ondansetron HCl 4 mg 12/14/17 16:31 Zofran 4 Mg/2 Ml IVP 12/14/17 16:32 ONCE STA Oxycodone/Acetaminophen 1 tab 12/14/17 15:35 12/14/17 16:12 Percocet 10-325 PO 12/14/17 15:36 1 tab ONCE STA Administration Vital Signs: Temp Pulse Resp BP Pulse Ox 12/14/17 15:30 97.1 F L 112 H 20 181/102 H 96 Departure - Departure Time of Disposition: 16:51 Disposition: ADMITTED INPATIENT Discharge Problem: Acute pancreatitis Qualifiers: Pancreatitis type: unspecified pancreatitis type Acute pancreatitis complication: unspecified Qualified Code(s): K85.90 - Acute pancreatitis without necrosis or infection, unspecified Instructions: Pancreatitis (ED) Condition: Good Pt referred to PMD for follow-up: Yes IPMP verified?: No Allergies/Adverse Reactions: Allergies No Known Allergies Allergy (Verified 12/14/17 15:34) Home Medications: Ambulatory Orders Oxycodone HCl/Acetaminophen [Percocet 7.5-325 mg Tablet] 7.5 mg PO TID PRN 10/30 Disposition Discussed With: Patient, Family
[2017-12-14] MEDS ORDERED: ZOFRAN 4 MG/2 ML IVP STA (16:31)
[2017-12-14] MEDS ORDERED: ZOFRAN 4 MG/2 ML IVP PRN (16:57)
[2017-12-14] MEDS: NICODERM 21 MG TD SCH (17:47)
[2017-12-14] MEDS: DESYREL PO SCH (21:07)
[2017-12-14] MEDS: DILAUDID 2 MG/ML SYRINGE IVP PRN (21:08)
[2017-12-14] MEDS: XANAX PO SCH (21:08)
[2017-12-15] MEDS: DILAUDID 2 MG/ML SYRINGE IVP PRN ×6 (01:39→22:22)
[2017-12-15] MEDS: D5%-NS-KCL 20 MEQ/L IV SOL 1,000 ML IV SCH ×4 (02:00→16:27)
[2017-12-15] MEDS: XANAX PO SCH ×2 (08:17→20:28)
[2017-12-15] MEDS: NICODERM 21 MG TD SCH (08:18)
[2017-12-15] MEDS: LOVENOX SUBCUT SCH (08:26)
[2017-12-15] MEDS: DESYREL PO SCH (20:28)
[2017-12-16] MEDS: D5%-NS-KCL 20 MEQ/L IV SOL 1,000 ML IV SCH ×3 (00:52→17:28)
[2017-12-16] MEDS: DILAUDID 2 MG/ML SYRINGE IVP PRN ×6 (02:27→23:59)
[2017-12-16] MEDS: LOVENOX SUBCUT SCH (09:04)
[2017-12-16] MEDS: NICODERM 21 MG TD SCH (09:04)
[2017-12-16] MEDS: XANAX PO SCH ×2 (09:05→20:41)
[2017-12-16] MEDS ORDERED: GI COCKTAIL PO PRN (10:36)
[2017-12-16] MEDS ORDERED: PROTONIX IV IVP SCH (11:30)
--- NOTE | 2017-12-16 14:55 | HP ---
DATE OF SERVICE: 12/14/17 CHIEF COMPLAINT: Abdominal pain, nausea, vomiting, unable to keep anything down. HISTORY OF PRESENT ILLNESS: This is a 47-year-old male, who is very well known to me with history of recurrent pancreatitis, pancreatic cirrhosis and alcoholism. The patient quit alcohol for a couple of months. Today he had a sandwich, began to have abdominal pain, nausea and vomiting. He was not able to tolerate, came to the emergency room and was seen by Dr. Tristan in the emergency room. White count 15.92 with left shift. Amylase 134, lipase is 90. Urine negative. Toxicology screen - alcohol is negative. CT of abdomen and pelvis done which showed acute on chronic pancreatitis, pancreatic duct dilated, inflammation along the duodenum is probably related to pancreatitis but cannot exclude superimposed duodenitis. At that time, the patient was admitted to the hospital for IV fluids , pain control, nausea medication. REVIEW OF SYSTEMS: CONSTITUTIONAL: Weakness, tiredness. No fever, no chills. HEENT: Normal. ENDOCRINE: No weight gain; no weight loss. CVS: No chest pain. No PND, no orthopnea. No shortness of breath. No PND, no orthopnea. RESPIRATORY: No cough, no congestion. No hemoptysis. GI: Nausea and vomiting. Abdominal pain. No melena. : No hematuria. No polyuria. MUSCULOSKELETAL: Chronic neck pain. No joint swelling. PSYCHIATRIC: Not anxious. No depression. No suicidal thoughts. No homicidal thoughts. SKIN: Intact, no open lesions. 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 HEENT: Atraumatic, normocephalic. No scleral icterus. Sick looking male lying in bed. NECK: Supple. No JVD, no bruit. No lymphadenopathy. No thyromegaly. HEART: S1, S2 normal. No murmur. No cyanosis or clubbing. No ascites. LUNGS: Clear to auscultation. No rales or rhonchi. ABDOMEN: Soft, epigastric tenderness. Bowel sounds are not present. No CVA tenderness. Rigidity is present. No guarding. EXTREMITIES: No pedal edema. No cyanosis or clubbing MUSCULOSKELETAL: Normal joints, no swelling. NEUROLOGIC: The patient is awake and alert. SKIN: Intact; no open lesions. Multiple skin tattoos. LYMPHATIC: No lymph nodes palpable. LABS: White count 15.92, hemoglobin 16.1, hematocrit 46.5, platelet count 354. Sodium 141, potassium 3.8, chloride 103, bicarb 26, BUN 7, creatinine 0.77, glucose 128. Amylase 134, lipase 90. ASSESSMENT: 1. ACUTE ON CHRONIC PANCREATITIS 2. ABDOMINAL PAIN, INTRACTABLE 3. HISTORY OF PANCREATIC PSEUDOCYST 4. HYPERTENSION 5. CORONARY ARTERY DISEASE 6. CHRONIC PAIN SYNDROME PLAN: 1. Admit patient to the regular floor 2. CBC, CMP today and daily 3. NPO 4. IV fluids 5. Lovenox for DVT prophylaxis 6. Dilaudid 1 mg q.6hr p.r.n. 7. Continue home medications Guarded prognosis has been discussed. TIME SPENT: MORE THAN 75 minutes MTDD
[2017-12-16] MEDS: DESYREL PO SCH (20:41)
[2017-12-17] MEDS: D5%-NS-KCL 20 MEQ/L IV SOL 1,000 ML IV SCH (01:20)
[2017-12-17] MEDS: DILAUDID 2 MG/ML SYRINGE IVP PRN (04:08)
[2017-12-17 06:04] VITALS: BP 126/76; TEMP 98
[2017-12-17] MEDS ORDERED: DILAUDID 2 MG/ML SYRINGE IVP PRN (08:44)
--- NOTE | 2017-12-17 11:05 | PN ---
DATE OF SERVICE: 12/15/17 SUBJECTIVE: The patient was admitted with acute abdominal pain, pancreatitis. The patient has a history of chronic and recurrent pancreatitis. Was dehydrated yesterday. Still complaining of the epigastric pain and has nausea but no diarrhea. REVIEW OF SYSTEMS: CONSTITUTIONAL: No fever, no chills. HEENT: Normal. ENDOCRINE: No weight gain, no weight loss. CVS: No angina symptoms. No CHF symptoms. No palpitations. No atypical chest pain for CAD. No shortness of breath. No PND, no orthopnea. RESPIRATORY: No cough, no hemoptysis. GI: No nausea, no vomiting. No abdominal pain. : No hematuria. No polyuria. MUSCULOSKELETAL: No joint swelling. PSYCHIATRIC: Not anxious. No depression. No suicidal thoughts. No homicidal thoughts. SKIN: Intact. No rash. PHYSICAL EXAMINATION: V/S: Blood pressure 188/94, respiratory rate 18, heart rate 79, temperature 98.6 with saturation 99%. GENERAL: Sick looking man laying in bed. HEENT: Normocephalic, atraumatic. Mucosa dry. Pallor positive. No icterus NECK: Supple. No JVD, no carotid bruit. No lymphadenopathy. LUNGS: Clear to auscultation. No rales or rhonchi. HEART: S1, S2 normal. No S3. No murmur, gallop or regurgitation. ABDOMEN: Soft, nontender.Epigastric tenderness is present. Guarding is present. Bowel sounds sluggish. No rigidity. No rebound. No CVA tenderness. EXTREMITIES: No cyanosis, clubbing or pedal edema. MUSCULOSKELETAL: No joint swelling. NEUROLOGIC: Awake, alert. No focal deficit. LYMPHATIC: No lymph nodes palpable. SKIN: Intact. Dry. Multiple tattoos. LABS: WBC 8.35, hgb 15.7, hct 46.7, plt count 249, sodium 140, potassium 3.8, chloride 105, bicarb 26, BUN 7, creatinine 0.64 and glucose 115. ASSESSMENT: 1. Acute on chronic pancreatitis 2. Dehydration 3. Chronic pain syndrome 4. Osteoarthritis 5. DJD spine 6. Past history of alcoholism which he stopped PLAN: 1. Dilaudid PRN 2. IV fluids 3. Lovenox for the DVT prophylaxis 4. NPO TIME SPENT: More than 35 minutes MTDD
--- NOTE | 2017-12-17 13:21 | PN ---
DATE OF SERVICE: 12/16/17 SUBJECTIVE: The patient is admitted with acute on chronic pancreatitis, still having abdominal pain. No nausea or vomiting. REVIEW OF SYSTEMS: CONSTITUTIONAL: No fever, no chills. HEENT: Normal. ENDOCRINE: No weight gain, no weight loss. CVS: No angina symptoms. No CHF symptoms. No palpitations. No atypical chest pain for CAD. No shortness of breath. No PND, no orthopnea. RESPIRATORY: No cough, no hemoptysis. GI: No nausea, no vomiting. Abdominal pain. : No hematuria. No polyuria. MUSCULOSKELETAL: No joint swelling. PSYCHIATRIC: Not anxious. No depression. No suicidal thoughts. No homicidal thoughts. SKIN: Intact. No rash. PHYSICAL EXAMINATION: V/S: BP 126/83, respiratory rate 20, heart rate 76, temperature 98.2, saturation 96. HEENT: Normocephalic, atraumatic. Mucosa dry. Sick looking man. NECK: Supple. No JVD, no carotid bruit. No lymphadenopathy. LUNGS: Clear to auscultation. No rales or rhonchi. HEART: S1, S2 normal. No S3. No murmur, gallop or regurgitation. ABDOMEN: Epigastric tenderness and guarding is present. Bowel sounds sluggish. No rigidity. Guarding is present. No CVA tenderness. EXTREMITIES: No cyanosis, clubbing or pedal edema. MUSCULOSKELETAL: No joint swelling. NEUROLOGIC: Awake, alert. No focal deficit. LYMPHATIC: No lymph nodes palpable. SKIN: Intact. LABS: Hemoglobin 14.4, hematocrit 42.4, white count 7.57, platelet count 222. Sodium 139, potassium 4.0, chloride 104, bicarb 26, BUN 4, creatinine 0.60, glucose 123. ASSESSMENT: 1. ACUTE ON CHRONIC PANCREATITIS 2. HISTORY OF ALCOHOL USE 3. PANCREATIC PSEUDOCYST 4. CHRONIC ABDOMINAL PAIN PLAN: 1. Continue Dilaudid p.r.n. 2. Daily I & O's 3. Clear liquid diet TIME SPENT: More than 35 minutes MTDD
--- NOTE | 2017-12-17 20:38 | PCM.HOSP ---
- Initial Hospital Care [id number] Minutes Bedside ([id number]): 12/14 - Subsequent Care [id number] 35 Minutes per Day ([id number]): 12/15. 7/. 12/17(AMChloe)
--- NOTE | 2017-12-18 11:26 | PN ---
DATE OF SERVICE: 12/17/17 SUBJECTIVE: The patient is here for acute on chronic pancreatitis. The patient is still complaining of pain and the patient is taking Dilaudid every 2 to 4 hours. He was able to eat and drink and wants to eat more. I explained about the pain medication policy that the patient's pain medication has to be decreased as the patient is feeling better and the labs are getting better. REVIEW OF SYSTEMS: CONSTITUTIONAL: No fever, no chills. HEENT: Normal. ENDOCRINE: No weight gain, no weight loss. CVS: No angina symptoms. No CHF symptoms. No palpitations. No atypical chest pain for CAD. No shortness of breath. No PND, no orthopnea. RESPIRATORY: No cough, no hemoptysis. GI: No nausea, no vomiting. Abdominal pain. : No hematuria. No polyuria. MUSCULOSKELETAL: No joint swelling. PSYCHIATRIC: Not anxious. No depression. No suicidal thoughts. No homicidal thoughts. SKIN: Intact. No rash. PHYSICAL EXAMINATION: V/S: BP 145/84, respiratory rate 16, heart rate 70, temperature 97.5, saturation 98. HEENT: Normocephalic, atraumatic. Mucosa dry. NECK: Supple. No JVD, no carotid bruit. No lymphadenopathy. LUNGS: Clear to auscultation. No rales or rhonchi. HEART: S1, S2 normal. No S3. No murmur, gallop or regurgitation. ABDOMEN: Epigastric tenderness with guarding present. Bowel sounds active. No rigidity. No CVA tenderness. EXTREMITIES: No cyanosis, clubbing or pedal edema. MUSCULOSKELETAL: No joint swelling. NEUROLOGIC: Awake, alert. No focal deficit. LYMPHATIC: No lymph nodes palpable. SKIN: Intact. LABS: White count 5.73, hemoglobin 14.0, hematocrit 41.2, platelet count 216. Sodium 139, potassium 4.1, chloride 101, bicarb 13, BUN 4, creatinine 0.59, glucose 109. ASSESSMENT: 1. ACUTE ON CHRONIC PANCREATITIS 2. CHRONIC ABDOMINAL PAIN AND WEIGHT LOSS 3. SUBSTANCE USE 4. HISTORY OF ALCOHOL USE BUT NOT NOW PLAN: 1. Decrease Dilaudid to 1 mg q.12hr 2. Soft diet 3. Up and about and walking TIME SPENT: More than 35 minutes MTDD
--- NOTE | 2017-12-18 11:57 | AMA ---
DATE OF SERVICE: 12/17/17 HISTORY: The patient, after rounds and realizing that pain medication was not given, he threatened that he would sign out against medical advice (AMA). Again, the nurse and myself explained that leaving AMA is not a good idea and the patient can still be in trouble if things don't go as planned. He did not listen, was adamant that he wanted his pain medication every four hours and we are not going to give the pain medication every four hours and he was going to leave the hospital. When explained about the pain medication and how to taper the medication, he got upset and walked out of the hospital. I did suggest that in case he is not feeling good, he can always come back to the emergency room. NICKI
== END 2017-12-17 09:50 | disposition left against medical advice (07) | DRG 440 ==
LOC: ED 15:29 → MEDSURG B 16:52
PROVIDERS: ADMIT Emergency Medicine; ATTEND Emergency Medicine
DX: K85.90 Acute pancreatitis without necrosis or infection, unspecified (principal); R63.0 Anorexia; R11.2 Nausea with vomiting, unspecified; I10 Essential (primary) hypertension; I25.10 Atherosclerotic heart disease of native coronary artery without angina pectoris; G89.4 Chronic pain syndrome; K86.1 Other chronic pancreatitis; E86.0 Dehydration; M47.9 Spondylosis, unspecified; M19.90 Unspecified osteoarthritis, unspecified site; F10.21 Alcohol dependence, in remission; F17.200 Nicotine dependence, unspecified, uncomplicated; Z72.0 Tobacco use
CPT/HCPCS: 36415; 80053; 80307; 81001; 82150; 82550; 83690; 84484; 85025; 85651; 93005; 93010; 96365; 96375; 99223; 99233; 99285

== ENCOUNTER 2018-01-25 07:38 | Emergency (ER) | payer MEDICAID, OTHER ==
[2018-01-25 07:41] VITALS: BP 164/106; TEMP 96.6; BMI 18.5
[2018-01-25] MEDS ORDERED: SODIUM CHLORIDE 1,000 ML IV STA (07:48)
[2018-01-25] MEDS ORDERED: MORPHINE 4 MG/ML VIAL IVP STA (07:48)
[2018-01-25] MEDS ORDERED: PROTONIX IV IVP STA (07:48)
[2018-01-25] MEDS ORDERED: ZOFRAN 4 MG/2 ML IVP STA (07:48)
--- NOTE | 2018-01-25 07:56 | ED.PDOC ---
General ED Provider: Dr. WESLY SOL Chief Complaint: Abdominal Pain Stated Complaint: Patient complains of abdominal pain that started this morning after eating. He denies any ETOH Time Seen by Physician: 07:45 Mode of Arrival: Walk-In Information Source: Patient Exam Limitations: No limitations [facility] and Triage Documentation Reviewed and Agree: Yes Does patient meet sepsis criteria?: No System Inflammatory Response Syndrome: Pulse >90 BPM Sepsis Protocol: For patient's 13 years and over: Temp is 96.8 and below OR 101 and greater Pulse >90 BPM Resp >20/minute Acutely Altered Mental Status Are patient's symptoms suggestive of a new infection, such as: -Pneumonia -Skin, Soft Tissue -Endocarditis -UTI -Bone, Joint Infection -Implantable Device -Acute Abdominal Infection -Wound Infection -Meningitis -Blood Stream Catheter Infection -Unknown GI Complaint Exam - Abdominal Pain Complaint/Exam Onset: Gradual Duration: 6 hours Symptoms Are: Still present Timing: Constant Initial Severity: Moderate Current Severity: Severe Location of Pain: LUQ, Epigastric Character: Reports: Aching, Throbbing Aggravating: Reports: None Alleviating: Reports: None Associated Signs and Symptoms: Reports: Back pain, Decreased appetite, Nausea AAA Risk Factors: Reports: None Cardiac Risk Factors: Reports: None Testicular Torsion Risk Factors: Reports: None Surgical Obstruction Risk Factors: Reports: None Related Surgical History: Reports: Cholecystectomy Abdominal Findings: Present: Other (Guarding ). Absent: Abdominal distention, Unequal femoral pulses, McBurney's Point tender Differential Diagnoses: Appendicitis, Bowel Obstruction, Constipation, Diverticulitis, Pancreatitis, Ischemic Bowel Review of Systems - Review Of Systems Constitutional: Reports: No symptoms Eyes: Reports: No symptoms Ears, Nose, Mouth, Throat: Reports: No symptoms Respiratory: Reports: No symptoms Cardiac: Reports: No symptoms GI: Reports: Abdominal pain : Reports: No symptoms Musculoskeletal: Reports: No symptoms Skin: Reports: No symptoms Neurological: Reports: No symptoms Endocrine: Reports: No symptoms Hematologic/Lymphatic: Reports: No symptoms All Other Systems: Reviewed and Negative Past Medical History - Past Medical History Previously Healthy: Yes Endocrine: Reports: None Cardiovascular: Reports: [place], Hypertension Respiratory: Reports: None Hematological: Reports: None Gastrointestinal: Reports: Pancreatitis Genitourinary: Reports: None Neuro/Psych: Reports: Anxiety, Other (ALCOHOLIC) Musculoskeletal: Reports: Unknown Cancer: Reports: None Other Pertinent Past Medical History: etoh - Surgical History General Surgical History: Reports: Cholecystectomy, Orthopedic (CARPAL TUNNEL LEFT, hand surgery on left) - Family History Family History: Reports: Unknown - Social History Smoking Status: Current every day smoker, Heavy tobacco smoker Hx Substance Use: Yes Alcohol Screening: Occasionally - Immunizations Tetanus Shot up to Date: No Physical Exam - Physical Exam Appearance: Ill-appearing Ill-appearing: Moderate Pain Distress: Severe Eyes: JOLANTA, EOMI, Conjunctiva clear Neck: Supple Respiratory: Airway patent, Breath sounds clear, Breath sounds equal, Respirations nonlabored Cardiovascular: RRR, Pulses normal, No rub, No murmur GI/: No masses, Tender Musculoskeletal: Normal strength, ROM intact, No edema, No calf tenderness Skin: Warm, Dry, Normal color Neurological: Motor intact, Alert, Oriented Psychiatric: Anxious Interpretation - Radiology Interpretation Radiology Interpretation By: Radiologist Radiology Results: No acute changes Exam Interpreted: CT Scan Re-Evaluation - Re-Evaluation Time of Re-Evaluation: 08:30 Status: Improved Vital Signs Stable: Yes Critical Care Note - Critical Care Note Total Time (mins): 30 Course - Course Hematology/Chemistry: 01/25/18 08:04 01/25/18 08:04 Orders, Labs, Meds: Lab Review 01/25/18 01/25/18 01/25/18 08:04 08:04 08:30 WBC 7.16 RBC 4.80 Hgb 16.1 Hct 47.1 MCV 98.1 H MCH 33.5 H MCHC 34.2 RDW Coeff of Reginaldo 14.8 Plt Count 258 Immature Gran % (Auto) 0.1 Neut % (Auto) 62.8 Lymph % (Auto) 23.6 Cross % (Auto) 11.3 H Eos % (Auto) 1.5 Baso % (Auto) 0.7 Immature Gran # (Auto) 0.0 Neut # (Auto) 4.5 Lymph # (Auto) 1.7 Cross # (Auto) 0.8 Eos # (Auto) 0.1 Baso # (Auto) 0.1 Sodium 140 Potassium 3.6 Chloride 102 Carbon Dioxide 27 Anion Gap 14.6 BUN 6 L Creatinine 0.73 Estimated GFR (MDRD) 115.00 BUN/Creatinine Ratio 8.21 Glucose 117 H Calcium 9.6 Total Bilirubin 1.1 AST 33 ALT 17 Alkaline Phosphatase 117 Total Protein 7.7 Albumin 4.0 Globulin 3.7 Albumin/Globulin Ratio 1.08 Amylase 77 Lipase 35 Urine Color Yellow Urine Clarity Clear Urine pH 6.0 Ur Specific [place] 1.025 Urine Protein 1+ Urine Glucose (UA) Negative Urine Ketones Negative Urine Blood Negative Urine Nitrite Negative Urine Bilirubin 1+ Urine Urobilinogen 0.2 Ur Leukocyte Esterase Negative Urine Microscopic WBC 0-2 Ur Squamous Epith Cells Not present Granular Casts 2-5 Urine Mucus 2+ Plasma/Serum Alcohol < 10.0 Orders Category Date Time Status ED IV/MEDIPORT/POWERPORT .ONCE EMERGENCY 01/25/18 07:48 Active Vital signs [ED VITAL SIGNS] .ONCE EMERGENCY 01/25/18 09:09 Active AMYLASE Stat LAB 01/25/18 08:04 Completed BLOOD ALCOHOL Stat LAB 01/25/18 08:04 Completed CBC W/ AUTO DIFF Stat LAB 01/25/18 08:04 Completed COMPREHENSIVE METABOLIC PANEL Stat LAB 01/25/18 08:04 Completed LIPASE Stat LAB 01/25/18 08:04 Completed URINALYSIS C & S IF INDICATED Stat LAB 01/25/18 08:30 Completed 0.9 % Sodium Chloride [Saline Flush] MEDS 01/25/18 07:48 Discontinued 1 syr IVF PRN PRN Morphine Sulfate [Morphine 2 mg/ml Syringe] MEDS 01/25/18 08:15 Discontinued 2 mg IVP ONCE STA Ondansetron HCl/Pf [Zofran 4 mg/2 ml] MEDS 01/25/18 07:48 Discontinued 4 mg IVP ONCE STA Pantoprazole Sodium [Protonix IV] MEDS 01/25/18 07:48 Discontinued 40 mg IVP ONCE STA Sodium Chloride 0.9% [Sodium Chloride] 1,000 ml MEDS 01/25/18 07:[address] ABDOMEN/PELVIS WO CONTRAST Stat RADS 01/25/18 07:52 Completed Medications Discontinued Medications Generic Name Dose Route Start Last Admin Trade Name Freq PRN Reason Stop Dose Admin Sodium Chloride 1,000 mls @ 1,000 mls/hr 01/25/18 07:48 01/25/18 08:38 Sodium Chloride IV 01/25/18 08:47 1,000 mls/hr BOLUS STA Administration Morphine Sulfate 2 mg 01/25/18 08:15 01/25/18 08:28 Morphine 2 Mg/Ml Syringe IVP 01/25/18 08:16 2 mg ONCE STA Administration Ondansetron HCl 4 mg 01/25/18 07:48 01/25/18 08:28 Zofran 4 Mg/2 Ml IVP 01/25/18 07:49 4 mg ONCE STA Administration Pantoprazole Sodium 40 mg 01/25/18 07:48 01/25/18 08:28 Protonix Iv IVP 01/25/18 07:49 40 mg ONCE STA Administration Sodium Chloride 1 syr 01/25/18 07:48 Saline Flush IVF PRN PRN To flush IV Vital Signs: Temp Pulse Resp BP Pulse Ox 01/25/18 07:39 96.6 F L 105 H 20 164/106 H 98 Departure - Departure Time of Disposition: 09:08 Disposition: HOME SELF-CARE Discharge Problem: Abdominal pain Chronic pancreatitis Qualifiers: Pancreatitis type: alcohol induced Qualified Code(s): K86.0 - Alcohol-induced chronic pancreatitis Instructions: Chronic Abdominal Pain (ED) Condition: Stable Pt referred to PMD for follow-up: Yes IPMP verified?: No Additional Instructions: continue home medications Follow up with PCP in 3 days Stop drinking ETOH Prescriptions: Dicyclomine HCl [Bentyl] 10 mg PO TID PRN #20 capsule PRN Reason: Abdominal Pain Allergies/Adverse Reactions: Allergies No Known Allergies Allergy (Verified 01/25/18 07:43) Home Medications: Ambulatory Orders Dicyclomine HCl [Bentyl] 10 mg PO TID PRN #20 capsule 01/25/18 Disposition Discussed With: Patient
[2018-01-25] MEDS ORDERED: MORPHINE 2 MG/ML SYRINGE IVP STA (08:15)
--- NOTE | 2018-01-25 08:24 | CT ---
EXAM: CT abdomen pelvis without contrast HISTORY: Lethargy and abdominal pain COMPARISON: CT 12/14/2017 and multiple priors TECHNIQUE: Serial axial images of the abdomen pelvis were performed from the lung bases through the inferior pelvis without contrast. These were viewed in multiple planes. FINDINGS: Lung bases demonstrate calcified granuloma in the right lower lobe. Evaluation is limited due to lack of contrast. The liver is unremarkable. The gallbladder has been resected. The adrenal glands are unremarkable. The kidneys are unremarkable without stone or mass. Spleen demonstrates calcified granulomas. There is a low attenuation collection in the pancreatic t ail measuring 4.3 x 3.0 cm with coarse calcifications of the remaining pancreas consistent with chron ic pancreatitis. The stomach is unremarkable. The small bowel in the abdomen pelvis is unremarkable. The appendix is normal. The colon demonstrates diverticulosis without diverticulitis. The urinary bladder is parti ally distended. The prostate is unremarkable. There is no free air or free fluid. There is mild at herosclerotic disease. There is degenerative disease of the spine. The IMPRESSION: 1. No CT evidence of acute pancreatitis with chronic pancreatitis. Coarse calcifications and fluid collection suggestive of pseudocyst. 2. Sequela of old granulomatous disease and mild atherosclerotic disease. 3. Diverticulosis without diverticulitis.
== END 2018-01-25 09:30 | disposition home or self-care (01) ==
LOC: ED 07:38
DX: K86.0 Alcohol-induced chronic pancreatitis (principal); F17.210 Nicotine dependence, cigarettes, uncomplicated
CPT/HCPCS: 36415; 80053; 80307; 81001; 82150; 83690; 85025; 96360; 96375; 99283; 99284

== ENCOUNTER 2018-02-18 10:21 | Outpatient (CLI) ==
[2012-11-07 13:18] VITALS: TEMP 97.6
--- NOTE | 2018-02-18 10:59 | DI ---
EXAM: Three views of the thoracic spine. History: Thoracic back pain. Comparison: Chest CT 09/02/2017 Findings: Grossly intact posterior fusion hardware within the lower cervical and upper thoracic spine . Stable chronic compression deformities within the mid thoracic spine. No definite acute fractures are identified. No subluxation. Mild to moderate multilevel degenerative disc space narrowing. Impression: 1. Stable chronic compression deformities. No definite acute fractures of the thoracic spine. 2. Mild to moderate degenerative disc disease. 3. Grossly intact hardware
--- NOTE | 2018-02-18 11:09 | DI ---
Exam: Five views of the lumbar spine. Comparison: CT lumbar spine performed 12/07/2015. Reason for exam: Degenerative disc disease. FINDINGS: No acute fracture or listhesis. Multilevel degenerative disease with intervertebral body disc space height narrowing and osteophyte formation. Dextroscoliotic curve of the lumbar spine. Op erative changes are seen in the right upper quadrant emboli from gallbladder removal. Impression: No acute fracture or listhesis in the lumbar spine with multilevel degenerative disease. Imaging fin dings are not significantly changed from CT imaging performed on 12/07/2015.
== END 2018-02-18 10:22 | disposition home or self-care (01) ==
LOC: RAD 10:21
PROVIDERS: ATTEND Pain Medicine Interventional Pain Medicine
DX: M51.36 Other intervertebral disc degeneration, lumbar region (principal); M51.37 Other intervertebral disc degeneration, lumbosacral region; M47.816 Spondylosis without myelopathy or radiculopathy, lumbar region; M47.817 Spondylosis without myelopathy or radiculopathy, lumbosacral region; M51.34 Other intervertebral disc degeneration, thoracic region; M47.814 Spondylosis without myelopathy or radiculopathy, thoracic region

== ENCOUNTER 2018-02-18 19:44 | Outpatient (CLI) ==
[2012-11-07 13:18] VITALS: TEMP 97.6
[2018-02-18 20:01] VITALS: BMI 18.7
== END 2018-02-18 19:50 | disposition critical access hospital (66) ==
LOC: AMBL 19:44
PROVIDERS: ATTEND Family Medicine
DX: R25.1 Tremor, unspecified (principal)

== ENCOUNTER 2018-02-18 19:57 | Emergency (ER) ==
[2018-02-18 20:01] VITALS: BP 128/98; TEMP 98; BMI 18.7
[2018-02-18] MEDS: BENADRYL IVP STA ×2 (20:22→23:01)
[2018-02-18] MEDS: ATIVAN IVP STA (20:24)
[2018-02-18] MEDS: DILAUDID 1 MG/ML SYRINGE IVP STA ×2 (20:31→21:16)
[2018-02-18] MEDS: SODIUM CHLORIDE 1,000 ML IV STA (20:31)
--- NOTE | 2018-02-18 22:26 | ED.PDOC ---
General ED Provider: Dr. LICHA MICHAEL-ER Chief Complaint: Non-specific Complaint Stated Complaint: im having a reaction to the buspar Time Seen by Physician: 19:55 Mode of Arrival: Walk-In Information Source: Patient Exam Limitations: No limitations Nursing and Triage Documentation Reviewed and Agree: Yes Does patient meet sepsis criteria?: No System Inflammatory Response Syndrome: Not Applicable Sepsis Protocol: For patient's 13 years and over: Temp is 96.8 and below OR 101 and greater Pulse >90 BPM Resp >20/minute Acutely Altered Mental Status Are patient's symptoms suggestive of a new infection, such as: -Pneumonia -Skin, Soft Tissue -Endocarditis -UTI -Bone, Joint Infection -Implantable Device -Acute Abdominal Infection -Wound Infection -Meningitis -Blood Stream Catheter Infection -Unknown Neurological Complaint Exam - Neurological Deficit Complaint/Exam Patient Complains of: Reports: Abnormal sensation Symptom Onset Unknown: No Onset: Gradual Symptoms Are: Still present Timing: Intermittent Initial Severity: Mild Current Severity: Mild Location: Reports: RUE, LUE, RLE, LLE Character: Denies: Numbness, Tingling, Paresthesia, Motor weakness, Paralysis, Sensory loss, Impaired speech Alleviating: Denies: None, Rest, OTC Meds, Heat, Ice Associated Signs and Symptoms: Reports: Agitation. Denies: Recent trauma, Remote trauma Carotid Bruit Present: No Glascow Coma Scale (see protocol): 15 Meningeal Signs Positive: No Focal Weakness: Present: None Focal Sensory Loss: Present: None Gait: Normal Nystagmus Present: No [id number]: Normal Findings Romberg Test Positive: No Babinski Sign: Negative Right, Negative Left Heel to Toe Normal: No Signs of Trauma: No Differential Diagnoses: Other Review of Systems - Review Of Systems Constitutional: Reports: No symptoms Eyes: Reports: No symptoms Ears, Nose, Mouth, Throat: Reports: No symptoms Respiratory: Reports: No symptoms Cardiac: Reports: No symptoms GI: Reports: No symptoms : Reports: No symptoms Musculoskeletal: Reports: No symptoms Skin: Reports: No symptoms Neurological: Reports: Other (dystonic reaction) Endocrine: Reports: No symptoms Hematologic/Lymphatic: Reports: No symptoms All Other Systems: Reviewed and Negative Past Medical History - Past Medical History Previously Healthy: Yes Endocrine: Reports: None Cardiovascular: Reports: [place], Hypertension Respiratory: Reports: None Hematological: Reports: None Gastrointestinal: Reports: Pancreatitis Genitourinary: Reports: None Neuro/Psych: Reports: Anxiety, Other (ALCOHOLIC) Musculoskeletal: Reports: Unknown Cancer: Reports: None Other Pertinent Past Medical History: etoh - Surgical History General Surgical History: Reports: Cholecystectomy, Orthopedic (CARPAL TUNNEL LEFT, hand surgery on left) - Family History Family History: Reports: Unknown - Social History Smoking Status: Current every day smoker, Heavy tobacco smoker Hx Substance Use: No Alcohol Screening: Heavy - Immunizations Tetanus Shot up to Date: No Physical Exam - Physical Exam Appearance: Well-appearing, No pain distress, Well-nourished Eyes: JOLANTA, EOMI, Conjunctiva clear ENT: Ears normal, Nose normal, Oropharynx normal Neck: Supple Respiratory: Airway patent, Breath sounds clear, Breath sounds equal, Respirations nonlabored Cardiovascular: RRR, Pulses normal, No rub, No murmur GI/: Soft, Nontender, No masses, Bowel sounds normal, No Organomegaly Musculoskeletal: Normal strength, ROM intact, No edema, No calf tenderness Skin: Warm, Dry, Normal color Neurological: Sensation intact, Motor intact, Reflexes intact, Cranial nerves intact, Alert, Oriented, Abnormal reflexes (dystonic reaction) Psychiatric: Affect appropriate, Mood appropriate, Anxious Re-Evaluation - Re-Evaluation Time of Re-Evaluation: 22:27 Status: Improved Vital Signs Stable: Yes Pain Level: 0 Appearance: NAD Lungs: Clear Skin: Warm and Dry Neuro: Alert and Oriented X3 CV: RRR Critical Care Note - Critical Care Note Total Time (mins): 0 Course - Course Hematology/Chemistry: 02/18/18 20:20 02/18/18 20:20 Orders, Labs, Meds: Lab Review 02/18/18 02/18/18 02/18/18 20:20 20:20 21:15 WBC 5.88 RBC 4.35 L Hgb 14.9 Hct 42.2 MCV 97.0 H MCH 34.3 H MCHC 35.3 RDW Coeff of Reginaldo 14.0 Plt Count 211 Immature Gran % (Auto) 0.2 Neut % (Auto) 41.5 Lymph % (Auto) 34.9 [place] % (Auto) 20.6 H Eos % (Auto) 1.9 Baso % (Auto) 0.9 Immature Gran # (Auto) 0.0 Neut # (Auto) 2.5 Lymph # (Auto) 2.1 [place] # (Auto) 1.2 Eos # (Auto) 0.1 Baso # (Auto) 0.1 Sodium 138.1 Potassium 4.13 Chloride 100.2 Carbon Dioxide 29.3 Anion Gap 12.73 BUN 4.1 L Creatinine 0.73 Estimated GFR (MDRD) 115.00 BUN/Creatinine Ratio 5.61 Glucose 99.9 Calcium 9.07 Total Bilirubin 0.13 L AST 60.7 H ALT 12.6 Alkaline Phosphatase 92.4 Total Protein 7.55 Albumin 4.43 Globulin 3.12 Albumin/Globulin Ratio 1.41 Urine Color Yellow Urine Clarity Clear Urine pH 6.0 Ur Specific [place] <=1.005 Urine Protein Negative Urine Glucose (UA) Negative Urine Ketones Negative Urine Blood Negative Urine Nitrite Negative Urine Bilirubin Negative Urine Urobilinogen 0.2 Ur Leukocyte Esterase Negative Urine Opiates Screen Ur Oxycodone Screen Urine Methadone Screen Ur Propoxyphene Screen Ur Barbiturates Screen U Tricyclic Antidepress Ur Phencyclidine Scrn Ur Amphetamine Screen U Methamphetamines Scrn U Benzodiazepines Scrn Urine Cocaine Screen U Cannabinoids Screen Plasma/Serum Alcohol 266.8 H 02/18/18 21:15 WBC RBC Hgb Hct MCV MCH MCHC RDW Coeff of Reginaldo Plt Count Immature Gran % (Auto) Neut % (Auto) Lymph % (Auto) [place] % (Auto) Eos % (Auto) Baso % (Auto) Immature Gran # (Auto) Neut # (Auto) Lymph # (Auto) [place] # (Auto) Eos # (Auto) Baso # (Auto) Sodium Potassium Chloride Carbon Dioxide Anion Gap BUN Creatinine Estimated GFR (MDRD) BUN/Creatinine Ratio Glucose Calcium Total Bilirubin AST ALT Alkaline Phosphatase Total Protein Albumin Globulin Albumin/Globulin Ratio Urine Color Urine Clarity Urine pH Ur Specific [place] Urine Protein Urine Glucose (UA) Urine Ketones Urine Blood Urine Nitrite Urine Bilirubin Urine Urobilinogen Ur Leukocyte Esterase Urine Opiates Screen Negative Ur Oxycodone Screen Negative Urine Methadone Screen Negative Ur Propoxyphene Screen Negative Ur Barbiturates Screen Negative U Tricyclic Antidepress Negative Ur Phencyclidine Scrn Negative Ur Amphetamine Screen Negative U Methamphetamines Scrn Negative U Benzodiazepines Scrn Negative Urine Cocaine Screen Negative U Cannabinoids Screen Negative Plasma/Serum Alcohol Orders Category Date Time Status ED IV/MEDIPORT/POWERPORT .ONCE EMERGENCY 02/18/18 20:09 Active CBC W/ AUTO DIFF Stat LAB 02/18/18 20:20 Completed COMPREHENSIVE METABOLIC PANEL Stat LAB 02/18/18 20:20 Completed ETOH LEVEL [BLOOD ALCOHOL] Stat LAB 02/18/18 20:20 Completed URINALYSIS C & S IF INDICATED Stat LAB 02/18/18 21:15 Completed URINE DRUG SCREEN (RAPID FOR ED) [DRUG SCREEN, URINE, LAB 02/18/18 21:15 Completed RAPID] Stat 0.9 % Sodium Chloride [Saline Flush] MEDS 02/18/18 20:09 Ordered 1 syr IVF PRN PRN Diphenhydramine Inj [Benadryl] MEDS 02/18/18 20:11 Discontinued 25 mg IVP ONCE STA Hydromorphone HCl [Dilaudid 1 mg/ml Syringe] MEDS 02/18/18 20:12 Discontinued 1 mg IVP ONCE STA Hydromorphone HCl [Dilaudid 1 mg/ml Syringe] MEDS 02/18/18 21:12 Discontinued 1 mg IVP ONCE STA Lorazepam [Ativan] MEDS 02/18/18 20:11 Discontinued 1 mg IVP ONCE STA Sodium Chloride 0.9% [Sodium Chloride] 1,000 ml MEDS 02/18/18 20:09 Active IV 100 mls/hr Medications Generic Name Dose Route Start Last Admin Trade Name Freq PRN Reason Stop Dose Admin Sodium Chloride 1,000 mls @ 100 mls/hr 02/18/18 20:09 02/18/18 20:31 Sodium Chloride IV 02/19/18 06:08 100 mls/hr .Q10H STA Administration Sodium Chloride 1 syr 02/18/18 20:09 Saline Flush IVF PRN PRN To flush IV Discontinued Medications Generic Name Dose Route Start Last Admin Trade Name Freq PRN Reason Stop Dose Admin Diphenhydramine HCl 25 mg 02/18/18 20:11 02/18/18 20:22 Benadryl IVP 02/18/18 20:12 25 mg ONCE STA Administration Hydromorphone HCl 1 mg 02/18/18 20:12 02/18/18 20:31 Dilaudid 1 Mg/Ml Syringe IVP 02/18/18 20:13 1 mg ONCE STA Administration Hydromorphone HCl 1 mg 02/18/18 21:12 02/18/18 21:16 Dilaudid 1 Mg/Ml Syringe IVP 02/18/18 21:13 1 mg ONCE STA Administration Lorazepam 1 mg 02/18/18 20:11 02/18/18 20:24 Ativan IVP 02/18/18 20:12 1 mg ONCE STA Administration Vital Signs: Temp Pulse Resp BP Pulse Ox 02/18/18 19:58 98.0 F 105 H 18 128/98 H 98 Departure - Departure Time of Disposition: 22:27 Disposition: HOME SELF-CARE Discharge Problem: Dystonic drug reaction Acute alcohol intoxication Qualifiers: Complication of substance-induced condition: uncomplicated Qualified Code(s): F10.929 - Alcohol use, unspecified with intoxication, unspecified Instructions: Alcohol Intoxication (ED) Condition: Good Pt referred to PMD for follow-up: No IPMP verified?: No Additional Instructions: stop etoh--stop buspar---f/y with pcp Allergies/Adverse Reactions: Allergies No Known Allergies Allergy (Verified 02/18/18 20:02) Disposition Discussed With: Patient
[2018-02-18] MEDS: DILAUDID 0.5 MG/0.5 ML SYRINGE IVP STA (23:02)
== END 2018-02-18 23:41 | disposition home or self-care (01) ==
LOC: ED 19:57
DX: R25.8 Other abnormal involuntary movements (principal); T43.595A Adverse effect of other antipsychotics and neuroleptics, initial encounter; F10.929 Alcohol use, unspecified with intoxication, unspecified; F17.210 Nicotine dependence, cigarettes, uncomplicated; I25.2 Old myocardial infarction; I10 Essential (primary) hypertension; M51.36 Other intervertebral disc degeneration, lumbar region; M51.37 Other intervertebral disc degeneration, lumbosacral region; M47.816 Spondylosis without myelopathy or radiculopathy, lumbar region; M47.817 Spondylosis without myelopathy or radiculopathy, lumbosacral region; M51.34 Other intervertebral disc degeneration, thoracic region; M47.814 Spondylosis without myelopathy or radiculopathy, thoracic region
CPT/HCPCS: 36415; 80053; 80306; 80307; 81001; 85025; 96361; 96374; 96375; 99283

== ENCOUNTER 2018-02-19 12:38 | Emergency (ER) ==
[2018-02-19 12:46] VITALS: BP 129/86; TEMP 96.6; BMI 19.3
--- NOTE | 2018-02-19 13:52 | ED.PDOC ---
General ED Provider: Dr. ALONDRA KRAFT Chief Complaint: Alcohol/Substance Withdrawal Stated Complaint: interested in alcohol detox program Time Seen by Physician: 12:40 (seen with entire nursing staff on multiple occasion) Mode of Arrival: Walk-In Information Source: Patient Exam Limitations: No limitations (after pain meds were denied by me he decided there is no point to the visit left AMA BUT A FEW MIN LATER RETURNED ) Nursing and Triage Documentation Reviewed and Agree: Yes Does patient meet sepsis criteria?: No System Inflammatory Response Syndrome: Not Applicable Sepsis Protocol: For patient's 13 years and over: Temp is 96.8 and below OR 101 and greater Pulse >90 BPM Resp >20/minute Acutely Altered Mental Status Are patient's symptoms suggestive of a new infection, such as: -Pneumonia -Skin, Soft Tissue -Endocarditis -UTI -Bone, Joint Infection -Implantable Device -Acute Abdominal Infection -Wound Infection -Meningitis -Blood Stream Catheter Infection -Unknown Miscellaneous Complaint Exam - Complex/Multi-System Complaint/Exam Onset/Duration: PT ADMITTS TO ETOH ABUSE WOULD LIKE TO BE DETOXED Symptoms Are: Still present Episodes Lasting: Weeks Initial Severity: Moderate Location of Pain: ABDOMINAL Pain Radiates to: NO Character: CHRONIC PAIN Aggravating: ETOH Alleviating: PAIN MEDS Associated Signs and Symptoms: Denies: Decreased responsiveness, Confusion, Agitation, Dizziness, Weakness, Syncope, Headache, Short of air, Cough, Wheezing , Hemoptysis, Chest pain, Palpitations, Edema, Nausea, Vomiting, Diarrhea, Abdominal pain, Back pain, Dysuria, Hematemesis, Melena, Decreased oral intake, Fever, Diaphoresis, Immunocompromised, Anticoagulation Therapy, Recent medication changes, Indwelling medical collections specialist, Prior MRSA, Prior VRE, Recent trauma, Remote trauma Recent Echo/LV Function: No Respiratory Distress: None JVD Present: No Tachypnea Present: No Stridor Present: No Abdominal Findings: Present: Normal findings Glascow Coma Scale (see protocol): 15 Meningeal Signs Positive: No Focal Weakness: Present: None Focal Sensory Loss: Present: None Gait: Normal (LEFT ED AND RETURNED , LATER LEFT AGAIN) Gag Reflex Present: Yes Babinski Sign: Negative Right, Negative Left Joint Swelling Present: No In-Dwelling Device Present: No Differential Diagnosis: Metabolic Abnormality, Other (CHRONIC PANCERATITIS) Quality Indicators for Cardiac Chest Pain: EKG in 10min. Quality Indicators for AMI: EKG in 10min. Review of Systems - Review Of Systems Constitutional: Reports: Malaise Eyes: Reports: No symptoms Ears, Nose, Mouth, Throat: Reports: No symptoms Respiratory: Reports: No symptoms Cardiac: Reports: No symptoms GI: Reports: Abdominal pain : Reports: No symptoms Musculoskeletal: Reports: No symptoms Skin: Reports: No symptoms Neurological: Reports: No symptoms Endocrine: Reports: No symptoms Hematologic/Lymphatic: Reports: No symptoms All Other Systems: Reviewed and Negative Past Medical History - Past Medical History Previously Healthy: Yes Endocrine: Reports: None Cardiovascular: Reports: [place], Hypertension Respiratory: Reports: None Hematological: Reports: None Gastrointestinal: Reports: Pancreatitis Genitourinary: Reports: None Neuro/Psych: Reports: Anxiety, Other (ALCOHOLIC) Musculoskeletal: Reports: Unknown Cancer: Reports: None Other Pertinent Past Medical History: etoh - Surgical History General Surgical History: Reports: Cholecystectomy, Orthopedic (CARPAL TUNNEL LEFT, hand surgery on left) - Family History Family History: Reports: Unknown - Social History Smoking Status: Current every day smoker, Heavy tobacco smoker Hx Substance Use: No Alcohol Screening: Heavy Physical Exam - Physical Exam Appearance: Well-appearing, No pain distress, Well-nourished Eyes: JOLANTA, EOMI, Conjunctiva clear ENT: Ears normal, Nose normal, Oropharynx normal Respiratory: Airway patent, Breath sounds clear, Breath sounds equal, Respirations nonlabored Cardiovascular: RRR, Pulses normal, No rub, No murmur GI/: Soft, Nontender, No masses, Bowel sounds normal, No Organomegaly Musculoskeletal: Normal strength, ROM intact, No edema, No calf tenderness Skin: Warm, Dry, Normal color Neurological: Sensation intact, Motor intact, Reflexes intact, Cranial nerves intact, Alert, Oriented Psychiatric: Affect appropriate, Mood appropriate Interpretation - Stock Shaper Rate: Normal Rhythm: Sinus Ectopy: None - EKG Interpretation Rate: Normal Rhythm: Sinus Ectopy: None [place]: NL ST Segment: Normal Re-Evaluation - Re-Evaluation Time of Re-Evaluation: 13:00 (KEVON SPOKE TO THE PT PAIN MEDS DECLINED ) Status: Unchanged Vital Signs Stable: Yes Appearance: NAD Lungs: Clear Skin: Warm and Dry Neuro: Alert and Oriented X3 CV: RRR - Re-Evaluation Time of Re-Evaluation: 13:56 (LEFT AMA ) Status: Unchanged Appearance: NAD Skin: Warm and Dry Neuro: Alert and Oriented X3 CV: RRR Critical Care Note - Critical Care Note Total Time (mins): 0 Course - Course Hematology/Chemistry: 02/19/18 13:14 02/19/18 13:14 Orders, Labs, Meds: Lab Review 02/19/18 02/19/18 02/19/18 13:14 13:14 13:14 WBC 5.73 RBC 4.40 L Hgb 14.8 Hct 43.2 MCV 98.2 H MCH 33.6 H MCHC 34.3 RDW Coeff of Reginaldo 14.2 Plt Count 185 Immature Gran % (Auto) 0.2 Neut % (Auto) 55.1 Lymph % (Auto) 26.9 [place] % (Auto) 15.4 H Eos % (Auto) 1.7 Baso % (Auto) 0.7 Immature Gran # (Auto) 0.0 Neut # (Auto) 3.2 Lymph # (Auto) 1.5 [place] # (Auto) 0.9 Eos # (Auto) 0.1 Baso # (Auto) 0.0 Sodium 139.6 Potassium 4.11 Chloride 99.1 Carbon Dioxide 32.5 H Anion Gap 12.11 BUN 4.1 L Creatinine 0.74 Estimated GFR (MDRD) 113.00 BUN/Creatinine Ratio 5.54 Glucose 112.9 H Calcium 8.82 Total Bilirubin 0.11 L AST 67.3 H ALT 19.5 Alkaline Phosphatase 97.7 Total Protein 7.45 Albumin 4.33 Globulin 3.12 Albumin/Globulin Ratio 1.38 Urine Color Light Urine Clarity Clear Urine pH 6.0 Ur Specific [place] <=1.005 Urine Protein Negative Urine Glucose (UA) Negative Urine Ketones Negative Urine Blood Negative Urine Nitrite Negative Urine Bilirubin Negative Urine Urobilinogen 0.2 Ur Leukocyte Esterase Negative Salicylate Level mg/dL < 1.00 Acetaminophen < 10.0 L Plasma/Serum Alcohol 299.8 H Orders Category Date Time Status EKG-(ED ONLY) Stat CARDIO 02/19/18 12:59 Completed ED BUZZSAW OPERATOR HELPER APPLIED ONCE EMERGENCY 02/19/18 12:59 Active ACETAMINOPHEN Stat LAB 02/19/18 13:14 Completed BLOOD ALCOHOL Stat LAB 02/19/18 13:14 Completed CBC W/ AUTO DIFF Stat LAB 02/19/18 13:14 Completed COMPREHENSIVE METABOLIC PANEL Stat LAB 02/19/18 13:14 Completed DRUG SCREEN, URINE, RAPID Stat LAB 02/19/18 13:14 Received SALICYLATE Stat LAB 02/19/18 13:14 Completed URINALYSIS C & S IF INDICATED Stat LAB 02/19/18 13:14 Completed Vital Signs: Temp Pulse Resp BP Pulse Ox 02/19/18 12:39 96.6 F L 95 H 20 129/86 95 Departure - Departure Time of Disposition: 13:59 (ROBBIN PRESENT AT ALL TIMES , PT WAS NOT TACHYCARDIC , ABLE TO UNDERSTAND FULLY WELL THE RISKS , LEFT AMA) Disposition: AMA Discharge Problem: Alcohol abuse Alcohol intoxication Qualifiers: Complication of substance-induced condition: uncomplicated Qualified Code(s): F10.920 - Alcohol use, unspecified with intoxication, uncomplicated Instructions: Alcohol Dependence (ED), Alcohol Use Disorder (ED) Condition: Good Pt referred to PMD for follow-up: Yes IPMP verified?: No Additional Instructions: Please call your Family Physician as soon as possible to schedule a follow-up appointment. Allergies/Adverse Reactions: Allergies No Known Allergies Allergy (Verified 02/19/18 12:50) Home Medications: Ambulatory Orders 1 [No Reported Medications] 02/19/18
== END 2018-02-19 13:45 | disposition left against medical advice (07) ==
LOC: ED 12:38
DX: F10.920 Alcohol use, unspecified with intoxication, uncomplicated (principal); R10.9 Unspecified abdominal pain; G89.29 Other chronic pain; K86.1 Other chronic pancreatitis; I25.2 Old myocardial infarction; I10 Essential (primary) hypertension; F17.210 Nicotine dependence, cigarettes, uncomplicated
CPT/HCPCS: 36415; 80053; 80306; 80307; 81001; 85025; 93005; 93010; 99284

== ENCOUNTER 2018-02-19 19:30 | Outpatient (CLI) ==
[2012-11-07 13:18] VITALS: TEMP 97.6
[2018-02-19 19:51] VITALS: BMI 18.7
== END 2018-02-19 19:31 | disposition home or self-care (01) ==
LOC: AMBL 19:30
PROVIDERS: ATTEND Family Medicine
DX: R10.12 Left upper quadrant pain (principal); K85.90 Acute pancreatitis without necrosis or infection, unspecified; F10.10 Alcohol abuse, uncomplicated

== ENCOUNTER 2018-02-19 19:44 | Emergency (ER) ==
[2018-02-19] MEDS ORDERED: PHENERGAN 25 MG/ML VIAL IM STA (19:47)
[2018-02-19] MEDS ORDERED: DEMEROL 50 MG/ML VIAL IM STA (19:47)
[2018-02-19] MEDS ORDERED: DEMEROL 50 MG/ML SYRINGE ONE (19:50)
[2018-02-19 19:51] VITALS: BMI 18.7
[2018-02-19] MEDS ORDERED: BENADRYL IM STA (20:37)
[2018-02-19] MEDS ORDERED: DILAUDID 1 MG/ML SYRINGE IM STA ×2 (20:37→21:54)
--- NOTE | 2018-02-19 21:05 | CT ---
EXAM: CT of the abdomen and pelvis without contrast. HISTORY: Abdominal pain. History of pancreatitis. PROCEDURE: Contiguous axial CT images of the abdomen and pelvis without contrast with coronal and sa gittal reformats. FINDINGS: Comparison made with CT of 01/25/2018. The exam is limited without IV contrast. There is mo tion artifact which limits the exam. The liver is normal in appearance. The gallbladder is surgicall y absent. There are calcifications in the pancreas consistent with chronic pancreatitis. No CT evide nce of acute pancreatitis. There is an interval decrease in size of a fluid density cyst in the tail of the pancreas measuring 2.9 x 2 cm compared to 3.1 x 4.4 cm on the prior CT. There is stable dila tation of the pancreatic duct which measures 7 mm in diameter. The spleen, adrenal glands and kidneys are normal in appearance. The abdominal aorta is within normal limits in diameter. There is fecal s tasis in the small bowel and colon. No bowel obstruction. The appendix is normal in appearance. The re is diverticulosis of the colon with no evidence of diverticulitis. No free fluid or free air in th e abdomen or pelvis. The bladder is is distended. The seminal vesicles and prostate gland are unremar kable. There are degenerative changes in the spine. Impression: Chronic pancreatitis as described. No CT evidence of acute pancreatitis. Recommend kami elation with amylase and lipase levels if clinically indicated. Stable dilatation of the pancreatic duct as described. Interval decrease in size of 2.9 x 2 cm fluid density cyst in the tail of the pancreas, consistent wi th a pseudocyst. Fecal stasis in the small bowel and colon. Distended bladder. Cholecystectomy.
--- NOTE | 2018-02-19 22:43 | ED.PDOC ---
General ED Provider: Dr. LICHA MICHAEL-ER Chief Complaint: Abdominal Pain Stated Complaint: i hurt Time Seen by Physician: 19:55 Mode of Arrival: Ambulance Information Source: Patient, EMT Exam Limitations: No limitations Nursing and Triage Documentation Reviewed and Agree: Yes Does patient meet sepsis criteria?: No System Inflammatory Response Syndrome: Not Applicable Sepsis Protocol: For patient's 13 years and over: Temp is 96.8 and below OR 101 and greater Pulse >90 BPM Resp >20/minute Acutely Altered Mental Status Are patient's symptoms suggestive of a new infection, such as: -Pneumonia -Skin, Soft Tissue -Endocarditis -UTI -Bone, Joint Infection -Implantable Device -Acute Abdominal Infection -Wound Infection -Meningitis -Blood Stream Catheter Infection -Unknown GI Complaint Exam - Abdominal Pain Complaint/Exam Onset: Gradual Duration: several hours Symptoms Are: Still present Timing: Constant Initial Severity: Mild Current Severity: Moderate Location of Pain: Diffuse Character: Reports: Dull Related History: Reports: Similar episode Differential Diagnoses: Constipation, Diverticulitis Review of Systems - Review Of Systems Constitutional: Reports: No symptoms Eyes: Reports: No symptoms Ears, Nose, Mouth, Throat: Reports: No symptoms Respiratory: Reports: No symptoms Cardiac: Reports: No symptoms GI: Reports: Abdominal pain : Reports: No symptoms Musculoskeletal: Reports: No symptoms Skin: Reports: No symptoms Neurological: Reports: No symptoms Endocrine: Reports: No symptoms Hematologic/Lymphatic: Reports: No symptoms All Other Systems: Reviewed and Negative Past Medical History - Past Medical History Previously Healthy: Yes Endocrine: Reports: None Cardiovascular: Reports: [place], Hypertension Respiratory: Reports: None Hematological: Reports: None Gastrointestinal: Reports: Pancreatitis Genitourinary: Reports: None Neuro/Psych: Reports: Anxiety, Other (ALCOHOLIC) Musculoskeletal: Reports: Unknown Cancer: Reports: None Other Pertinent Past Medical History: etoh - Surgical History General Surgical History: Reports: Cholecystectomy, Orthopedic (CARPAL TUNNEL LEFT, hand surgery on left) - Family History Family History: Reports: Unknown - Social History Smoking Status: Current every day smoker, Heavy tobacco smoker Hx Substance Use: Yes Alcohol Screening: Heavy - Immunizations Tetanus Shot up to Date: Yes Physical Exam - Physical Exam Appearance: Well-appearing, No pain distress, Well-nourished Eyes: JOLANTA ENT: Ears normal, Nose normal, Oropharynx normal Neck: Supple Respiratory: Airway patent Cardiovascular: RRR, Pulses normal, No rub, No murmur GI/: Soft, Nontender, No masses, Bowel sounds normal, No Organomegaly Musculoskeletal: Normal strength, ROM intact, No edema, No calf tenderness Skin: Warm, Dry, Normal color Neurological: Sensation intact Psychiatric: Affect appropriate, Mood appropriate Interpretation - Radiology Interpretation Radiology Interpretation By: Radiologist Radiology Results: Negative Exam Interpreted: CT Scan - EKG Interpretation Time of EKG #1: 22:42 Rate: Normal Rhythm: Sinus Ectopy: None [place]: NL ST Segment: Normal Interpretation: nsr Re-Evaluation - Re-Evaluation Time of Re-Evaluation: 22:43 Status: Improved Vital Signs Stable: Yes Pain Level: 0 Appearance: NAD Lungs: Clear Skin: Warm and Dry Neuro: Alert and Oriented X3 CV: RRR Critical Care Note - Critical Care Note Total Time (mins): 0 Course - Course Hematology/Chemistry: 02/19/18 20:23 02/19/18 20:23 Orders, Labs, Meds: Lab Review 02/19/18 02/19/18 02/19/18 20:00 20:00 20:23 WBC 5.67 RBC 4.61 L Hgb 15.7 Hct 45.3 MCV 98.3 H MCH 34.1 H MCHC 34.7 RDW Coeff of Reginaldo 14.2 Plt Count 207 Immature Gran % (Auto) 0.4 Neut % (Auto) 44.7 Lymph % (Auto) 37.4 [place] % (Auto) 15.2 H Eos % (Auto) 1.8 Baso % (Auto) 0.5 Immature Gran # (Auto) 0.0 Neut # (Auto) 2.5 Lymph # (Auto) 2.1 [place] # (Auto) 0.9 Eos # (Auto) 0.1 Baso # (Auto) 0.0 ESR 6 Sodium Potassium Chloride Carbon Dioxide Anion Gap BUN Creatinine Estimated GFR (MDRD) BUN/Creatinine Ratio Glucose Calcium Total Bilirubin AST ALT Alkaline Phosphatase Total Creatine Kinase CK-MB (CK-2) CK-MB (CK-2) % Troponin I Total Protein Albumin Globulin Albumin/Globulin Ratio Amylase Lipase Urine Color Yellow Urine Clarity Clear Urine pH 6.0 Ur Specific [place] 1.010 Urine Protein Negative Urine Glucose (UA) Negative Urine Ketones Negative Urine Blood Negative Urine Nitrite Negative Urine Bilirubin Negative Urine Urobilinogen 0.2 Ur Leukocyte Esterase Negative Urine Opiates Screen Negative Ur Oxycodone Screen Negative Urine Methadone Screen Negative Ur Propoxyphene Screen Negative Ur Barbiturates Screen Negative U Tricyclic Antidepress Negative Ur Phencyclidine Scrn Negative Ur Amphetamine Screen Negative U Methamphetamines Scrn Negative U Benzodiazepines Scrn Negative Urine Cocaine Screen Negative U Cannabinoids Screen Negative Plasma/Serum Alcohol 02/19/18 20:23 WBC RBC Hgb Hct MCV MCH MCHC RDW Coeff of Reginaldo Plt Count Immature Gran % (Auto) Neut % (Auto) Lymph % (Auto) [place] % (Auto) Eos % (Auto) Baso % (Auto) Immature Gran # (Auto) Neut # (Auto) Lymph # (Auto) [place] # (Auto) Eos # (Auto) Baso # (Auto) ESR Sodium 141.5 Potassium 4.26 Chloride 99.9 Carbon Dioxide 33.5 H Anion Gap 12.36 BUN 6.6 L Creatinine 0.77 Estimated GFR (MDRD) 108.00 BUN/Creatinine Ratio 8.57 Glucose 110.7 H Calcium 9.18 Total Bilirubin 0.20 AST 66.3 H ALT 20.0 Alkaline Phosphatase 97.5 Total Creatine Kinase 276.8 H CK-MB (CK-2) 1.640 CK-MB (CK-2) % 0.5900 Troponin I 0.016 Total Protein 8.02 Albumin 4.60 Globulin 3.42 Albumin/Globulin Ratio 1.34 Amylase 85.3 Lipase 88.0 Urine Color Urine Clarity Urine pH Ur Specific [place] Urine Protein Urine Glucose (UA) Urine Ketones Urine Blood Urine Nitrite Urine Bilirubin Urine Urobilinogen Ur Leukocyte Esterase Urine Opiates Screen Ur Oxycodone Screen Urine Methadone Screen Ur Propoxyphene Screen Ur Barbiturates Screen U Tricyclic Antidepress Ur Phencyclidine Scrn Ur Amphetamine Screen U Methamphetamines Scrn U Benzodiazepines Scrn Urine Cocaine Screen U Cannabinoids Screen Plasma/Serum Alcohol 286.1 H Orders Category Date Time Status EKG-(ED ONLY) Stat CARDIO 02/19/18 19:45 Completed AMYLASE Stat LAB 02/19/18 20:23 Completed BLOOD ALCOHOL Stat LAB 02/19/18 20:23 Completed CBC W/ AUTO DIFF Stat LAB 02/19/18 20:23 Completed COMPREHENSIVE METABOLIC PANEL Stat LAB 02/19/18 20:23 Completed CREATINE KINASE Stat LAB 02/19/18 20:23 Completed ESR Stat LAB 02/19/18 20:23 Completed LIPASE Stat LAB 02/19/18 20:23 Completed TROPONIN I Stat LAB 02/19/18 20:23 Completed URINALYSIS C & S IF INDICATED Stat LAB 02/19/18 20:00 Completed URINE DRUG SCREEN (RAPID FOR ED) [DRUG SCREEN, URINE, LAB 02/19/18 20:00 Completed RAPID] Stat Diphenhydramine Inj [Benadryl] MEDS 02/19/18 20:37 Discontinued 50 mg IM ONCE STA Hydromorphone HCl [Dilaudid 1 mg/ml Syringe] MEDS 02/19/18 20:37 Discontinued 1 mg IM ONCE STA Hydromorphone HCl [Dilaudid 1 mg/ml Syringe] MEDS 02/19/18 21:54 Discontinued 1 mg IM ONCE STA Meperidine HCl/Pf [Demerol 50 mg/ml Syringe] MEDS 02/19/18 19:50 Discontinued 50 mg .ROUTE .STK-MED ONE Meperidine HCl/Pf [Demerol 50 mg/ml Vial] MEDS 02/19/18 19:47 Discontinued 50 mg IM ONCE STA Promethazine HCl [Phenergan 25 mg/ml Vial] MEDS 02/19/18 19:47 Discontinued 25 mg IM ONCE STA CT ABDOMEN/PELVIS WO CONTRAST Stat RADS 02/19/18 19:46 Completed Medications Discontinued Medications Generic Name Dose Route Start Last Admin Trade Name Freq PRN Reason Stop Dose Admin Diphenhydramine HCl 50 mg 02/19/18 20:37 02/19/18 20:41 Benadryl IM 02/19/18 20:38 50 mg ONCE STA Administration Hydromorphone HCl 1 mg 02/19/18 20:37 02/19/18 20:41 Dilaudid 1 Mg/Ml Syringe IM 02/19/18 20:38 1 mg ONCE STA Administration Hydromorphone HCl 1 mg 02/19/18 21:54 02/19/18 21:54 Dilaudid 1 Mg/Ml Syringe IM 02/19/18 21:55 1 mg ONCE STA Administration Meperidine HCl 50 mg 02/19/18 19:47 02/19/18 19:53 Demerol 50 Mg/Ml Vial IM 02/19/18 19:48 Not Given ONCE STA Promethazine HCl 25 mg 02/19/18 19:47 02/19/18 19:53 Phenergan 25 Mg/Ml Vial IM 02/19/18 19:48 25 mg ONCE STA Administration Vital Signs: Temp Pulse Resp BP Pulse Ox 02/19/18 19:45 98.4 F 110 H 24 152/96 H 96 Departure - Departure Time of Disposition: 22:43 Disposition: HOME SELF-CARE Discharge Problem: Abdominal pain Instructions: Acute Abdominal Pain (ED) Condition: Fair Pt referred to PMD for follow-up: Yes IPMP verified?: No Additional Instructions: return prn Allergies/Adverse Reactions: Allergies No Known Allergies Allergy (Verified 02/19/18 12:50) Home Medications: Ambulatory Orders 1 [No Reported Medications] 02/19/18 Disposition Discussed With: Patient
[2018-02-19 22:44] VITALS: BP 138/92; TEMP 98
== END 2018-02-19 22:50 | disposition home or self-care (01) ==
LOC: ED 19:44
DX: R10.9 Unspecified abdominal pain (principal); I10 Essential (primary) hypertension; I25.2 Old myocardial infarction; Z87.19 Personal history of other diseases of the digestive system; F17.210 Nicotine dependence, cigarettes, uncomplicated
CPT/HCPCS: 36415; 80053; 80306; 80307; 81001; 82150; 82550; 82553; 83690; 84484; 85025; 85651; 93005; 93010; 96372; 99284

== ENCOUNTER 2018-02-23 13:42 | Outpatient (CLI) ==
[2012-11-07 13:18] VITALS: TEMP 97.6
[2018-02-23 13:53] VITALS: BMI 18.7
== END 2018-02-23 13:49 | disposition critical access hospital (66) ==
LOC: AMBL 13:42
PROVIDERS: ATTEND Emergency Medicine
DX: F41.9 Anxiety disorder, unspecified (principal); F10.239 Alcohol dependence with withdrawal, unspecified

== ENCOUNTER 2018-02-23 13:52 | Emergency (ER) ==
[2018-02-23 13:53] VITALS: BMI 18.7
[2018-02-23 14:04] VITALS: BP 162/98; TEMP 97
[2018-02-23] MEDS ORDERED: PHENERGAN 25 MG/ML VIAL IM STA (14:11)
[2018-02-23] MEDS ORDERED: VISTARIL INJ IM STA (14:11)
[2018-02-23] MEDS ORDERED: SODIUM CHLORIDE 1,000 ML IV STA (14:15)
--- NOTE | 2018-02-23 14:16 | ED.PDOC ---
General ED Provider: Dr. LICHA RAY Chief Complaint: Behavioral Complaint Stated Complaint: I am anxious and can't breath Time Seen by Physician: 14:10 Mode of Arrival: Ambulance Information Source: Patient Sepsis Protocol: For patient's 13 years and over: Temp is 96.8 and below OR 101 and greater Pulse >90 BPM Resp >20/minute Acutely Altered Mental Status Are patient's symptoms suggestive of a new infection, such as: -Pneumonia -Skin, Soft Tissue -Endocarditis -UTI -Bone, Joint Infection -Implantable Device -Acute Abdominal Infection -Wound Infection -Meningitis -Blood Stream Catheter Infection -Unknown Past Medical History - Past Medical History Previously Healthy: Yes Endocrine: Reports: None Cardiovascular: Reports: [place], Hypertension Respiratory: Reports: None Hematological: Reports: None Gastrointestinal: Reports: Pancreatitis Genitourinary: Reports: None Neuro/Psych: Reports: Anxiety, Other (ALCOHOLIC) Musculoskeletal: Reports: Unknown Cancer: Reports: None Other Pertinent Past Medical History: etoh - Surgical History General Surgical History: Reports: Cholecystectomy, Orthopedic (CARPAL TUNNEL LEFT, hand surgery on left) - Family History Family History: Reports: Unknown - Social History Smoking Status: Current every day smoker, Heavy tobacco smoker Hx Substance Use: Yes Alcohol Screening: Heavy Course - Course Hematology/Chemistry: 02/23/18 14:31 02/23/18 14:31 Orders, Labs, Meds: Lab Review 02/23/18 02/23/18 02/23/18 14:31 14:31 14:31 WBC 5.23 RBC 5.17 Hgb 17.5 Hct 48.9 MCV 94.6 H MCH 33.8 H MCHC 35.8 H RDW Coeff of Reginaldo 13.2 Plt Count 140 Immature Gran % (Auto) 0.2 Neut % (Auto) 55.4 Lymph % (Auto) 33.5 [place] % (Auto) 9.4 Eos % (Auto) 1.1 Baso % (Auto) 0.4 Immature Gran # (Auto) 0.0 Neut # (Auto) 2.9 Lymph # (Auto) 1.8 [place] # (Auto) 0.5 Eos # (Auto) 0.1 Baso # (Auto) 0.0 Sodium 134.7 L Potassium 4.29 Chloride 101.8 Carbon Dioxide 20.3 L Anion Gap 16.89 BUN 5.3 L Creatinine 0.70 Estimated GFR (MDRD) 120.00 BUN/Creatinine Ratio 7.57 Glucose 99.5 Calcium 9.35 Total Bilirubin 0.49 AST 56.1 ALT 29.8 Alkaline Phosphatase 115.9 Ammonia 14.0 Troponin I < 0.012 Total Protein 8.27 H Albumin 4.71 Globulin 3.56 Albumin/Globulin Ratio 1.32 Lipase 02/23/18 14:31 WBC RBC Hgb Hct MCV MCH MCHC RDW Coeff of Reginaldo Plt Count Immature Gran % (Auto) Neut % (Auto) Lymph % (Auto) [place] % (Auto) Eos % (Auto) Baso % (Auto) Immature Gran # (Auto) Neut # (Auto) Lymph # (Auto) [place] # (Auto) Eos # (Auto) Baso # (Auto) Sodium Potassium Chloride Carbon Dioxide Anion Gap BUN Creatinine Estimated GFR (MDRD) BUN/Creatinine Ratio Glucose Calcium Total Bilirubin AST ALT Alkaline Phosphatase Ammonia Troponin I Total Protein Albumin Globulin Albumin/Globulin Ratio Lipase 114.8 Orders Category Date Time Status IV [ED IV/MEDIPORT/POWERPORT] .ONCE EMERGENCY 02/23/18 14:13 Active AMMONIA Stat LAB 02/23/18 14:31 Completed CBC W/ AUTO DIFF Stat LAB 02/23/18 14:31 Completed CMP [COMPREHENSIVE METABOLIC PANEL] Stat LAB 02/23/18 14:31 Completed LIPASE Stat LAB 02/23/18 14:31 Completed TROPONIN I Stat LAB 02/23/18 14:31 Completed UA [URINALYSIS C & S IF INDICATED] Stat LAB 02/23/18 14:13 Uncollected 0.9 % Sodium Chloride [Saline Flush] MEDS 02/23/18 14:13 Ordered 1 syr IVF PRN PRN Hydromorphone HCl [Dilaudid 1 mg/ml Syringe] MEDS 02/23/18 15:34 Discontinued 1 mg IM ONCE STA Hydroxyzine HCl [Vistaril Inj] MEDS 02/23/18 14:11 Discontinued 50 mg IM ONCE STA Lorazepam [Ativan] MEDS 02/23/18 15:34 Discontinued 1 mg IM ONCE STA Promethazine HCl [Phenergan 25 mg/ml Vial] MEDS 02/23/18 14:11 Discontinued 25 mg IM ONCE STA Sodium Chloride 0.9% [Sodium Chloride] 1,000 ml MEDS 02/23/18 14:15 Discontinued IV BOLUS Medications Generic Name Dose Route Start Last Admin Trade Name Freq PRN Reason Stop Dose Admin Sodium Chloride 1 syr 02/23/18 14:13 02/23/18 14:39 Saline Flush IVF 1 syr PRN PRN Administration To flush IV Discontinued Medications Generic Name Dose Route Start Last Admin Trade Name Stu PRN Reason Stop Dose Admin Hydromorphone HCl 1 mg 02/23/18 15:34 02/23/18 16:00 Dilaudid 1 Mg/Ml Syringe IM 02/23/18 15:35 1 mg ONCE STA Administration Hydroxyzine HCl 50 mg 02/23/18 14:11 02/23/18 14:19 Vistaril Inj IM 02/23/18 14:12 50 mg ONCE STA Administration Sodium Chloride 1,000 mls @ 1,000 mls/hr 02/23/18 14:15 02/23/18 14:39 Sodium Chloride IV 02/23/18 15:14 1,000 mls/hr BOLUS STA Administration Lorazepam 1 mg 02/23/18 15:34 02/23/18 16:00 Ativan IM 02/23/18 15:35 1 mg ONCE STA Administration Promethazine HCl 25 mg 02/23/18 14:11 02/23/18 14:20 Phenergan 25 Mg/Ml Vial IM 02/23/18 14:12 25 mg ONCE STA Administration Vital Signs: Temp Pulse Resp BP Pulse Ox 02/23/18 13:54 97.0 F L 119 H 40 H 162/98 H 98 Departure - Departure Time of Disposition: 16:00 Disposition: HOME SELF-CARE Discharge Problem: Anxiety, Chronic pancreatitis Instructions: Mood Disorders (ED) Condition: Fair Pt referred to PMD for follow-up: Yes IPMP verified?: No Additional Instructions: Remain on current meds Stop drinking alcohol Allergies/Adverse Reactions: Allergies No Known Allergies Allergy (Verified 02/19/18 12:50) Home Medications: Ambulatory Orders Hydroxyzine HCl 10 mg PO 3-4XD PRN #20 tablet 02/23/18 Disposition Discussed With: Patient
[2018-02-23] MEDS ORDERED: ATIVAN IM STA (15:34)
[2018-02-23] MEDS ORDERED: DILAUDID 1 MG/ML SYRINGE IM STA (15:34)
== END 2018-02-23 16:31 | disposition home or self-care (01) ==
LOC: ED 13:52
DX: F41.9 Anxiety disorder, unspecified (principal); R06.02 Shortness of breath; K86.1 Other chronic pancreatitis
CPT/HCPCS: 36415; 80053; 82140; 83690; 84484; 85025; 96360; 96372; 99283

== ENCOUNTER 2018-05-22 15:47 | Emergency (ER) ==
[2018-05-22 15:50] VITALS: TEMP 96.8; BMI 19.3
--- NOTE | 2018-05-22 16:12 | ED.PDOC ---
General ED Provider: Dr. LICHA RAY Chief Complaint: Abdominal Pain Stated Complaint: LEFT SIDED ABDOMINAL PAIN. Onset yesterday with progressive worsening. Hx Pancreatitis and pseudocyst. States was told by PCP that pseudocyst and chronic pancreatitis was causing his pain. Denies chest pain or dyspnea. States feeling very anxious . Concerned about pseudocyst. Time Seen by Physician: 16:05 Mode of Arrival: Walk-In Information Source: Patient Exam Limitations: No limitations Primary Care Provider: MISSY GUERRIER Referred to ED by: PCP Nursing and Triage Documentation Reviewed and Agree: Yes Does patient meet sepsis criteria?: No System Inflammatory Response Syndrome: Pulse >90 BPM, Not Applicable Sepsis Protocol: For patient's 13 years and over: Temp is 96.8 and below OR 101 and greater Pulse >90 BPM Resp >20/minute Acutely Altered Mental Status Are patient's symptoms suggestive of a new infection, such as: -Pneumonia -Skin, Soft Tissue -Endocarditis -UTI -Bone, Joint Infection -Implantable Device -Acute Abdominal Infection -Wound Infection -Meningitis -Blood Stream Catheter Infection -Unknown GI Complaint Exam - Abdominal Pain Complaint/Exam Onset: Gradual Duration: 1 day Symptoms Are: Still present Timing: Constant Initial Severity: Moderate Current Severity: Moderate Location of Pain: LUQ Radiates To: Reports: Back. Denies: Chest Character: Reports: Sharp, Aching Aggravating: Reports: None Alleviating: Reports: Rest Associated Signs and Symptoms: Denies: Diaphoresis, Fever, Cough, Chest pain, Dizziness, Back pain, Constipation, Blood in stool, Dysuria, Urinary frequency, Decreased urine output, Decreased appetite, Discharge, Nausea, Vomiting, Diarrhea, Decreased activity Related History: Reports: Similar episode AAA Risk Factors: Reports: None Cardiac Risk Factors: Reports: None Testicular Torsion Risk Factors: Reports: None Surgical Obstruction Risk Factors: Reports: None Related Surgical History: Reports: None Abdominal Findings: Present: None Genitalia Exam: Absent: Normal findings Rectal Exam: Absent: Normal Findings Differential Diagnoses: Gastroenteritis, Pancreatitis, Renal Colic, Ureteral Stone Review of Systems - Review Of Systems Constitutional: Reports: No symptoms, Loss of appetite Ears, Nose, Mouth, Throat: Reports: No symptoms Respiratory: Reports: No symptoms Cardiac: Reports: No symptoms GI: Reports: Nausea, Poor appetite, Vomiting : Reports: No symptoms Musculoskeletal: Reports: No symptoms Skin: Reports: No symptoms Neurological: Reports: No symptoms Endocrine: Reports: No symptoms Hematologic/Lymphatic: Reports: No symptoms All Other Systems: Reviewed and Negative Past Medical History - Past Medical History Previously Healthy: Yes Endocrine: Reports: None Cardiovascular: Reports: [place], Hypertension Respiratory: Reports: None Hematological: Reports: None Gastrointestinal: Reports: Pancreatitis Genitourinary: Reports: None Neuro/Psych: Reports: Anxiety, Other (ALCOHOLIC) Musculoskeletal: Reports: Unknown Cancer: Reports: None Other Pertinent Past Medical History: etoh - Surgical History General Surgical History: Reports: Cholecystectomy, Orthopedic (CARPAL TUNNEL LEFT, hand surgery on left) - Family History Family History: Reports: Unknown - Social History Smoking Status: Current every day smoker, Heavy tobacco smoker Hx Substance Use: Yes Alcohol Screening: Heavy - Immunizations Tetanus Shot up to Date: No Physical Exam - Physical Exam Appearance: Ill-appearing, Well-nourished Ill-appearing: Mild Pain Distress: Moderate Eyes: JOLANTA, EOMI, Conjunctiva clear ENT: Ears normal, Nose normal, Oropharynx normal Neck: Supple Respiratory: Airway patent, Breath sounds clear, Breath sounds equal, Respirations nonlabored Cardiovascular: RRR, Pulses normal, No rub, No murmur GI/: Soft, No masses, Bowel sounds normal, No Organomegaly, Tender (LUQ without guarding or rebound) Musculoskeletal: Normal strength, ROM intact, No edema, No calf tenderness Skin: Warm, Dry, Normal color Neurological: Sensation intact, Motor intact, Reflexes intact, Cranial nerves intact, Alert, Oriented Psychiatric: Affect appropriate, Mood appropriate Critical Care Note - Critical Care Note Total Time (mins): 60 Course - Course Hematology/Chemistry: 05/22/18 16:24 05/22/18 16:24 Orders, Labs, Meds: Lab Review 05/22/18 05/22/18 16:24 16:24 WBC 7.74 RBC 4.75 Hgb 15.9 Hct 46.9 MCV 98.7 H MCH 33.5 H MCHC 33.9 RDW Coeff of Reginaldo 13.8 Plt Count 303 Immature Gran % (Auto) 0.3 Neut % (Auto) 59.6 Lymph % (Auto) 25.8 [place] % (Auto) 11.8 H Eos % (Auto) 1.6 Baso % (Auto) 0.9 Immature Gran # (Auto) 0.0 Neut # (Auto) 4.6 Lymph # (Auto) 2.0 [place] # (Auto) 0.9 Eos # (Auto) 0.1 Baso # (Auto) 0.1 Sodium 133.9 L Potassium 4.03 Chloride 97.4 L Carbon Dioxide 29.0 Anion Gap 11.53 BUN 4.7 L Creatinine 0.48 L Estimated GFR (MDRD) 186.00 BUN/Creatinine Ratio 9.79 Glucose 120.5 H Calcium 9.42 Total Bilirubin 0.53 AST 35.6 ALT 22.1 Alkaline Phosphatase 119.5 Total Protein 8.29 H Albumin 4.72 Globulin 3.57 Albumin/Globulin Ratio 1.32 Amylase 79.7 Lipase 44.9 Orders Category Date Time Status IV [ED IV/MEDIPORT/POWERPORT] .ONCE EMERGENCY 05/22/18 16:13 Active AMYLASE Stat LAB 05/22/18 16:24 Completed CBC W/ AUTO DIFF Stat LAB 05/22/18 16:24 Completed CMP [COMPREHENSIVE METABOLIC PANEL] Stat LAB 05/22/18 16:24 Completed LIPASE Stat LAB 05/22/18 16:24 Completed URINE DRUG SCREEN (RAPID FOR ED) [DRUG SCREEN, URINE, LAB 05/22/18 17:54 Received RAPID] Stat 0.9 % Sodium Chloride [Saline Flush] MEDS 05/22/18 16:13 Active 1 syr IVF PRN PRN Dexamethasone 4 mg/ml Inj [Decadron 4 mg/ml Sdv] MEDS 05/22/18 16:16 Discontinued 4 mg IVP ONCE STA Ketorolac Tromethamine [Toradol] MEDS 05/22/18 17:35 Discontinued 30 mg IVP ONCE STA Promethazine HCl [Phenergan 25 mg/ml Vial] MEDS 05/22/18 16:14 Discontinued 25 mg IM ONCE STA Sodium Chloride 0.9% [Sodium Chloride] 1,000 ml MEDS 05/22/18 16:[address] ABDOMEN/PELVIS WO CONTRAST Stat RADS 05/22/18 16:20 Completed Medications Generic Name Dose Route Start Last Admin Trade Name Freq PRN Reason Stop Dose Admin Sodium Chloride 1 syr 05/22/18 16:13 05/22/18 16:51 Saline Flush IVF 1 syr PRN PRN Administration To flush IV Discontinued Medications Generic Name Dose Route Start Last Admin Trade Name Freq PRN Reason Stop Dose Admin Dexamethasone Sodium Phosphate 4 mg 05/22/18 16:16 05/22/18 16:51 Decadron 4 Mg/Ml Sdv IVP 05/22/18 16:17 4 mg ONCE STA Administration Sodium Chloride 1,000 mls @ 1,000 mls/hr 05/22/18 16:14 05/22/18 16:51 Sodium Chloride IV 05/22/18 17:13 1,000 mls/hr BOLUS STA Administration Ketorolac Tromethamine 30 mg 05/22/18 17:35 05/22/18 17:54 Toradol IVP 05/22/18 17:36 30 mg ONCE STA Administration Promethazine HCl 25 mg 05/22/18 16:14 05/22/18 16:51 Phenergan 25 Mg/Ml Vial IM 05/22/18 16:15 25 mg ONCE STA Administration Vital Signs: Temp Pulse Resp BP Pulse Ox 05/22/18 17:53 185/97 H 05/22/18 15:47 96.8 F L 97 H 18 194/119 H 96 Departure - Departure Time of Disposition: 17:45 Disposition: HOME SELF-CARE Discharge Problem: Chronic pancreatitis, Pancreatic pseudocyst, Vomiting, Dehydration Instructions: Pancreatitis (ED), Chronic Hypertension (ED) Condition: Good Pt referred to PMD for follow-up: Yes (Dr Tristan in 1 week) IPMP verified?: No Additional Instructions: Maintain good hydration Take maintainance meds Use meds for nausea and vomiting as needed. Allergies/Adverse Reactions: Allergies No Known Allergies Allergy (Verified 05/22/18 15:50) Home Medications: Ambulatory Orders Famotidine [Pepcid AC] 20 mg PO DAILY #14 tablet 05/22/18 Ondansetron [Zofran Odt] 4 mg PO Q8H PRN #10 tab.rapdis 05/22/18 Disposition Discussed With: Patient
[2018-05-22] MEDS ORDERED: SODIUM CHLORIDE 1,000 ML IV STA (16:14)
[2018-05-22] MEDS ORDERED: PHENERGAN 25 MG/ML VIAL IM STA (16:14)
[2018-05-22] MEDS ORDERED: DECADRON 4 MG/ML SDV IVP STA (16:16)
--- NOTE | 2018-05-22 16:56 | CT ---
EXAM: CT of the abdomen and pelvis without contrast History: Left upper quadrant abdominal pain. Comparison: CT abdomen pelvis 02/19/2018 Technique: Multiplanar CT images through the abdomen pelvis were obtained without the administration of IV contrast. Findings: Lung bases are free of consolidation. No acute osseous abnormalities. Status post cholecystectomy. Calcified granulomas seen within the spleen. Atherosclerotic vascular calcifications. No focal liver lesions. Pancreatic calcifications again identified. A pseudocyst w ithin the pancreatic body now measures 2.7 cm x 1.8 cm and previously measured 2.9 cm x 2.0 cm. There is mild stranding adjacent to the pancreatic tail and thickening of the left anterior pararenal fasc ia. No renal stones and no hydronephrosis. Seen on coronal image number 66 there is a 1.9 cm exophy tic lesion or area of inflammation of the lateral left kidney mid pole which was not seen on the prio r study. The appendix is not dilated or inflamed. Mild diffuse circumferential bladder wall thicken ing. No bowel obstruction. Colonic diverticulosis. No free air and no ascites. Prostate is not en larged. Impression: 1. Chronic pancreatitis with possible mild superimposed acute pancreatitis. Correlate with pancreat ic enzymes. 2. Small exophytic lesion or area of inflammation of the lateral left kidney which is new compared t o the prior study. This can be further evaluated with a CT or MRI renal mass protocol. 3. Colonic diverticulosis. 4. Mild circumferential bladder wall thickening. This could be due to cystitis or related to bladde r outlet obstruction. 5. Decreasing size of pancreatic pseudocyst
[2018-05-22] MEDS ORDERED: NUBAIN IVP STA (17:32)
[2018-05-22] MEDS ORDERED: TORADOL IVP STA (17:35)
[2018-05-22 17:53] VITALS: BP 185/97
== END 2018-05-22 18:05 | disposition home or self-care (01) ==
LOC: ED 15:47
DX: K86.1 Other chronic pancreatitis (principal); K86.3 Pseudocyst of pancreas; E86.0 Dehydration; R11.10 Vomiting, unspecified; F17.210 Nicotine dependence, cigarettes, uncomplicated; I10 Essential (primary) hypertension; I25.2 Old myocardial infarction
CPT/HCPCS: 36415; 80053; 80306; 82150; 83690; 85025; 96361; 96365; 96372; 96374; 96375; 96376; 99283

== ENCOUNTER 2018-10-15 17:53 | Outpatient (CLI) ==
[2012-11-07 13:18] VITALS: TEMP 97.6
[2018-10-15 18:11] VITALS: BMI 19.8
== END 2018-10-15 18:00 | disposition critical access hospital (66) ==
LOC: AMBL 17:53
PROVIDERS: ATTEND Emergency Medicine
DX: F41.9 Anxiety disorder, unspecified (principal); R25.1 Tremor, unspecified; F10.10 Alcohol abuse, uncomplicated; R61 Generalized hyperhidrosis; Z76.0 Encounter for issue of repeat prescription

== ENCOUNTER 2018-10-15 18:04 | Emergency (ER) ==
[2018-10-15 18:11] VITALS: BMI 19.8
[2018-10-15] MEDS ORDERED: DILAUDID 1 MG/ML SYRINGE ONE (19:09)
[2018-10-15] MEDS ORDERED: DILAUDID 0.5 MG/0.5 ML SYRINGE IVP STA ×3 (19:12→20:19)
--- NOTE | 2018-10-15 19:12 | ED.PDOC ---
General ED Provider: Dr. [place] CHOW Chief Complaint: Behavioral Complaint Stated Complaint: 47 y old with abdominal pain,Known to have a chronic exacerbatibg pancreatitus,Pain distress,Goose bumps.restlesness,nausea, tremelousness,. body shakes,hesitant and shakey speech,COWS score approx 14 or more. Eamination is to be interpreted with a degree of educated caution and lab work is needed to support it. Time Seen by Physician: 19:20 Mode of Arrival: Stretcher Information Source: Patient, EMT Exam Limitations: No limitations Primary Care Provider: MISSY GUERRIER Nursing and Triage Documentation Reviewed and Agree: Yes Does patient meet sepsis criteria?: No System Inflammatory Response Syndrome: Not Applicable Sepsis Protocol: For patient's 13 years and over: Temp is 96.8 and below OR 101 and greater Pulse >90 BPM Resp >20/minute Acutely Altered Mental Status Are patient's symptoms suggestive of a new infection, such as: -Pneumonia -Skin, Soft Tissue -Endocarditis -UTI -Bone, Joint Infection -Implantable Device -Acute Abdominal Infection -Wound Infection -Meningitis -Blood Stream Catheter Infection -Unknown GI Complaint Exam - Abdominal Pain Complaint/Exam Onset: Gradual Symptoms Are: Still present Timing: Constant Initial Severity: Moderate Current Severity: Moderate Location of Pain: LUQ, Epigastric Radiates To: Reports: Back Character: Reports: Sharp Aggravating: Reports: Food Alleviating: Reports: None, Rest Associated Signs and Symptoms: Reports: Diaphoresis, Back pain, Decreased urine output, Decreased appetite, Nausea, Decreased activity Related History: Reports: Similar episode AAA Risk Factors: Reports: Hypertension Cardiac Risk Factors: Reports: Hypertension Testicular Torsion Risk Factors: Reports: None Surgical Obstruction Risk Factors: Reports: None Related Surgical History: Reports: None Abdominal Findings: Present: Abdominal distention, Other Genitalia Exam: Present: Normal findings Rectal Exam: Present: Other Differential Diagnoses: Bowel Obstruction, Diverticulitis, Gastroenteritis, Pancreatitis Quality Indicator For Non-Traumatic Chest Pain/Syncope: EKG Performed Review of Systems - Review Of Systems Constitutional: Reports: Malaise, Weakness, Sweats, Loss of appetite Eyes: Reports: No symptoms Ears, Nose, Mouth, Throat: Reports: No symptoms Respiratory: Reports: No symptoms Cardiac: Reports: No symptoms GI: Reports: Abdomen distended, Abdominal pain, Poor appetite, Poor fluid intake : Reports: No symptoms Musculoskeletal: Reports: No symptoms, Back pain, Muscle pain Skin: Reports: No symptoms Neurological: Reports: No symptoms Endocrine: Reports: No symptoms Hematologic/Lymphatic: Reports: No symptoms All Other Systems: Reviewed and Negative Past Medical History - Past Medical History Previously Healthy: Yes Endocrine: Reports: None Cardiovascular: Reports: VA, Hypertension Respiratory: Reports: None Hematological: Reports: None Gastrointestinal: Reports: Pancreatitis Genitourinary: Reports: None Neuro/Psych: Reports: Anxiety, Other (ALCOHOLIC) Musculoskeletal: Reports: Unknown Cancer: Reports: None Other Pertinent Past Medical History: etoh - Surgical History General Surgical History: Reports: Cholecystectomy, Orthopedic (CARPAL TUNNEL LEFT, hand surgery on left) - Family History Family History: Reports: Unknown - Social History Smoking Status: Current every day smoker, Heavy tobacco smoker Hx Substance Use: Yes Alcohol Screening: Heavy Physical Exam - Physical Exam Appearance: Ill-appearing, Cachectic Ill-appearing: Moderate Pain Distress: Moderate Eyes: JOLANTA, EOMI, Conjunctiva clear ENT: Ears normal, Nose normal, Oropharynx normal Neck: Supple Respiratory: Airway patent, Breath sounds clear Cardiovascular: RRR, Pulses normal, No rub GI/: Soft, Nontender Musculoskeletal: Normal strength, ROM intact, No edema Skin: Warm, Dry Neurological: Sensation intact, Alert, Oriented Psychiatric: Anxious Critical Care Note - Critical Care Note Total Time (mins): 0 Course - Course Hematology/Chemistry: 10/15/18 19:27 10/15/18 19:27 Orders, Labs, Meds: Lab Review 10/15/18 10/15/18 10/15/18 19:27 19:27 19:30 WBC 7.70 RBC 5.15 Hgb 17.4 Hct 49.5 MCV 96.1 H MCH 33.8 H MCHC 35.2 RDW Coeff of Reginadlo 12.9 Plt Count 312 Immature Gran % (Auto) 0.3 Neut % (Auto) 63.2 Lymph % (Auto) 24.4 Cross % (Auto) 10.0 Eos % (Auto) 1.3 Baso % (Auto) 0.8 Immature Gran # (Auto) 0.0 Neut # (Auto) 4.9 Lymph # (Auto) 1.9 Cross # (Auto) 0.8 Eos # (Auto) 0.1 Baso # (Auto) 0.1 Sodium 135.9 Potassium 4.79 Chloride 99.9 Carbon Dioxide 23.4 Anion Gap 17.39 BUN 5.8 L Creatinine 0.50 L Estimated GFR (MDRD) 177.00 BUN/Creatinine Ratio 11.60 Glucose 99.2 Calcium 9.88 Total Bilirubin 0.94 AST 29.8 ALT 13.0 Alkaline Phosphatase 135.1 H Total Protein 8.38 H Albumin 4.96 Globulin 3.42 Albumin/Globulin Ratio 1.45 Amylase 66.7 Lipase 35.8 Urine Color Urine Clarity Urine pH Ur Specific [place] Urine Protein Urine Glucose (UA) Urine Ketones Urine Blood Urine Nitrite Urine Bilirubin Urine Urobilinogen Ur Leukocyte Esterase Urine Microscopic WBC Ur Squamous Epith Cells Hyaline Casts Urine Mucus Urine Sperm Plasma/Serum Alcohol < 10.0 10/15/18 19:34 WBC RBC Hgb Hct MCV MCH MCHC RDW Coeff of Reginaldo Plt Count Immature Gran % (Auto) Neut % (Auto) Lymph % (Auto) Cross % (Auto) Eos % (Auto) Baso % (Auto) Immature Gran # (Auto) Neut # (Auto) Lymph # (Auto) Cross # (Auto) Eos # (Auto) Baso # (Auto) Sodium Potassium Chloride Carbon Dioxide Anion Gap BUN Creatinine Estimated GFR (MDRD) BUN/Creatinine Ratio Glucose Calcium Total Bilirubin AST ALT Alkaline Phosphatase Total Protein Albumin Globulin Albumin/Globulin Ratio Amylase Lipase Urine Color Yellow Urine Clarity Clear Urine pH 7.0 Ur Specific [place] 1.015 Urine Protein Trace Urine Glucose (UA) Negative Urine Ketones 2+ Urine Blood Negative Urine Nitrite Negative Urine Bilirubin Negative Urine Urobilinogen 1.0 Ur Leukocyte Esterase Negative Urine Microscopic WBC 2-5 Ur Squamous Epith Cells 5-10 Hyaline Casts 2-5 Urine Mucus 1+ Urine Sperm Trace Plasma/Serum Alcohol Orders Category Date Time Status EKG-(ED ONLY) Stat CARDIO 10/15/18 19:22 Ordered IV [ED IV/MEDIPORT/POWERPORT] .ONCE EMERGENCY 10/15/18 19:13 Active AMYLASE Stat LAB 10/15/18 19:27 Completed BLOOD ALCOHOL Stat LAB 10/15/18 19:30 Completed CBC W/ AUTO DIFF Stat LAB 10/15/18 19:27 Completed COMPREHENSIVE METABOLIC PANEL Stat LAB 10/15/18 19:27 Completed LIPASE Stat LAB 10/15/18 19:27 Completed URINALYSIS C & S IF INDICATED Stat LAB 10/15/18 19:34 Completed 0.9 % Sodium Chloride [Saline Flush] MEDS 10/15/18 19:13 Ordered 1 syr IVF PRN PRN Hydromorphone HCl [Dilaudid 0.5 mg/0.5 ml Syringe] MEDS 10/15/18 19:57 Discontinued 0.5 mg IVP ONCE STA Hydromorphone HCl [Dilaudid 0.5 mg/0.5 ml Syringe] MEDS 10/15/18 20:19 Stat 0.5 mg IVP ONCE STA Hydromorphone HCl [Dilaudid 1 mg/ml Syringe] MEDS 10/15/18 19:09 Discontinued 2 mg .ROUTE .STK-MED ONE Hydromorphone HCl [Dilaudid 1 mg/ml Syringe] MEDS 10/15/18 19:25 Discontinued 2 mg IM ONCE STA Ondansetron HCl/Pf [Zofran 4 mg/2 ml] MEDS 10/15/18 19:34 Discontinued 4 mg IVP ONCE STA Sodium Chloride 0.9% [Sodium Chloride] 1,000 ml MEDS 10/15/18 19:[address] ABDOMEN/PELVIS WO CONTRAST Stat RADS 10/15/18 19:16 Taken Medications Generic Name Dose Route Start Last Admin Trade Name Freq PRN Reason Stop Dose Admin Sodium Chloride 1 syr 10/15/18 19:13 Saline Flush IVF PRN PRN To flush IV Discontinued Medications Generic Name Dose Route Start Last Admin Trade Name Freq PRN Reason Stop Dose Admin Hydromorphone HCl 2 mg 10/15/18 19:25 10/15/18 19:26 Dilaudid 1 Mg/Ml Syringe IM 10/15/18 19:26 2 mg ONCE STA Administration Hydromorphone HCl 0.5 mg 10/15/18 19:57 10/15/18 20:01 Dilaudid 0.5 Mg/0.5 Ml Syringe IVP 10/15/18 19:58 0.5 mg ONCE STA Administration Sodium Chloride 1,000 mls @ 1,000 mls/hr 10/15/18 19:13 10/15/18 19:29 Sodium Chloride IV 10/15/18 20:12 1,000 mls/hr BOLUS STA Administration Ondansetron HCl 4 mg 10/15/18 19:34 10/15/18 20:01 Zofran 4 Mg/2 Ml IVP 10/15/18 19:35 4 mg ONCE STA Administration Vital Signs: Temp Pulse Resp BP Pulse Ox 10/15/18 18:04 96.2 F L 88 20 171/106 H 96 Departure - Departure Time of Disposition: 20:18 Disposition: HOME SELF-CARE Discharge Problem: Chronic pancreatitis, Pancreatitis Instructions: Pancreatitis (ED), Dehydration (ED), Opioid Safety (ED) Condition: Good Pt referred to PMD for follow-up: Yes IPMP verified?: No Allergies/Adverse Reactions: Allergies No Known Allergies Allergy (Verified 10/15/18 18:13) Home Medications: Ambulatory Orders Doxepin HCl 50 mg PO BEDTIME 10/15/18 Duloxetine HCl [Cymbalta] 30 mg PO DAILY 10/15/18 Ibuprofen 800 mg PO PRN PRN 10/15/18 Oxycodone HCl/Acetaminophen [Oxycodone-Acetaminophen 10-325] 1 each PO PRN PRN 10/15/18 Disposition Discussed With: Patient
[2018-10-15] MEDS ORDERED: SODIUM CHLORIDE 1,000 ML IV STA (19:13)
[2018-10-15] MEDS ORDERED: DILAUDID 1 MG/ML SYRINGE IM STA (19:25)
[2018-10-15] MEDS ORDERED: ZOFRAN 4 MG/2 ML IVP STA (19:34)
[2018-10-15 20:23] VITALS: BP 146/92; TEMP 98.6
--- NOTE | 2018-10-15 20:23 | CT ---
EXAM: CT abdomen and pelvis without contrast. HISTORY: Chronic pancreatitis, abdominal pain TECHNIQUE: Multi-slice transaxial helical CT. Coronal and sagittal reformatons were performed. COMPARISON: 05/22/2018. FINDINGS: The heart is normal in size. Calcified granuloma is seen within the right lung base. Minimal subseg mental atelectasis/scarring is seen within the left lung base. Evaluation of the solid organs is limited without IV contrast. The spleen is normal in size and cont ains calcified granulomas. The gallbladder has been removed. Dilation of the pancreatic duct is aga in seen measuring up to 6 mm in diameter. Multiple coarse calcifications are seen within the pancrea s. No definite surrounding inflammatory changes of the pancreas is seen. Small hypodense lesion in the pancreatic tail appears smaller now measuring 1.7 x 1.5 cm, previously measuring 2.7 x 1.8 cm. N onspecific perinephric stranding densities are again seen. No hydronephrosis or renal calculus is se en. The bilateral adrenal glands appear grossly unremarkable. No intrahepatic biliary ductal dilati on is seen. The bowel is not dilated. Diffuse fluid filled nondilated small bowel loops are present. Diffuse th ickening of the urinary bladder is seen. Prostate is normal in size. Small scattered diverticuli ar e seen within the sigmoid colon. The appendix appears normal in size. No pelvic free fluid is seen. Moderate calcified plaques are present within the abdominal aorta. Upper abdominal varices are aga in seen. Minimal/mild multilevel lumbar spondylosis is present. IMPRESSION: 1. Similar findings of chronic pancreatitis without definite CT evidence of acute pancreatitis. Cor relate with pancreatic enzymes. 2. Interval smaller size of hypodense lesion in the pancreatic tail suggesting decreasing pseudocyst . 3. Diffuse thickening of the urinary bladder which can be seen with cystitis, neurogenic bladder, or chronic outlet obstruction. Outlet obstruction appears less likely given the normal sized prostate. 4. Colonic diverticulosis. 5. Fluid filled small bowel loops are nonspecific however can be seen with ileus. 6. Upper abdominal varices.
== END 2018-10-15 20:30 | disposition home or self-care (01) ==
LOC: ED 18:04
DX: K86.1 Other chronic pancreatitis (principal); I10 Essential (primary) hypertension; I25.2 Old myocardial infarction; F17.210 Nicotine dependence, cigarettes, uncomplicated; Z79.899 Other long term (current) drug therapy
CPT/HCPCS: 36415; 80053; 80307; 81001; 82150; 83690; 85025; 93005; 93010; 96361; 96372; 96374; 96375; 99284

== ENCOUNTER 2020-06-22 05:09 | Inpatient (IN) ==
[2020-06-22] MEDS ORDERED: THIAMINE 100 MG in SODIUM CHLORIDE 50 ML IV STA (05:17)
[2020-06-22] MEDS ORDERED: SODIUM CHLORIDE 1,000 ML IV STA (05:17)
[2020-06-22] MEDS ORDERED: ATIVAN IVP STA (05:17)
[2020-06-22] MEDS ORDERED: ZOFRAN 4 MG/2 ML IVP STA (05:22)
[2020-06-22] MEDS ORDERED: ATIVAN IM STA (05:23)
[2020-06-22] MEDS ORDERED: HALDOL IM STA (05:23)
--- NOTE | 2020-06-22 05:30 | ED.PDOC ---
General <WESLY SOL MD - Last Filed: 06/22/20 07:01> ED Provider: Dr. WESLY SOL Chief Complaint: Alcohol/Substance Withdrawal Stated Complaint: Comes to the ER with symptoms of ETOH withdrawal after not drinking any alcohol for 4 day with a history alcoholism. He is shaking irritable and has been nauseated and vomiting. states he is out of all his medications. States he was tired of drinking alcohol and decided to just stop. Time Seen by Physician: 05:26 Mode of Arrival: Ambulance Information Source: Patient Primary Care Provider: STEPHEN GRAMAJO, SEMAJ, SUBMARINE CABLE EQUIPMENT TECHNICIAN Nursing and Triage Documentation Reviewed and Agree: Yes Does patient meet sepsis criteria?: No System Inflammatory Response Syndrome: Pulse >90 BPM Sepsis Protocol: For patient's 13 years and over: Temp is 96.8 and below OR 101 and greater Pulse >90 BPM Resp >20/minute Acutely Altered Mental Status Are patient's symptoms suggestive of a new infection, such as: -Pneumonia -Skin, Soft Tissue -Endocarditis -UTI -Bone, Joint Infection -Implantable Device -Acute Abdominal Infection -Wound Infection -Meningitis -Blood Stream Catheter Infection -Unknown Review of Systems <WESLY SOL MD - Last Filed: 06/22/20 07:01> Review Of Systems Constitutional: Reports Diaphoresis and Loss of appetite Eyes: Reports No symptoms Ears, Nose, Mouth, Throat: Reports No symptoms Respiratory: Reports No symptoms GI: Reports Abdominal pain, Nausea, Poor appetite, Poor fluid intake and Vomiting : Reports No symptoms Musculoskeletal: Reports No symptoms Neurological: Reports Anxiety, Emotional problems and Other (tremors) Endocrine: Reports No symptoms Hematologic/Lymphatic: Reports No symptoms All Other Systems: Reviewed and Negative PFSH <WESLY SOL MD - Last Filed: 06/22/20 07:01> Medical History (Updated 06/22/20 @ 06:27 by WESLY SOL MD) Alcoholism /alcohol abuse Pancreatitis Social History Smoking and tobacco status: Current every day smoker Alcohol intake: former Substance use type: does not use Mohini/anabaptism: NONE Housing: house Marital status: D Highest education level completed: high school graduate assisted: No Current occupational status: unemployed Pets and animals: Yes History of recent travel: No Seatbelt use: always Drives intoxicated or rides with intoxicated driver license technician: No Water heater temperature set < 120 degrees: Yes Working smoke detector in home: Yes Fire extinguisher in home: Yes Carbon monoxide detector in home: Yes Firearms in home: No Surgical History (Updated 01/18/20 @ 08:54 by [employer] [place]) History of surgery on integumentary structure neck surgery Physical Exam <WESLY SOL MD - Last Filed: 06/22/20 07:01> Physical Exam Appearance: Reports Ill-appearing Ill-appearing: Moderate Pain Distress: Mild Eyes: Reports JOLANTA and EOMI ENT: Reports Dry mucosa Respiratory: Reports Breath sounds clear and Breath sounds equal Cardiovascular: Reports No murmur and Tachycardia GI/: Reports Tender Musculoskeletal: Reports Normal strength Skin: Reports Warm and Dry Neurological: Reports Motor intact, Alert, Oriented and Other (asterixis ) Psychiatric: Reports Anxious and Depressed Interpretation <WESLY SOL MD - Last Filed: 06/22/20 07:01> EKG Interpretation Time of EKG #1: 06:48 Rate: Normal Rhythm: Sinus Ectopy: None Pinch: Left ST Segment: Normal Interpretation: old inferior infact age undetermined Physician Notification <WESLY SOL MD - Last Filed: 06/22/20 07:01> Case Discussed Endorsed To/Discussed With: Dr Davey Time of Discussion: 07:01 Critical Care Note <WESLY SOL MD - Last Filed: 06/22/20 07:01> Critical Care Note Total Critical Care Time (mins): 60 Course <WESLY SOL MD - Last Filed: 06/22/20 07:01> Course Hematology/Chemistry: 06/22/20 06:10 06/22/20 05:54 Orders, Labs, Meds: Lab Review 06/22/20 06/22/20 05:54 06:10 WBC 10.51 H RBC 4.61 L Hgb 16.3 Hct 44.8 MCV 97.2 H MCH 35.4 H MCHC 36.4 H RDW Coeff of Reginaldo 12.3 Plt Count 222 Immature Gran % (Auto) 0.4 Neut % (Auto) 78.2 H Lymph % (Auto) 13.0 [place] % (Auto) 8.0 Eos % (Auto) 0.2 Baso % (Auto) 0.2 Neut # (Auto) 8.2 H Lymph # (Auto) 1.4 [place] # (Auto) 0.8 Eos # (Auto) 0.0 Baso # (Auto) 0.0 Immature Gran # (Auto) 0.0 Sodium 130.3 L Potassium 4.09 Chloride 99.2 Carbon Dioxide 17.6 L Anion Gap 17.59 BUN 6.5 L Creatinine 0.57 L Estimated GFR (MDRD) 151.00 BUN/Creatinine Ratio 11.40 Glucose 160.8 H Calcium 9.33 Total Bilirubin 0.68 AST 38.8 ALT 25.1 Alkaline Phosphatase 84.1 Total Protein 6.98 Albumin 4.29 Globulin 2.69 Albumin/Globulin Ratio 1.59 Amylase 55.4 Lipase < 10.0 L TSH 0.553 Salicylate Level mg/dL < 1.00 Acetaminophen < 10.0 L Plasma/Serum Alcohol < 10.0 Orders Category Date Time Status EKG-(ED ONLY) Stat CARDIO 06/22/20 05:18 Completed OXYGEN Routine CARDIO 06/22/20 08:13 Ordered ACTIVITY .BR with BRP CARE 06/22/20 08:08 Active CASE MANAGEMENT CONSULT ONCE CARE 06/22/20 08:10 Active INTAKE & OUTPUT Q8HR CARE 06/22/20 08:09 Active VITAL SIGNS Q4HR CARE 06/22/20 08:12 Active VITAL SIGNS Q8HR CARE 06/22/20 08:09 Active REGULAR DIET DIETARY 06/22/20 Lunch Ordered ED TIRE TRUCKER APPLIED ONCE EMERGENCY 06/22/20 05:18 Active ED IV/MEDIPORT/POWERPORT .ONCE EMERGENCY 06/22/20 05:17 Active ACETAMINOPHEN Stat LAB 06/22/20 05:54 Completed AMYLASE Stat LAB 06/22/20 05:54 Completed BLOOD ALCOHOL Stat LAB 06/22/20 05:54 Completed CBC W/ AUTO DIFF DAILY@0600 LAB 06/23/20 06:00 Ordered CBC W/ AUTO DIFF DAILY@0600 LAB 06/24/20 06:00 Ordered CBC W/ AUTO DIFF Stat LAB 06/22/20 06:10 Completed COMPREHENSIVE METABOLIC PANEL DAILY@0600 LAB 06/23/20 06:00 Ordered COMPREHENSIVE METABOLIC PANEL DAILY@0600 LAB 06/24/20 06:00 Ordered COMPREHENSIVE METABOLIC PANEL Stat LAB 06/22/20 05:54 Completed DRUG SCREEN, URINE, RAPID Stat LAB 06/22/20 05:18 Ordered LIPASE Stat LAB 06/22/20 05:54 Completed SALICYLATE Stat LAB 06/22/20 05:54 Completed THYROID STIMULATING HORMONE Stat LAB 06/22/20 05:54 Completed URINALYSIS C & S IF INDICATED Stat LAB 06/22/20 05:18 Uncollected 0.9 % Sodium Chloride [Saline Flush] MEDS 06/22/20 05:17 Active 1 syr IVF PRN PRN Chlordiazepoxide HCl [Librium] MEDS 06/22/20 07:22 Discontinued 50 mg PO ONCE STA Folic Acid MEDS 06/22/20 06:37 Discontinued 5 mg .ROUTE .STK-MED ONE Folic Acid 1 mg MEDS 06/22/20 05:30 Active 0.9 % Sodium Chloride [Sodium Chloride] 50 ml IV DAILY Haloperidol Lactate [Haldol] MEDS 06/22/20 05:23 Discontinued 2 mg IM ONCE STA Lorazepam [Ativan] MEDS 06/22/20 05:23 Discontinued 1 mg IM ONCE STA Lorazepam [Ativan] MEDS 06/22/20 05:17 Discontinued 1 mg IVP ONCE STA Mag-Al Plus//Lidocaine [Gi Cocktail] MEDS 06/22/20 07:22 Discontinued 30 ml PO ONCE STA Pantoprazole Sodium [Protonix IV] MEDS 06/22/20 06:23 Discontinued 40 mg IVP ONCE STA Potassium Chloride in 0.9%NaCl [Sodium Chloride 0.9%- MEDS 06/22/20 05:30 Active KCl 20 Meq] 1,000 ml Mvi, Adult No.1 with Vit K [Infuvite Adult] 10 ml IV 125 mls/hr Sodium Chloride 0.9% [Sodium Chloride] 1,000 ml MEDS 06/22/20 05:17 Discontinued IV BOLUS Vitamin B-1 Inj [Thiamine] MEDS 06/22/20 07:19 Discontinued 200 mg .ROUTE .STK-MED ONE Vitamin B-1 Inj [Thiamine] 100 mg MEDS 06/22/20 05:17 Discontinued 0.9 % Sodium Chloride [Sodium Chloride] 50 ml IV ONCE RESUSCITATION STATUS Routine OTHERS 06/22/20 08:08 Ordered Medications Generic Name Dose Route Start Last Admin Trade Name Freq PRN Reason Stop Dose Admin Amoxicillin 500 mg 06/22/20 13:00 Amoxicillin 500 Mg Capsule PO 06/25/20 12:59 Q8HR MARA Chlordiazepoxide HCl 50 mg 06/22/20 08:30 Chlordiazepoxide Hcl 25 Mg Capsule PO Q8H MARA Folic Acid 4 mg 06/23/20 09:00 Folic Acid 1 Mg Tablet PO DAILY [facility]AA Multivitamins/Minerals 10 ml/ 1,010 mls @ 125 mls/hr 06/22/20 05:30 Potassium Chloride/Sodium IV Chloride .Q8H5M MARA Folic Acid 1 mg/ Sodium 50.2 mls @ 100 mls/hr 06/22/20 05:30 06/22/20 06:40 Chloride IV 100 mls/hr DAILY MARA Administration Sodium Chloride 1,000 mls @ 125 mls/hr 06/22/20 08:30 Sodium Chloride IV .Q8H MARA Ondansetron HCl 4 mg 06/22/20 08:30 Ondansetron Hcl/Pf 4 Mg/2 Ml Sdv IVP Q8H MARA Pantoprazole Sodium 40 mg 06/23/20 09:00 Pantoprazole Sodium 40 Mg Vial IVP DAILY MARA Sodium Chloride 1 syr 06/22/20 05:17 0.9% Sodium Chloride 10 Ml Disp.Syrin IVF PRN PRN To flush IV Thiamine HCl 100 mg 06/23/20 09:00 Vitamin B-1 100 Mg Tablet PO DAILY [facility] Discontinued Medications Generic Name Dose Route Start Last Admin Trade Name Freq PRN Reason Stop Dose Admin Al Hydroxide/Mg Hydroxide 30 ml 06/22/20 07:22 06/22/20 07:40 Mag-Al Plus//Lidocaine 30 Ml Btl PO 06/22/20 07:23 30 ml ONCE STA Administration Chlordiazepoxide HCl 50 mg 06/22/20 07:22 06/22/20 07:40 Chlordiazepoxide Hcl 25 Mg Capsule PO 06/22/20 07:23 50 mg ONCE STA Administration Haloperidol Lactate 2 mg 06/22/20 05:23 06/22/20 05:33 Haloperidol Lactate 5 Mg/Ml Vial IM 06/22/20 05:24 2 mg ONCE STA Administration Sodium Chloride 1,000 mls @ 1,000 mls/hr 06/22/20 05:17 06/22/20 06:24 Sodium Chloride IV 06/22/20 06:16 1,000 mls/hr BOLUS STA Administration Thiamine HCl 100 mg/ Sodium 51 mls @ 100 mls/hr 06/22/20 05:17 06/22/20 07:22 Chloride IV 06/22/20 05:47 100 mls/hr ONCE STA Administration Lorazepam 1 mg 06/22/20 05:17 06/22/20 06:24 Lorazepam Inj 2 Mg/Ml Vial IVP 06/22/20 05:18 1 mg ONCE STA Administration Lorazepam 1 mg 06/22/20 05:23 06/22/20 05:34 Lorazepam Inj 2 Mg/Ml Vial IM 06/22/20 05:24 1 mg ONCE STA Administration Pantoprazole Sodium 40 mg 06/22/20 06:23 06/22/20 06:40 Pantoprazole Sodium 40 Mg Vial IVP 06/22/20 06:24 40 mg ONCE STA Administration Pantoprazole Sodium 40 mg 06/22/20 08:18 Pantoprazole Sodium 40 Mg Vial IVP 06/22/20 08:19 ONCE STA Vital Signs: Temp Pulse Resp BP Pulse Ox 06/22/20 05:34 89 18 131/62 99 06/22/20 05:10 97.3 F L 72 26 H 120/77 96 <TY DAVEY MD - Last Filed: 06/22/20 08:35> Course Orders, Labs, Meds: Lab Review 06/22/20 06/22/20 05:54 06:10 WBC 10.51 H RBC 4.61 L Hgb 16.3 Hct 44.8 MCV 97.2 H MCH 35.4 H MCHC 36.4 H RDW Coeff of Reginaldo 12.3 Plt Count 222 Immature Gran % (Auto) 0.4 Neut % (Auto) 78.2 H Lymph % (Auto) 13.0 [place] % (Auto) 8.0 Eos % (Auto) 0.2 Baso % (Auto) 0.2 Neut # (Auto) 8.2 H Lymph # (Auto) 1.4 [place] # (Auto) 0.8 Eos # (Auto) 0.0 Baso # (Auto) 0.0 Immature Gran # (Auto) 0.0 Sodium 130.3 L Potassium 4.09 Chloride 99.2 Carbon Dioxide 17.6 L Anion Gap 17.59 BUN 6.5 L Creatinine 0.57 L Estimated GFR (MDRD) 151.00 BUN/Creatinine Ratio 11.40 Glucose 160.8 H Calcium 9.33 Total Bilirubin 0.68 AST 38.8 ALT 25.1 Alkaline Phosphatase 84.1 Total Protein 6.98 Albumin 4.29 Globulin 2.69 Albumin/Globulin Ratio 1.59 Amylase 55.4 Lipase < 10.0 L TSH 0.553 Salicylate Level mg/dL < 1.00 Acetaminophen < 10.0 L Plasma/Serum Alcohol < 10.0 Orders Category Date Time Status EKG-(ED ONLY) Stat CARDIO 06/22/20 05:18 Completed OXYGEN Routine CARDIO 06/22/20 08:13 Ordered ACTIVITY .BR with BRP CARE 06/22/20 08:08 Active CASE MANAGEMENT CONSULT ONCE CARE 06/22/20 08:10 Active INTAKE & OUTPUT Q8HR CARE 06/22/20 08:09 Active VITAL SIGNS Q4HR CARE 06/22/20 08:12 Active VITAL SIGNS Q8HR CARE 06/22/20 08:09 Active REGULAR DIET DIETARY 06/22/20 Lunch Ordered ED TIRE TRUCKER APPLIED ONCE EMERGENCY 06/22/20 05:18 Active ED IV/MEDIPORT/POWERPORT .ONCE EMERGENCY 06/22/20 05:17 Active ACETAMINOPHEN Stat LAB 06/22/20 05:54 Completed AMYLASE Stat LAB 06/22/20 05:54 Completed BLOOD ALCOHOL Stat LAB 06/22/20 05:54 Completed CBC W/ AUTO DIFF DAILY@0600 LAB 06/23/20 06:00 Ordered CBC W/ AUTO DIFF DAILY@0600 LAB 06/24/20 06:00 Ordered CBC W/ AUTO DIFF Stat LAB 06/22/20 06:10 Completed COMPREHENSIVE METABOLIC PANEL DAILY@0600 LAB 06/23/20 06:00 Ordered COMPREHENSIVE METABOLIC PANEL DAILY@0600 LAB 06/24/20 06:00 Ordered COMPREHENSIVE METABOLIC PANEL Stat LAB 06/22/20 05:54 Completed DRUG SCREEN, URINE, RAPID Stat LAB 06/22/20 05:18 Ordered LIPASE Stat LAB 06/22/20 05:54 Completed SALICYLATE Stat LAB 06/22/20 05:54 Completed THYROID STIMULATING HORMONE Stat LAB 06/22/20 05:54 Completed URINALYSIS C & S IF INDICATED Stat LAB 06/22/20 05:18 Uncollected 0.9 % Sodium Chloride [Saline Flush] MEDS 06/22/20 05:17 Active 1 syr IVF PRN PRN Chlordiazepoxide HCl [Librium] MEDS 06/22/20 07:22 Discontinued 50 mg PO ONCE STA Folic Acid MEDS 06/22/20 06:37 Discontinued 5 mg .ROUTE .STK-MED ONE Folic Acid 1 mg MEDS 06/22/20 05:30 Active 0.9 % Sodium Chloride [Sodium Chloride] 50 ml IV DAILY Haloperidol Lactate [Haldol] MEDS 06/22/20 05:23 Discontinued 2 mg IM ONCE STA Lorazepam [Ativan] MEDS 06/22/20 05:23 Discontinued 1 mg IM ONCE STA Lorazepam [Ativan] MEDS 06/22/20 05:17 Discontinued 1 mg IVP ONCE STA Mag-Al Plus//Lidocaine [Gi Cocktail] MEDS 06/22/20 07:22 Discontinued 30 ml PO ONCE STA Pantoprazole Sodium [Protonix IV] MEDS 06/22/20 06:23 Discontinued 40 mg IVP ONCE STA Potassium Chloride in 0.9%NaCl [Sodium Chloride 0.9%- MEDS 06/22/20 05:30 Active KCl 20 Meq] 1,000 ml Mvi, Adult No.1 with Vit K [Infuvite Adult] 10 ml IV 125 mls/hr Sodium Chloride 0.9% [Sodium Chloride] 1,000 ml MEDS 06/22/20 05:17 Discontinued IV BOLUS Vitamin B-1 Inj [Thiamine] MEDS 06/22/20 07:19 Discontinued 200 mg .ROUTE .STK-MED ONE Vitamin B-1 Inj [Thiamine] 100 mg MEDS 06/22/20 05:17 Discontinued 0.9 % Sodium Chloride [Sodium Chloride] 50 ml IV ONCE RESUSCITATION STATUS Routine OTHERS 06/22/20 08:08 Ordered Medications Generic Name Dose Route Start Last Admin Trade Name Freq PRN Reason Stop Dose Admin Amoxicillin 500 mg 06/22/20 13:00 Amoxicillin 500 Mg Capsule PO 06/25/20 12:59 Q8HR MARA Chlordiazepoxide HCl 50 mg 06/22/20 08:30 Chlordiazepoxide Hcl 25 Mg Capsule PO Q8H MARA Folic Acid 4 mg 06/23/20 09:00 Folic Acid 1 Mg Tablet PO DAILY [facility] Multivitamins/Minerals 10 ml/ 1,010 mls @ 125 mls/hr 06/22/20 05:30 Potassium Chloride/Sodium IV Chloride .Q8H5M MARA Folic Acid 1 mg/ Sodium 50.2 mls @ 100 mls/hr 06/22/20 05:30 06/22/20 06:40 Chloride IV 100 mls/hr DAILY MARA Administration Sodium Chloride 1,000 mls @ 125 mls/hr 06/22/20 08:30 Sodium Chloride IV .Q8H MARA Ondansetron HCl 4 mg 06/22/20 08:30 Ondansetron Hcl/Pf 4 Mg/2 Ml Sdv IVP Q8H MARA Pantoprazole Sodium 40 mg 06/23/20 09:00 Pantoprazole Sodium 40 Mg Vial IVP DAILY MARA Sodium Chloride 1 syr 06/22/20 05:17 0.9% Sodium Chloride 10 Ml Disp.Syrin IVF PRN PRN To flush IV Thiamine HCl 100 mg 06/23/20 09:00 Vitamin B-1 100 Mg Tablet PO DAILY MARA Discontinued Medications Generic Name Dose Route Start Last Admin Trade Name Freq PRN Reason Stop Dose Admin Al Hydroxide/Mg Hydroxide 30 ml 06/22/20 07:22 06/22/20 07:40 Mag-Al Plus//Lidocaine 30 Ml Btl PO 06/22/20 07:23 30 ml ONCE STA Administration Chlordiazepoxide HCl 50 mg 06/22/20 07:22 06/22/20 07:40 Chlordiazepoxide Hcl 25 Mg Capsule PO 06/22/20 07:23 50 mg ONCE STA Administration Haloperidol Lactate 2 mg 06/22/20 05:23 06/22/20 05:33 Haloperidol Lactate 5 Mg/Ml Vial IM 06/22/20 05:24 2 mg ONCE STA Administration Sodium Chloride 1,000 mls @ 1,000 mls/hr 06/22/20 05:17 06/22/20 06:24 Sodium Chloride IV 06/22/20 06:16 1,000 mls/hr BOLUS STA Administration Thiamine HCl 100 mg/ Sodium 51 mls @ 100 mls/hr 06/22/20 05:17 06/22/20 07:22 Chloride IV 06/22/20 05:47 100 mls/hr ONCE STA Administration Lorazepam 1 mg 06/22/20 05:17 06/22/20 06:24 Lorazepam Inj 2 Mg/Ml Vial IVP 06/22/20 05:18 1 mg ONCE STA Administration Lorazepam 1 mg 06/22/20 05:23 06/22/20 05:34 Lorazepam Inj 2 Mg/Ml Vial IM 06/22/20 05:24 1 mg ONCE STA Administration Pantoprazole Sodium 40 mg 06/22/20 06:23 06/22/20 06:40 Pantoprazole Sodium 40 Mg Vial IVP 06/22/20 06:24 40 mg ONCE STA Administration Pantoprazole Sodium 40 mg 06/22/20 08:18 Pantoprazole Sodium 40 Mg Vial IVP 06/22/20 08:19 ONCE STA Vital Signs: Temp Pulse Resp BP Pulse Ox 06/22/20 05:34 89 18 131/62 99 06/22/20 05:10 97.3 F L 72 26 H 120/77 96 Discharge Plan Discharge Patient Disposition: ADMITTED INPATIENT Discharge Problem: Alcohol withdrawal syndrome ED Provider: TY DAVEY Condition: Serious <WESLY SOL MD - Last Filed: 06/22/20 07:01> Physician Progress Note: []
[2020-06-22 06:11] LABS: BASOPHILS % (AUTO) 0.2 % (0.0-3.0); EOSINOPHILS % (AUTO) 0.2 % (0.0-7.0); HEMATOCRIT 44.8 % (42.0-52.0); HEMOGLOBIN 16.3 g/dl (14.0-18.0); IMMATURE GRANULOCYTE % (AUTO) 0.4 % (0.0-5.0); LYMPHOCYTES # (AUTO) 1.4 K/uL (0.60-3.4); MEAN CORPUSCULAR HEMOGLOBIN 35.4 pg (27.0-31.0); MEAN CORPUSCULAR HGB CONC 36.4 (31.8-35.4); MEAN CORPUSCULAR VOLUME 97.2 fl (80.0-94.0); MONOCYTES # (AUTO) 0.8 K/uL (0.4-2.0); NEUTROPHILS # (AUTO) 8.2 K/ul (2.0-6.9); NEUTROPHILS % (AUTO) 78.2 % (42.2-75.2); PLATELET COUNT 222 10^3/uL (140-440); RDW COEFFICIENT OF VARIATION 12.3 % (11.6-14.8); RED BLOOD COUNT 4.61 10^6/ul (4.70-6.10); WHITE BLOOD COUNT 10.51 K/ul (4.2-10.2)
[2020-06-22 06:22] LABS: ALANINE AMINOTRANSFERASE 25.1 U/L (0-50); ALBUMIN 4.29 g/dL (3.5-5.0); ALKALINE PHOSPHATASE 84.1 U/L (38-126); AMYLASE 55.4 U/L (30-110); ASPARTATE AMINO TRANSFERASE 38.8 U/L (17-59); BILIRUBIN,TOTAL 0.68 mg/dL (0.2-1.3); BLOOD UREA NITROGEN 6.5 mg/dL (9-20); CALCIUM 9.33 mg/dL (8.4-10.2); CARBON DIOXIDE 17.6 mmol/L (22-30.0); CHLORIDE 99.2 mmol/L (98-107); CREATININE 0.57 mg/dL (0.60-1.10); GLUCOSE 160.8 mg/dL (74-106); POTASSIUM 4.09 mmol/L (3.5-5.1); SODIUM 130.3 mmol/L (134.5-145); TOTAL PROTEIN 6.98 g/dL (6.3-8.2)
[2020-06-22] MEDS ORDERED: PROTONIX IV IVP STA ×2 (06:23→08:18)
[2020-06-22 06:27] LABS: ACETAMINOPHEN < 10.0 ug/ml (10-30); BLOOD ALCOHOL < 10.0 mg/dL (0.0-50.0); LIPASE < 10.0 U/L (23-300); SALICYLATE < 1.00 mg/dL (0-20.0)
[2020-06-22] MEDS ORDERED: FOLIC ACID ONE (06:37)
[2020-06-22] MEDS: FOLIC ACID 1 MG in SODIUM CHLORIDE 50 ML IV SCH ×2 (06:40→09:54)
[2020-06-22 06:51] LABS: THYROID STIMULATING HORMONE 0.553 uIU/L (0.465-4.68)
[2020-06-22] MEDS ORDERED: THIAMINE ONE (07:19)
[2020-06-22] MEDS ORDERED: GI COCKTAIL PO STA (07:22)
[2020-06-22] MEDS ORDERED: LIBRIUM PO STA (07:22)
[2020-06-22 09:06] VITALS: BMI 20.7
[2020-06-22] MEDS ORDERED: NITROSTAT SL PRN (09:31)
[2020-06-22] MEDS ORDERED: TYLENOL PO PRN (09:31)
[2020-06-22] MEDS ORDERED: ATROPINE SULFATE PFS IVP PRN (09:31)
[2020-06-22] MEDS: ZOFRAN 4 MG/2 ML IVP SCH ×3 (09:49→20:38)
[2020-06-22 09:50] LABS: CREATINE KINASE 122.3 U/L (55-170)
[2020-06-22 10:03] LABS: TROPONIN I 0.026 ng/ml (0.0000-0.120)
[2020-06-22 10:05] LABS: CREATINE KINASE MB 3.57 ng/ml (0.0-2.38)
[2020-06-22] MEDS: NICODERM 21 MG TD SCH (10:17)
[2020-06-22] MEDS: INFUVITE ADULT 10 ML in SODIUM CHLORIDE 0.9%-KCL 20 MEQ 1,000 ML IV SCH ×2 (10:17→17:57)
[2020-06-22] MEDS: MORPHINE 2 MG/ML SYRINGE IVP PRN ×2 (12:18→20:36)
[2020-06-22] MEDS: LIBRIUM PO SCH ×2 (13:42→20:44)
[2020-06-22] MEDS: AMOXICILLIN PO SCH ×2 (13:42→20:44)
[2020-06-22 16:49] LABS: BILIRUBIN,URINE Negative (NEGATIVE); CLARITY,URINE Clear (CLEAR); COLOR,URINE Yellow (YELLOW); GLUCOSE, URINE (UA) Negative (NEGATIVE); KETONES,URINE Negative (NEGATIVE); LEUKOCYTE ESTERASE ,URINE Negative (NEGATIVE); NITRITE,URINE Negative (NEGATIVE); PROTEIN,URINE Negative (NEGATIVE); URINE, BLOOD Negative (NEGATIVE); UROBILINOGEN,URINE 0.2 (0.2)
[2020-06-22 17:08] LABS: AMPHETAMINE SCREEN,URINE NEGATIVE (NEGATIVE); BARBITURATE SCREEN,URINE NEGATIVE (NEGATIVE); BENZODIAZEPINES SCREEN,URINE POSITIVE (NEGATIVE); CANNABINOID SCREEN,URINE NEGATIVE (NEGATIVE); COCAIN SCREEN,URINE NEGATIVE (NEGATIVE); METHADONE URINE SCREEN NEGATIVE (NEGATIVE); METHAMPHETAMINES SCREEN,URINE NEGATIVE (NEGATIVE); OPIATE SCREEN,URINE POSITIVE (NEGATIVE); OXYCODONE URINE SCREEN NEGATIVE (NEGATIVE); PHENCYCLIDINE SCREEN,URINE NEGATIVE (NEGATIVE); PROPOXYPHENE URINE SCREEN NEGATIVE (NEGATIVE); TRICYCLIC ANTIDEPRESSANTS URIN NEGATIVE (NEGATIVE)
[2020-06-22] MEDS: SODIUM CHLORIDE 1,000 ML IV SCH ×2 (18:00)
[2020-06-22 18:12] LABS: CREATINE KINASE 192.8 U/L (55-170)
[2020-06-22 18:25] LABS: TROPONIN I 0.026 ng/ml (0.0000-0.120)
[2020-06-22 18:38] LABS: CREATINE KINASE MB 3.9 ng/ml (0.0-2.38)
[2020-06-22] MEDS: VISTARIL INJ IM PRN (20:44)
[2020-06-23] MEDS: SODIUM CHLORIDE 1,000 ML IV SCH ×2 (01:19→09:40)
[2020-06-23] MEDS: INFUVITE ADULT 10 ML in SODIUM CHLORIDE 0.9%-KCL 20 MEQ 1,000 ML IV SCH ×2 (01:38→07:27)
[2020-06-23] MEDS: VISTARIL INJ IM PRN (03:04)
[2020-06-23] MEDS ORDERED: DILAUDID 1 MG/ML SYRINGE IV STA (03:55)
[2020-06-23] MEDS: ZOFRAN 4 MG/2 ML IVP SCH ×2 (04:12→13:19)
[2020-06-23] MEDS: LIBRIUM PO SCH ×2 (04:14→13:18)
[2020-06-23] MEDS: AMOXICILLIN PO SCH ×2 (04:14→13:19)
[2020-06-23 05:22] VITALS: TEMP 97.7
[2020-06-23 05:48] LABS: BASOPHILS % (AUTO) 0.3 % (0.0-3.0); EOSINOPHILS # (AUTO) 0.2 K/ul (0.0-0.7); EOSINOPHILS % (AUTO) 2.7 % (0.0-7.0); HEMATOCRIT 40.2 % (42.0-52.0); HEMOGLOBIN 14.1 g/dl (14.0-18.0); IMMATURE GRANULOCYTE % (AUTO) 0.3 % (0.0-5.0); LYMPHOCYTES # (AUTO) 2.2 K/uL (0.60-3.4); LYMPHOCYTES % (AUTO) 33.1 (10.0-50.0); MEAN CORPUSCULAR HEMOGLOBIN 35.1 pg (27.0-31.0); MEAN CORPUSCULAR HGB CONC 35.1 (31.8-35.4); MONOCYTES # (AUTO) 0.7 K/uL (0.4-2.0); MONOCYTES % (AUTO) 10.1 (0-10); NEUTROPHILS # (AUTO) 3.6 K/ul (2.0-6.9); NEUTROPHILS % (AUTO) 53.5 % (42.2-75.2); PLATELET COUNT 155 10^3/uL (140-440); RDW COEFFICIENT OF VARIATION 12.6 % (11.6-14.8); RED BLOOD COUNT 4.02 10^6/ul (4.70-6.10); WHITE BLOOD COUNT 6.64 K/ul (4.2-10.2)
[2020-06-23 06:04] LABS: ALANINE AMINOTRANSFERASE 17.7 U/L (0-50); ALBUMIN 3.25 g/dL (3.5-5.0); ALKALINE PHOSPHATASE 59.3 U/L (38-126); ASPARTATE AMINO TRANSFERASE 31.9 U/L (17-59); BILIRUBIN,TOTAL 0.77 mg/dL (0.2-1.3); BLOOD UREA NITROGEN 5.9 mg/dL (9-20); CALCIUM 8.75 mg/dL (8.4-10.2); CARBON DIOXIDE 24.6 mmol/L (22-30.0); CHLORIDE 105.7 mmol/L (98-107); CREATININE 0.59 mg/dL (0.60-1.10); GLUCOSE 97.5 mg/dL (74-106); POTASSIUM 3.73 mmol/L (3.5-5.1); SODIUM 133.9 mmol/L (134.5-145); TOTAL PROTEIN 5.63 g/dL (6.3-8.2)
[2020-06-23] MEDS: NICODERM 21 MG TD SCH (08:04)
[2020-06-23] MEDS: MORPHINE 2 MG/ML SYRINGE IVP PRN (08:57)
[2020-06-23] MEDS ORDERED: THIAMINE PO SCH (09:00)
[2020-06-23] MEDS ORDERED: FOLIC ACID PO SCH (09:00)
[2020-06-23] MEDS ORDERED: PROTONIX IV IVP SCH (09:00)
[2020-06-23] MEDS ORDERED: DILAUDID 1 MG/ML SYRINGE IVP PRN (14:41)
[2020-06-23 14:59] VITALS: BP 123/74
[2020-06-23] MEDS ORDERED: SODIUM CHLORIDE 1,000 ML IV SCH (15:00)
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
== END 2020-06-23 16:15 | disposition home or self-care (01) | DRG 897 ==
LOC: ED 05:09 → MEDSURG A 08:13
PROVIDERS: ADMIT Emergency Medicine; ATTEND Emergency Medicine
DX: R61 Generalized hyperhidrosis; F41.9 Anxiety disorder, unspecified; F10.239 Alcohol dependence with withdrawal, unspecified; R63.0 Anorexia; R11.2 Nausea with vomiting, unspecified